=== PATIENT | female | born 1970 | race Hispanic/Latino ===

== ENCOUNTER 2018-02-20 14:14 | Emergency (ER) | payer SELFPAY ==
[2018-02-20] MEDS ORDERED: DEXTROSE 50% SYRINGE 50 ML IV STA (14:21)
[2018-02-20] MEDS ORDERED: DEXTROSE 50% SYRINGE 50 ML IV PRN (14:30)
[2018-02-20 14:40] LABS: BASOPHILS # (AUTO) 0.1 (0.0-0.1); BASOPHILS % 0.6 % (0.0-1.0); EOSINOPHILS # (AUTO) 0.2 (0.0-0.4); EOSINOPHILS % 2.9 % (0.0-6.0); HEMATOCRIT 39.9 % (34.2-44.1); HEMOGLOBIN 13.4 g/dL (12.0-16.0); LYMPHOCYTES # (AUTO) 3.3 (1.0-3.2); LYMPHOCYTES % 42.2 % (18.0-39.1); MEAN CORPUSCULAR HEMOGLOBIN 28.6 pg (28-32); MEAN CORPUSCULAR HGB CONC 33.6 g/dL (31-35); MEAN CORPUSCULAR VOLUME 85.3 fL (81-99); MONOCYTES # (AUTO) 0.8 (0.2-0.8); MONOCYTES % 9.7 % (4.4-11.3); NEUTROPHILS # (AUTO) 3.4 (2.1-6.9); NEUTROPHILS % 44.1 % (38.7-80.0); PLATELET COUNT 277 x10e3/uL (140-360); RED BLOOD COUNT 4.68 x10e6/uL (3.6-5.1); RED CELL DISTRIBUTION WIDTH 13.2 % (11.7-14.4)
[2018-02-20 14:58] LABS: ALANINE AMINOTRANSFERASE 23 IU/L (0-55); ALBUMIN 3.7 g/dL (3.5-5.0); ALKALINE PHOSPHATASE 136 IU/L (40-150); BLOOD UREA NITROGEN 9 mg/dL (7-26); BUN/CREATININE RATIO 12 (6-25); CALCIUM 9.3 mg/dL (8.4-10.2); CARBON DIOXIDE 25 mmol/L (22-29); CHLORIDE 106 mmol/L (98-107); CREATININE, SERUM 0.73 mg/dL (0.57-1.11); EST GLOMERULAR FILTRATION RATE > 60 ML/MIN (60-); SODIUM 142 mmol/L (136-145)
[2018-02-20 15:01] LABS: GLUCOSE 29 mg/dL (74-118)
[2018-02-20] MEDS ORDERED: POTASSIUM CHLORIDE 20 MEQ TAB CR PO STA (16:14)
[2018-02-20] MEDS ORDERED: POTASSIUM CHLORIDE 20 MEQ TAB CR PO NR (16:45)
== END 2018-02-20 17:04 | disposition home or self-care (01) ==
LOC: ER 14:14
DX: E11.649 Type 2 diabetes mellitus with hypoglycemia without coma (principal); E87.6 Hypokalemia; K52.9 Noninfective gastroenteritis and colitis, unspecified
CPT/HCPCS: 36415; 80053; 82948; 85025; 99284

== ENCOUNTER 2018-03-23 13:15 | Emergency (ER) | payer SELFPAY ==
[~2018-03-23] VITALS: Ht 157.5 cm; Wt 77.1 kg
[2018-03-23] MEDS ORDERED: DEXTROSE 50% SYRINGE 50 ML IV STA (13:23)
--- OUTSIDE RECORDS SUMMARY | 2018-03-23 13:26 | XMS REPORT | Continuity of Care Document ---
Author Author Jean [facility] Interface Address Unknown Phone Unavailable Problems Problem Status Onset Date Classification Date Reported Comments Source CHEST PAIN Active 10/09/2017 [facility] Discharge Diagnosis: Brain concussion 04/11/2015 04/14/2015 [facility] Discharge Diagnosis: Mild nausea 04/11/2015 04/14/2015 [facility] DIZZINESS Active 04/11/2015 [facility] Discharge Diagnosis: Gastritis 12/25/2013 12/28/2013 [facility] Discharge Diagnosis: Acute gastroenteritis 12/25/2013 12/28/2013 [facility] DIARRHEA Active 12/25/2013 [facility] Knee pain<sup>4</sup> Active 03/18/2013 Problem 10/13/2017 Data migrated from [employer] on 10/25/14. [facility] Knee pain<sup>5</sup> Active 03/18/2013 Problem 04/14/2015 Data migrated from [employer] on 10/25/14. 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 [facility] Anxiety Active Problem 10/13/2017 [facility] Constipation<sup>2</sup> Active Problem 10/13/2017 Data migrated from [employer] on 10/25/14. [facility] Gastroesophageal reflux disease<sup>3</sup> Active Problem 10/13/2017 Data migrated from [employer] on 10/25/14. [facility] Liver function tests abnormal<sup>5</sup> Active Problem 10/13/2017 Data migrated from [employer] on 10/25/14. [facility] Major depressive disorder<sup>6</sup> Active Problem 10/13/2017 Data migrated from [employer] on 10/25/14. [facility] Menorrhagia<sup>7</sup> Active Problem 10/13/2017 Data migrated from [employer] on 10/25/14. [facility] Obesity Active Problem 10/13/2017 [facility] Skin tag Active Problem 10/13/2017 [facility] Type 1 diabetes mellitus well controlled<sup>8</sup> Active Problem 10/13/2017 Data migrated from [employer] on 10/25/14. [facility] Urinary tract infectious disease<sup>9</sup> Resolved Problem 10/13/2017 Data migrated from [employer] on 12/13/14. [facility] Abdominal pain<sup>1</sup> Active Problem 04/14/2015 Data migrated from [employer] on 10/25/14. [facility] Acute bronchitis<sup>2</sup> Resolved Problem 04/14/2015 Data migrated from [employer] on 12/13/14. [facility] Constipation<sup>3</sup> Active Problem 04/14/2015 Data migrated from [employer] on 10/25/14. [facility] Gastroesophageal reflux disease<sup>4</sup> Active Problem 04/14/2015 Data migrated from [employer] on 10/25/14. [facility] Liver function tests abnormal<sup>6</sup> Active Problem 04/14/2015 Data migrated from [employer] on 10/25/14. [facility] Major depressive disorder<sup>7</sup> Active Problem 04/14/2015 Data migrated from [employer] on 10/25/14. [facility] Menorrhagia<sup>8</sup> Active Problem 04/14/2015 Data migrated from [employer] on 10/25/14. [facility] Type 1 diabetes mellitus well controlled<sup>9</sup> Active Problem 04/14/2015 Data migrated from [employer] on 10/25/14. [facility] Urinary tract infectious disease<sup>10</sup> Resolved Problem 04/14/2015 Data migrated from [employer] on 12/13/14. [facility] DMII KETO NT ST UNCNTRLD Active [facility] Medications Medication Details Route Status Patient Instructions Ordering Provider Order Date Source Insulin Lispro 8 unit, 0.08 mL, Route: SUB-Q, Drug form: SOLN, TID-Before Meals, Dosing Weight 80.909, kg, PRN Blood Glucose Results, Start date: 10/09/17 18:44:00 CDT, Duration: 30 day, Stop date: 11/08/17 18:43:0 0 CDTNotes: (Same as: Humalog ) Roll in palms of hands gently; Do not shake `vigorously. "Single Patient Use Only " WASTE: F/P - Black; E - Municipal Trash Bin Stable for 28 days at room temperature. Expires in days from Date No Longer Active 10/09/2017 [facility] Dextrose 50% Syringe 25 gm, 50 mL, Route: IVP, Drug Form: INJ, Dosing Weight 80.909, kg, PRN, PRN Blood Glucose Results, Start date: 10/09/17 18:44:00 CDT, Duration: 30 day, Stop date: 11/08/17 18:43:00 CDT No Longer Active 10/09/2017 [facility] Glucagon 1 mg, Route: IM, Drug form: PDR/INJ, PRN, Dosing Weight 80.909, kg, PRN Blood Glucose Results, Start date: 10/09/17 18:44:00 CDT, Duration: 30 day, Stop date: 11/08/17 18:43:00 CDT No Longer Active 10/09/2017 [facility] Dextrose 50% Syringe 25 gm, 50 mL, Route: IVP, Drug Form: INJ, Dosing Weight 80.909, kg, PRN, PRN Blood Glucose Results, Start date: 10/09/17 17:50:00 CDT, Duration: 30 day, Stop date: 11/08/17 17:49:00 CDT Inactive 10/09/2017 [facility] Glucagon 1 mg, Route: IM, Drug form: PDR/INJ, PRN, Dosing Weight 80.909, kg, PRN Blood Glucose Results, Start date: 10/09/17 17:50:00 CDT, Duration: 30 day, Stop date: 11/08/17 17:49:00 CDT Inactive 10/09/2017 [facility] Restoril 15 mg, 1 cap, Route: PO, Drug form: CAP, Bedtime, Dosing Weight 80.909, kg, PRN Sleep, Start date: 10/09/17 12:51:00 CDT, Duration: 30 day, Stop date: 11/08/17 12:50:00 CDTNotes: (Same As: Restoril) No Longer Active 10/09/2017 [facility] Ativan 1 mg, 1 tab, Route: PO, Drug form: TAB, TID, Dosing Weight 80.909, kg, PRN Anxiety, Start date: 10/09/17 12:51:00 CDT, Duration: 30 day, Stop date: 11/08/17 12:50:00 CDTNotes: (Same as: Ativan) No Longer Active 10/09/2017 [facility] Dextrose 50% Syringe 25 gm, 50 mL, Route: IVP, Drug Form: INJ, Dosing Weight 80.909, kg, PRN, PRN Blood Glucose Results, Start date: 10/09/17 12:48:00 CDT, Duration: 30 day, Stop date: 11/08/17 12:47:00 CDT Inactive 10/09/2017 [facility] Glucagon 1 mg, Route: IM, Drug form: PDR/INJ, PRN, Dosing Weight 80.909, kg, PRN Blood Glucose Results, Start date: 10/09/17 12:48:00 CDT, Duration: 30 day, Stop date: 11/08/17 12:47:00 CDT Inactive 10/09/2017 [facility] Saline Flush 0.9% 10 ml, Route: IVP, Drug Form: INJ, Dosing Weight 80.909, kg, PRN, PRN Line Flush, Start date: 10/09/17 12:43:00 CDT, Duration: 30 day, Stop date: 11/08/17 12:42:00 CDTNotes: (Same as: BD Posiflush) No Longer Active 10/09/2017 [facility] Acetaminophen 650 mg, 2 tab, Route: PO, Drug form: TAB, Q4H, Dosing Weight 80.909, kg, PRN Pain 1-3/Temp > 100.4 F, Start date: 10/09/17 12:43:00 CDT, Duration: 30 day, Stop date: 11/08/17 12:42:00 CDTNotes: Do not exceed 4 gm/day. (Same as: Tylenol) No Longer Active 10/09/2017 [facility] Regular Insulin, Human 100 UNT/ML Injectable Solution [Humulin R] 12 unit, SUB-Q, TID-Before Meals, 0 Refill(s) Active 10/09/2017 [facility] Tresiba FlexTouch 30 unit, SUB-Q, Daily, 0 Refill(s) Active 10/09/2017 [facility] Rosuvastatin calcium 10 MG Oral Tablet [Crestor] 10 mg=1 tab, PO, Bedtime, # 30 tab, 0 Refill(s) Active 10/09/2017 [facility] Citalopram 10 mg, PO, Daily, 0 Refill(s) Active 10/09/2017 [facility] meclizine 25 mg oral tablet 25 mg=1 tab, PO, TID, PRN as needed for dizziness, X 3 day, # 10 tab, 0 Refill(s) Active 04/11/2015 [facility] Ondansetron 4 MG Disintegrating Tablet [Zofran] 4 mg=1 tab, PO, BID, PRN Nausea and Vomiting, Dissolve tab under tongue, X 5 day, # 10 tab, 0 Refill(s) Active 04/11/2015 [facility] Reglan 10 mg, Route: IVP, Drug form: INJ, ONCE, Dosing Weight 72.727, kg, Priority: STAT, Start date: 04/11/15 16:55:00, Stop date: 04/11/15 16:55:00 Inactive 04/11/2015 [facility] Meclizine 25 mg, Route: PO, Drug form: TAB, ONCE, Dosing Weight 72.727, kg, Priority: STAT, Start date: 04/11/15 16:55:00, Stop date: 04/11/15 16:55:00 Inactive 04/11/2015 [facility] Protonix 40 mg, Route: IVP, Drug form: INJ, ONCE, Dosing Weight 72.727, kg, Priority: STAT, Start date: 04/11/15 14:53:00, Stop date: 04/11/15 14:53:00Notes: For IV push reconstitute with 10 ml 0.9% sodium chloride and push over 2 minutes. (Same as: Protonix) Inactive 04/11/2015 [facility] Ondansetron 4 mg, 2 mL, Route: IVP, Drug form: INJ, ONCE, Dosing Weight 72.727, kg, Priority: STAT, Start date: 04/11/15 14:52:00, Stop date: 04/11/15 14:52:00Notes: (Same as: Shruthi) MEDICATION WASTE Product Size: 4 mg Product Wasted: ___ mg Inactive 04/11/2015 [facility] Glucagon 1 mg, Route: IM, Drug form: PDR/INJ, PRN, Dosing Weight 72.727, kg, PRN Blood Glucose Results, Start date: 04/11/15 14:52:00, Duration: 30 day, Stop date: 05/11/15 14:51:00 No Longer Active 04/11/2015 [facility] Dextrose 50% Syringe 12.5 gm, 25 mL, Route: IVP, Drug Form: INJ, Dosing Weight 72.727, kg, PRN, PRN Blood Glucose Results, Start date: 04/11/15 14:52:00, Duration: 30 day, Stop date: 05/11/15 14:51:00 No Longer Active 04/11/2015 [facility] Saline Flush 0.9% 10 mL, Route: IVP, Drug Form: INJ, Dosing Weight 72.727, kg, PRN, PRN Line Flush, Start date: 04/11/15 14:52:00, Duration: 30 day, Stop date: 05/11/15 14:51:00Notes: (Same as: BD Posiflush) No Longer Active 04/11/2015 [facility] Sodium Chloride 0.154 MEQ/ML Injectable Solution 1,000 mL, 1,000 ml/hr, Infuse Over: 1 hr, Route: IV, 1,000, Drug form: INJ, ONCE, Priority: STAT, Dosing Weight 72.727 kg, Start date: 04/11/15 14:52:00, Duration: 1 doses or times, Stop date: 04/11/15 14:52:00 Inactive 04/11/2015 [facility] Ondansetron 4 MG Disintegrating Tablet [Zofran] 4 mg=1 tab, PO, BID, Nausea and Vomiting, Dissolve tab under tongue, # 10 tab, 0 Refill(s)Special Instructions: Dissolve tab under tongue Active 12/25/2013 [facility] tramadol hydrochloride 50 MG Oral Tablet 50 mg=1 tab, PO, Q6H, Pain, # 10 tab, 0 Refill(s) Active 12/25/2013 [facility] Famotidine 20 MG Oral Tablet [Pepcid] 20 mg=1 tab, PO, BID, # 30 tab, 0 Refill(s) Active 12/25/2013 [facility] Ciprofloxacin 500 MG Oral Tablet [Cipro] 500 mg=1 tab, PO, Q12H, # 6 tab, 0 Refill(s) Active 12/25/2013 [facility] GI cocktail 30 mL, Route: PO, Dosing Weight 68.182, kg, ONCE, STAT, Start date: 12/25/13 5:28:00, Stop date: 12/25/13 5:28:00 Inactive 12/25/2013 [facility] Sodium Chloride 0.154 MEQ/ML Injectable Solution 1,000 mL, 1,000 ml/hr, Infuse Over: 1 hr, Route: IV, 1,000, Drug form: INJ, ONCE, Priority: STAT, Dosing Weight 68.182 kg, Start date: 12/25/13 5:27:00, Duration: 1 doses or times, Stop date: 12/25/13 5:27:00 Inactive 12/25/2013 [facility] Zofran 4 mg, Route: IVP, Drug form: INJ, ONCE, Dosing Weight 68.182, kg, Priority: STAT, Start date: 12/25/13 5:26:00, Stop date: 12/25/13 5:26:00 Inactive 12/25/2013 [facility] Morphine 4 mg, Route: IVP, Drug form: INJ, ONCE, Dosing Weight 68.182, kg, Priority: STAT, Start date: 12/25/13 5:26:00, Stop date: 12/25/13 5:26:00 Inactive 12/25/2013 [facility] Pepcid 20 mg, Route: IV, ONCE, Dosing Weight 68.182, kg, Start date: 12/25/13 5:26:00, Stop date: 12/25/13 5:26:00 Inactive 12/25/2013 [facility] Sodium Chloride 0.154 MEQ/ML Injectable Solution 1,000 mL, 1,000 ml/hr, Infuse Over: 1 hr, Route: IV, ONCE, Priority: STAT, Dosing Weight 68.182 kg, Start date: 12/25/13 4:36:00, Duration: 1 doses or times, Stop date: 12/25/13 4:36:00 Inactive 12/25/2013 [facility] Zofran 4 mg, Route: IVP, Drug form: INJ, ONCE, Dosing Weight 68.182, kg, Priority: STAT, Start date: 12/25/13 4:35:00, Stop date: 12/25/13 4:35:00 Inactive 12/25/2013 [facility] Dale 7.5/325 oral tablet 1 tab, PO, Q6H, PRN, 40 tab, Pain, Substitution Allowed, Maintenance, TAB PO Active [facility] 11/12/2012 [facility] fluoxetine 10 mg oral capsule 10 mg, 1 cap, PO, Daily, 30 cap, 2, 2, Substitution Allowed, CAP PO Active [facility] 11/12/2012 [facility] ranitidine 150 mg oral tablet 150 mg, 1 tab, Route: PO, Drug form: TAB, BID, Dosing Weight 59.091, kg, Start date: 11/12/12 9:00:00, Duration: 30 day, Stop date: 12/11/12 17:00:00 PO No Longer Active [facility] 11/12/2012 [facility] fluoxetine 10 mg, 1 cap, Route: PO, Drug form: CAP, Daily, Dosing Weight 59.091, kg, Start date: 11/12/12 9:00:00, Duration: 30 day, Stop date: 12/11/12 9:00:00 PO No Longer Active [facility] 11/12/2012 [facility] Levemir FlexPen 30 unit, 0.3 mL, Route: SUB-Q, Drug form: INJ, Q12H, Dosing Weight 59.091, kg, Start date: 11/12/12 9:00:00, Duration: 30 day, Stop date: 12/11/12 21:00:00 SUB-Q No Longer Active [facility] 11/12/2012 [facility] Pepcid 20 mg, 1 tab, Route: PO, Drug form: TAB, BID, Start date: 11/12/12 9:00:00, Duration: 30 day, Stop date: 12/11/12 17:00:00 PO No Longer Active [facility] 11/12/2012 [facility] NovoLog PenFill 15 unit, 0.15 mL, Route: SUB-Q, Drug form: SOLN, TID-Before Meals, Dosing Weight 59.091, kg, Start date: 11/12/12 7:30:00, Duration: 30 day, Stop date: 12/11/12 16:30:00 SUB-Q No Longer Active [facility] 11/12/2012 [facility] temazepam 15 mg, 1 cap, Route: PO, Drug form: CAP, Bedtime, Dosing Weight 59.091, kg, Start date: 11/11/12 23:00:00, Duration: 30 day, Stop date: 12/11/12 21:00:00 PO No Longer Active [facility] 11/12/2012 [facility] [place] 7.5/325 oral tablet 1 tab, Route: PO, Drug Form: TAB, Dosing Weight 59.091, kg, Q6H, PRN Pain, Start date: 11/11/12 22:54:00, Duration: 30 day, Stop date: 12/11/12 22:53:00 PO No Longer Active [facility] 11/12/2012 [facility] acetaminophen 1,000 mg, 2 tab, Route: PO, Drug form: TAB, Q4H, Dosing Weight 59.091, kg, PRN Headache, Start date: 11/11/12 22:53:00, Duration: 30 day, Stop date: 12/11/12 22:52:00 PO No Longer Active [facility] 11/12/2012 [facility] Levemir FlexPen 30 unit, 0.3 mL, Route: SUB-Q, Drug form: INJ, ONCE, Dosing Weight 59.091, kg, Priority: NOW, Start date: 11/11/12 21:34:00, Stop date: 11/11/12 21:34:00 SUB-Q No Longer Active [facility] 11/12/2012 [facility] NovoLog PenFill 15 unit, 0.15 mL, Route: SUB-Q, Drug form: SOLN, ONCE, Dosing Weight 59.091, kg, Priority: NOW, Start date: 11/11/12 21:33:00, Stop date: 11/11/12 21:33:00 SUB-Q No Longer Active [facility] 11/12/2012 [facility] nitroglycerin 0.4 mg sublingual tablet 0.4 mg, 1 tab, Route: SL, Drug form: TAB, Q5Min, PRN Chest Pain, Start date: 11/11/12 21:01:00, Duration: 30 day, Stop date: 12/11/12 21:00:00 SL No Longer Active [facility] 11/12/2012 [facility] atropine 0.5 mg, 5 mL, Route: IVP, Drug form: INJ, PRN, PRN Bradycardia, Start date: 11/11/12 21:01:00, Duration: 30 day, Stop date: 12/11/12 21:00:00 IVP No Longer Active [facility] 11/12/2012 [facility] insulin aspart 4 unit, 0.04 mL, Route: SUB-Q, Drug form: SOLN, TID-Before Meals, Dosing Weight 59.091, kg, PRN Blood Glucose Results, Start date: 11/11/12 20:48:00, Duration: 30 day, Stop date: 12/11/12 20:47:00 SUB-Q No Longer Active [facility] 11/12/2012 [facility] glucagon 1 mg, Route: IM, Drug form: PDR/INJ, PRN, Dosing Weight 59.091, kg, PRN Blood Glucose Results, Start date: 11/11/12 20:48:00, Duration: 30 day, Stop date: 12/11/12 20:47:00 IM No Longer Active [facility] 11/12/2012 [facility] Dextrose 50% Syringe 12.5 gm, 25 mL, Route: IVP, Drug Form: INJ, Dosing Weight 59.091, kg, PRN, PRN Blood Glucose Results, Start date: 11/11/12 20:48:00, Duration: 30 day, Stop date: 12/11/12 20:47:00 IVP No Longer Active [facility] 11/12/2012 [facility] NovoLog PenFill 100 units/mL subcutaneous solution 5 unit, SUB-Q, TID-Before Meals, 3 mL, Substitution Allowed, SOLN SUB-Q Active 11/11/2012 [facility] ranitidine 150 mg oral tablet 150 mg, 1 tab, PO, BID, PRN, 60 tab, heartburn, Substitution Allowed PO Active [facility] 11/11/2012 [facility] Lantus Solostar Pen 100 units/mL subcutaneous solution 20 unit, SUB-Q, Bedtime, 10 ml, Substitution Allowed, SOLN SUB-Q Active 11/11/2012 [facility] Lantus Solostar Pen 100 units/mL subcutaneous solution 30 unit, SUB-Q, Daily, 10 ml, Substitution Allowed, SOLN SUB-Q Active 11/11/2012 [facility] fluoxetine 10 mg oral capsule 10 mg, 1 cap, PO, Daily, 60 cap, Substitution Allowed, CAP PO No Longer Active [facility] 11/11/2012 [facility] magnesium sulfate 2 gm, 50 mL, Route: IVPB, Drug form: INJ, ONCE, Dosing Weight 59.091, kg, Total dose=2 gm, Start date: 11/11/12 17:39:00, Duration: 1 doses or times, Stop date: 11/11/12 17:39:00 IVPB No Longer Active [facility] 11/11/2012 [facility] sodium phosphate + Dextrose 5% in Water IV 250 mL 30 mmol, 10 mL, Route: IVPB, ONCE, Dosing Weight 59.091, kg, Start date: 11/11/12 15:29:00, Duration: 1 doses or times, Stop date: 11/11/12 15:29:00, For PO4=1.5 - 1.9 mg/dL; Administer when K level > 3.9mEq/L.For PO4=1.5 - 1.9 mg/dL; Administer when K level > 3.9mEq/L. IVPB No Longer Active [facility] 11/11/2012 [facility] ondansetron 4 mg, Route: IVP, Drug form: INJ, ONCE, Dosing Weight 59.091, kg, Priority: STAT, Start date: 11/11/12 15:28:00, Stop date: 11/11/12 15:28:00 IVP No Longer Active [facility] 11/11/2012 [facility] NS 1,000 mL 1,000 mL, Rate: 150 ml/hr, Infuse over: 6.7 hr, Route: IV, Dosing Weight 59.091 kg, Total Volume: 1,000, Start date: 11/11/12 14:57:00, Duration: 30 day, Stop date: 12/11/12 14:56:00 IV No Longer Active [facility] 11/11/2012 [facility] NS (Bolus) IV 1,000 mL 1,000 mL, Rate: 1,000 ml/hr, Infuse over: 1 hr, Route: IV, Dosing Weight 59.091 kg, Total Volume: 1,000, Priority: STAT, Start date: 11/11/12 14:57:00, Duration: 1 doses or times, Stop date: 11/11/12 15:56:00, Bolus DoseBolus Dose IV No Longer Active [facility] 11/11/2012 [facility] Saline Flush 0.9% 5 mL, Route: IVP, Drug Form: INJ, Dosing Weight 59.091, kg, PRN, PRN Line Flush, Start date: 11/11/12 14:25:00, Duration: 30 day, Stop date: 12/11/12 14:24:00 IVP No Longer Active [facility] 11/11/2012 [facility] Dextrose 50% Syringe 12.5 gm, 25 mL, Route: IVP, Drug Form: INJ, Dosing Weight 59.091, kg, PRN, PRN Blood Glucose Results, Start date: 11/11/12 14:25:00, Duration: 30 day, Stop date: 12/11/12 14:24:00, If Blood Glucose is 40 - 60 mg/dL. For patients that are Unconscious o... IVP No Longer Active [facility] 11/11/2012 [facility] glucagon 1 mg, Route: IM, Drug form: PDR/INJ, PRN, Dosing Weight 59.091, kg, PRN Blood Glucose Results, Start date: 11/11/12 14:25:00, Duration: 30 day, Stop date: 12/11/12 14:24:00, For BG IM No Longer Active [facility] 11/11/2012 [facility] Phenergan 25 mg oral tablet 25 mg, 1 tab, PO, Q4H, PRN, 15 tab, Nausea, Substitution Allowed PO Active [facility] 09/04/2012 [facility] Ultram 50 mg oral tablet 50 mg, 1 tab, PO, Q4H, PRN, 20 tab, pain, Substitution Allowed PO Active [facility] 09/04/2012 [facility] Macrobid 100 mg oral capsule 100 mg, 1 cap, PO, BID, 14 cap, Substitution Allowed PO Active [facility] 09/04/2012 [facility] ondansetron 4 mg, Route: IVP, Drug form: INJ, ONCE, Dosing Weight 77.273, kg, Priority: STAT, Start date: 09/04/12 2:28:00, Stop date: 09/04/12 2:28:00 IVP No Longer Active [facility] 09/04/2012 [facility] ondansetron 4 mg, Route: PO, Drug form: TABDIS, ONCE, Dosing Weight 77.273, kg, Priority: STAT, Start date: 09/04/12 2:11:00, Stop date: 09/04/12 2:11:00 PO No Longer Active [facility] 09/04/2012 [facility] GI cocktail 30 ml, Route: PO, Drug Form: SUSP, Dosing Weight 77.273, kg, ONCE, Formulation #1: (Maalox 30ml - Viscous Lidocaine 10ml - Elixir 10ml), STAT, Start date: 09/04/12 2:11:00, Stop date: 09/04/12 2:11:00 PO No Longer Active [facility] 09/04/2012 [facility] Saline Flush 0.9% 5 mL, Route: IVP, Drug Form: INJ, Dosing Weight 77.273, kg, PRN, PRN Line Flush, Start date: 09/04/12 2:11:00, Duration: 24 hr, Stop date: 09/05/12 2:10:00 IVP No Longer Active [facility] 09/04/2012 [facility] Colace 100 mg oral capsule 100 mg, 1 cap, PO, Daily, 30 cap, Substitution Allowed, CAP PO Active [facility] 12/23/2011 [facility] Protonix 40 mg oral enteric coated tablet 40 mg, 1 tab, PO, Daily, 60 tab, Substitution Allowed, May substitute to another PPI less costly., ECTABMay substitute to another PPI less costly. PO Active [facility] 12/23/2011 [facility] Humulin N 100 units/mL subcutaneous injection 20 unit, 0.2 mL, SUB-Q, QAM, 1 vial, Substitution Allowed, SUSP SUB- Q Active [facility] 12/23/2011 [facility] Humulin N 20 unit, 0.2 mL, Route: SUB-Q, Drug form: INJ, QAM, Start date: 12/23/11 9:00:00, Duration: 30 day, Stop date: 01/21/12 9:00:00 SUB-Q No Longer Active [facility] 12/23/2011 [facility] Dextrose 5% with 0.45% NaCl IV 1,000 mL 1,000 mL, Rate: 30 ml/hr, Infuse over: 33.3 hr, Route: IV, Dosing Weight 60 kg, Total Volume: 1,000, Start date: 12/22/11 21:45:00, Stop date: 01/21/12 21:44:00 IV No Longer Active [facility] 12/23/2011 [facility] Humulin N 20 unit, 0.2 mL, Route: SUB-Q, Drug form: INJ, QPM, Start date: 12/22/11 17:00:00, Duration: 30 day, Stop date: 01/20/12 17:00:00 SUB-Q No Longer Active [facility] 12/22/2011 [facility] Humulin N 5 unit, 0.05 mL, Route: SUB-Q, Drug form: INJ, ONCE, Start date: 12/22/11 10:00:00, Stop date: 12/22/11 10:00:00 SUB-Q No Longer Active [facility] 12/22/2011 [facility] Sodium Chloride 0.45% IV 1,000 mL 1,000 mL, Rate: 100 ml/hr, Infuse over: 10 hr, Route: IV, Dosing Weight 60 kg, Total Volume: 1,000, Start date: 12/22/11 8:15:00, Duration: 30 day, Stop date: 01/21/12 8:14:00 IV No Longer Active [facility] 12/22/2011 [facility] Humulin N 15 unit, 0.15 mL, Route: SUB-Q, Drug form: INJ, Breakfast, Start date: 12/22/11 8:00:00, Duration: 30 day, Stop date: 01/20/12 8:00:00 SUB-Q No Longer Active [facility] 12/22/2011 [facility] Dextrose 50% in Water IV 50 mL, Route: IVP, Start date: 12/21/11 18:39:00, Duration: 30 day, Stop date: 01/20/12 18:38:00, PRN Blood Glucose Results IVP No Longer Active [facility] 12/21/2011 [facility] NovoLog FlexPen 18 unit, 0.18 mL, Route: SUB-Q, Drug form: SOLN, Sliding Scale, PRN Blood Glucose Results, Start date: 12/21/11 18:39:00, Duration: 30 day, Stop date: 01/20/12 18:38:00 SUB-Q No Longer Active [facility] 12/21/2011 [facility] glucagon 1 mg, Route: IM, Drug form: PDR/INJ, PRN, PRN Blood Glucose Results, Start date: 12/21/11 18:39:00, Duration: 30 day, Stop date: 01/20/12 18:38:00 IM No Longer Active [facility] 12/21/2011 [facility] enoxaparin 40 mg, 0.4 mL, Route: SUB-Q, Drug form: INJ, [id number], Start date: 12/21/11 12:00:00, Duration: 30 day, Stop date: 01/19/12 12:00:00 SUB-Q No Longer Active [place] 12/21/2011 [facility] Colace 100 mg oral capsule 100 mg, 1 cap, Route: PO, Drug form: CAP, Daily, Start date: 12/21/11 9:00:00, Duration: 30 day, Stop date: 01/19/12 9:00:00 PO No Longer Active [place] 12/21/2011 [facility] Citrate of Magnesia 150 mL, Route: PO, Drug Form: LIQ, ONCALL, PRN Bowel Movements, Start date: 12/21/11 8:00:00, Duration: 1 doses or times, Stop date: 12/22/11 0:00:00 PO No Longer Active [place] 12/21/2011 [facility] potassium phosphate + Sodium Chloride 0.9% IV 250 mL 14 mmol, 4.67 mL, Route: IV, ONCE, Start date: 12/21/11 2:28:00, Stop date: 12/21/11 2:28:00 IV No Longer Active [place] 12/21/2011 [facility] acetaminophen 500 mg, 1 tab, Route: PO, Drug form: TAB, Q6H, PRN Pain/Fever, Start date: 12/20/11 22:14:00, Duration: 30 day, Stop date: 01/19/12 22:13:00 PO No Longer Active [place] 12/21/2011 [facility] Saline Flush 0.9% 5 ml, Route: IVP, Drug Form: INJ, Q12H, Start date: 12/20/11 21:00:00, Duration: 30 day, Stop date: 01/19/12 9:00:00 IVP No Longer Active [place]iceo 12/21/2011 [facility] magnesium citrate 150 ml, Route: PO, Drug Form: LIQ, ONCE, Start date: 12/20/11 16:52:00, Stop date: 12/20/11 16:52:00 PO No Longer Active [place] 12/20/2011 [facility] Protonix 40 mg, 1 tab, Route: PO, Drug form: ECTAB, Daily, Start date: 12/20/11 16:30:00, Duration: 30 day, Stop date: 01/18/12 16:30:00 PO No Longer Active [place] 12/20/2011 [facility] [place] Heartburn Relief 2 tab, PO, PRN, PRN, heartburn, Substitution Allowed, Soft Stop PO Active 12/20/2011 [facility] Tylenol Cap[place] Extra Strength 500 mg oral tablet 1,000 mg, 2 tab, PO, Q4H, PRN, 120 tab, headache, Substitution Allowed PO Active 12/20/2011 [facility] Novolin N PenFill 100 units/mL subcutaneous injection 15 unit, SUB-Q, BID, 3 ml, Substitution Allowed, SUSP SUB- Q No Longer Active 12/20/2011 [facility] Novolin R PenFill 100 units/mL injectable solution per sliding scale, SUB-Q, QID-Before Meals, Substitution Allowed SUB-Q Active 12/20/2011 [facility] Zofran 4 mg, 2 mL, Route: IVP, Drug form: INJ, Q6H, PRN as needed for nausea/vomiting, Start date: 12/20/11 14:50:00, Duration: 30 day, Stop date: 01/19/12 14:49:00 IVP No Longer Active [place] 12/20/2011 [facility] chlorhexidine topical 4% soap 1 appl, Route: BATHE, Q24H, Start date: 12/20/11 14:00:00, Duration: 30 day, Stop date: 01/18/12 14:00:00 BATHE No Longer Active [facility] 12/20/2011 [facility] D5W 1/2NS 1,000 mL 1,000 mL, Rate: 100 ml/hr, Infuse over: 10 hr, Route: IV, Dosing Weight 59.091 kg, Total Volume: 1,000, Start date: 12/20/11 14:00:00, Stop date: 01/19/12 13:59:00 IV No Longer Active [place] 12/20/2011 [facility] Saline Flush 0.9% 5 ml, Route: IVP, Drug Form: INJ, PRN, PRN Line Flush, Start date: 12/20/11 13:12:00, Duration: 30 day, Stop date: 01/19/12 13:11:00 IVP No Longer Active [facility] 12/20/2011 [facility] Dextrose 50% in Water IV 50 mL, Route: IVP, Start date: 12/20/11 9:29:00, Duration: 30 day, Stop date: 01/19/12 9:28:00, PRN Blood Glucose Results IVP No Longer Active [facility] 12/20/2011 [facility] potassium phosphate + Sodium Chloride 0.9% IV 250 mL 14 mmol, 4.67 mL, Route: IVPB, PRN, PRN Abnormal Lab Result, Start date: 12/20/11 9:28:00, Duration: 1 doses or times, Stop date: Limited # of times IVPB No Longer Active [facility] 12/20/2011 [facility] potassium phosphate + Sodium Chloride 0.9% IV 250 mL 7 mmol, 2.33 mL, Route: IVPB, PRN, PRN Abnormal Lab Result, Start date: 12/20/11 9:27:00, Duration: 1 doses or times, Stop date: Limited # of times IVPB No Longer Active [facility] 12/20/2011 [facility] potassium chloride 20 mEq, 100 mL, Route: IVPB, Drug form: INJ, PRN, PRN Abnormal Lab Result, Start date: 12/20/11 9:26:00, Duration: 3 doses or times, Stop date: Limited # of times IVPB No Longer Active [facility] 12/20/2011 [facility] potassium chloride 20 mEq, 100 mL, Route: IVPB, Drug form: INJ, PRN, PRN Abnormal Lab Result, Start date: 12/20/11 9:25:00, Duration: 2 doses or times, Stop date: Limited # of times IVPB No Longer Active [facility] 12/20/2011 [facility] Novolin R 100 unit + Sodium Chloride 0.9% IV 99 mL 99 mL, Rate: Titrate per DKA protocol, Route: IV, Dosing Weight 59.091 kg, Total Volume: 100, Start date: 12/20/11 9:25:00, Duration: 30 day, Stop date: 01/19/12 9:24:00 IV No Longer Active [facility] 12/20/2011 [facility] Sodium Chloride 0.9% IV 1,000 mL 1,000 mL, Rate: 500 ml/hr, Infuse over: 2 hr, Route: IV, Dosing Weight 59.091 kg, Total Volume: 1,000, Start date: 12/20/11 9:23:00, Duration: 2 doses or times, Stop date: 12/20/11 13:22:00 IV No Longer Active [facility] 12/20/2011 [facility] NS + KCL 20mEq/L 1000ml (Premix) 1,000 mL 1,000 mL, Rate: 200 ml/hr, Infuse over: 5 hr, Route: IV, Dosing Weight 59.091 kg, Total Volume: 1,000, Start date: 12/20/11 8:46:00, Duration: 30 day, Stop date: 01/19/12 8:45:00 IV No Longer Active [facility] 12/20/2011 [facility] Sodium Chloride 0.9% (Bolus) IV 1,000 mL 1,000 mL, Rate: 1,000 ml/hr, Infuse over: 1 hr, Route: IV, Dosing Weight 59.091 kg, Total Volume: 1,000, Bolus dose, Priority: STAT, Start date: 12/20/11 8:12:00, Duration: 1 doses or times, Stop date: 12/20/11 9:11:00 IV No Longer Active [facility] 12/20/2011 [facility] Saline Flush 0.9% 5 ml, Route: IVP, Drug Form: INJ, PRN, PRN Line Flush, Start date: 12/20/11 8:12:00, Duration: 24 hr, Stop date: 12/21/11 8:11:00 IVP No Longer Active [place]iceo 12/20/2011 [facility] hydromorphone 1 mg, 1 mL, Route: IVP, Drug form: SOLN, ONCE, Priority: STAT, Start date: 12/20/11 8:12:00, Stop date: 12/20/11 8:12:00 IVP No Longer Active [facility] 12/20/2011 [facility] ondansetron 4 mg, 2 mL, Route: IVP, Drug form: INJ, ONCE, Priority: STAT, Start date: 12/20/11 8:12:00, Stop date: 12/20/11 8:12:00 IVP No Longer Active [facility] 12/20/2011 [facility] Reglan 10 mg, 2 mL, Route: IVP, Drug form: INJ, ONCE, Priority: STAT, Start date: 12/20/11 8:12:00, Stop date: 12/20/11 8:12:00 IVP No Longer Active [facility] 12/20/2011 [facility] Allergies, Adverse Reactions, Alerts Substance Category Reaction Severity Reaction type Status Date Reported Comments Source iodine Assertion Drug allergy Active [facility] Immunizations Immunization Date Given Site Status Last Updated Comments Source Hx influenza vaccine-unspecified<sup>1</sup> 03/14/2016 completed [place] Location History: work [facility] Hx influenza vaccine-unspecified<sup>2</sup> 03/18/2013 completed GE Result Comment: done. Migrated from OBS ; Data migrated from [employer] on 06/30/2015. [facility] influenza virus vaccine, inactivated<sup>3</sup> 03/18/2013 Right Deltoid completed GE Result Comment: fluzone (>3 yrs.) [[id number]]. Migrated from OBS ; Data migrated from [employer] on 06/30/2015. [facility] Results Order Name Results Value Reference Range Date Interpretation Comments Source ENDOCRINOLOGY S Preg Negative *NA* (10/10/17 5:10 AM) Negative 10/10/2017 [facility] Cardiac SPECT multi studies NM Cardiac SPECT multi studies NM Location: [facility] The patient exercised for 7 minutes and 36 seconds on Rolo protocol. The patient reached 92% of the target heart rate. Cardiolite was injected during peak stress as well as during rest. The myocardial perfusion was obtained using standard procedure. The myocardial perfusion was normal during both phases. No evidence of ischemia. Ejection fraction was 74 % with normal wall motion. IMPRESSION: Normal myocardial perfusion study. [id number] 10/10/2017 - - Read by: Sarah Merrill MD Dictated Date/time: 10/10/17 13:53 Electronically Signed by: Sarah Merrill MD 10/10/17 13:54 FINAL REPORT [facility] LIPIDS VLDL 51 10/10/2017 [facility] LIPIDS CHD Risk 3.90 3.90 - 5.80 10/10/2017 [facility] LIPIDS Chol 187 mg/dL <=199 mg/dL 10/10/2017 [facility] LIPIDS HDL 48 mg/dL >=61 mg/dL 10/10/2017 [facility] LIPIDS LDL (Calculated) 88 mg/dL <=99 mg/dL 10/10/2017 [facility] LIPIDS Trig 256 mg/dL <=149 mg/dL 10/10/2017 [facility] CARDIAC ENZYMES Total CK 216 unit/L 12 - 10/10/2017 [facility] CARDIAC ENZYMES Troponin-I null 0.00 - 0.40 10/10/2017 [facility] CARDIAC ENZYMES CK MB Index 0.9 0.0 - 2.5 10/10/2017 [facility] CARDIAC ENZYMES CK MB 2.0 ng/mL 0.5 - 3.6 10/10/2017 [facility] CARDIAC ENZYMES CK MB Index 0.9 0.0 - 2.5 10/09/2017 [facility] CARDIAC ENZYMES CK MB 2.1 ng/mL 0.5 - 3.6 10/09/2017 [facility] CARDIAC ENZYMES Troponin-I null 0.00 - 0.40 10/09/2017 [facility] CARDIAC ENZYMES Total CK 244 unit/L - 10/09/2017 [facility] CHEM PANEL eGFR 85 mL/min/1.73m2 10/09/2017 Result Comment: The eGFR is calculated using the CKD-EPI formula. In most young, healthy individuals the eGFR will be >90 mL/min/1.73m2. The eGFR declines with age. An eGFR of 60-89 may be normal in some populations, particularly the elderly, for whom the CKD-EPI formula has not been extensively validated. Use of the eGFR is not recommended in the following populations: Individuals with unstable creatinine concentrations, including patients and those with serious co-morbid conditions. Patients with extremes in muscle mass or diet. The data above are obtained from the National Kidney Disease Education Program (NKDEP) which additionally recommends that when the eGFR is used in patients with extremes of body mass index for purposes of drug dosing, the eGFR should be multiplied by the estimated BMI. [facility] CHEM PANEL CO2 26 meq/L 24 - 32 10/09/2017 [facility] CHEM PANEL Chloride Lvl 106 meq/L 95 - 109 10/09/2017 [facility] CHEM PANEL Calcium Lvl 8.9 mg/dL 8.5 - 10.5 10/09/2017 [facility] CHEM PANEL Albumin Lvl 3.7 g/dL 3.5 - 5.0 10/09/2017 [facility] CHEM PANEL Total Protein 7.7 g/dL 6.4 - 8.4 10/09/2017 [facility] CHEM PANEL ALT 25 unit/L 0 - 65 10/09/2017 [facility] CHEM PANEL AST 17 unit/L 0 - 37 10/09/2017 [facility] CHEM PANEL Alk Phos 143 unit/L 39 - 136 10/09/2017 [facility] CHEM PANEL Bili Total 0.6 mg/dL 0.2 - 1.3 10/09/2017 [facility] CHEM PANEL AGAP 13.2 meq/L 10.0 - 20.0 10/09/2017 [facility] CHEM PANEL Globulin 4.0 g/dL 2.7 - 4.2 10/09/2017 [facility] CHEM PANEL B/C Ratio 17 6 - 25 10/09/2017 [facility] CHEM PANEL A/G Ratio 0.9 0.7 - 1.6 10/09/2017 [facility] CHEM PANEL BUN 14 mg/dL 7 - 22 10/09/2017 [facility] CHEM PANEL Glucose Lvl 89 mg/dL 70 - 99 10/09/2017 [facility] CHEM PANEL Sodium Lvl 141 meq/L 135 - 145 10/09/2017 [facility] CHEM PANEL Creatinine Lvl 0.84 mg/dL 0.50 - 1.40 10/09/2017 [facility] CHEM PANEL Potassium Lvl 4.2 meq/L 3.5 - 5.1 10/09/2017 [facility] CHEM PANEL Magnesium Lvl 2.5 mg/dL 1.8 - 2.4 10/09/2017 [facility] HEMATOLOGY Basophils 0.4 % 0.0 - 1.0 10/09/2017 [facility] HEMATOLOGY Segs-Bands # 7.8 K/CMM 1.5 - 8.1 10/09/2017 [facility] Monocytes # 0.1 K/CMM 0.0 - 0.8 10/09/2017 [facility] Lymphocytes # 0.9 K/CMM 1.0 - 5.5 10/09/2017 [facility] Lymphocytes 10.3 % 20.0 - 40.0 10/09/2017 [facility] Segs 88.2 % 45.0 - 75.0 10/09/2017 [facility] Monocytes 1.0 % 2.0 - 12.0 10/09/2017 [facility] Eosinophils 0.1 % 0.0 - 4.0 10/09/2017 [facility] MCH 28.1 pg 27.0 - 31.0 10/09/2017 [facility] MCHC 33.8 g/dL 32.0 - 36.0 10/09/2017 [facility] RDW 13.4 % 11.5 - 14.5 10/09/2017 [facility] Platelet 335 K/CMM 133 - 450 10/09/2017 [facility] MPV 9.2 fL 7.4 - 10.4 10/09/2017 [facility] WBC 8.8 K/CMM 3.7 - 10.4 10/09/2017 [facility] RBC 4.68 M/CMM 4.20 - 5.40 10/09/2017 [facility] MCV 83.0 fL 80.0 - 98.0 10/09/2017 [facility] Hgb 13.1 g/dL 12.0 - 16.0 10/09/2017 [facility] Hct 38.8 % 36.0 - 48.0 10/09/2017 [facility] Ext Lower Venous Doppler Bilat US Ext Lower Venous Doppler Bilat US Patient Name: AGUEDA NEWBY : 1970. Age: 46 years. Gender: Female. MR: [id number]. Location: [facility]. Provider: Sarah Merrill MD. EXAM: Ext Lower Venous Doppler Bilat US. PROVIDED CLINICAL HISTORY: Bilateral leg pains and swelling. Elevated d-dimer. TECHNIQUE: Grayscale, color Doppler, and spectral flow evaluation of the RIGHT and LEFT lower extremity veins. COMPARISON: No relevant prior exams available at the time of interpretation. FINDINGS: Spontaneous compressible flow with normal phasic waveforms and appropriate response to augmentation in all the imaged veins, including the common femoral, femoral, popliteal, posterior tibial, and imaged portions of the central saphenous veins. No evidence of deep venous thrombosis. No Antonio cyst or other abnormal fluid collection. IMPRESSION: No evidence of DVT in the imaged RIGHT or LEFT lower extremity veins. SL: NIYA 10/09/2017 - - Read by: Jaspal Bill MD Dictated Date/time: 10/09/17 15:00 Electronically Signed by: Jaspal Bill MD 10/09/17 15:01 FINAL REPORT [facility] CARDIAC ENZYMES CK MB 0.8 ng/mL 0.5 - 3.6 04/11/2015 [facility] CARDIAC ENZYMES Total CK 73 unit/L 12 - 191 04/11/2015 [facility] CARDIAC ENZYMES Troponin-I null 0.00 - 0.40 04/11/2015 [facility] CARDIAC ENZYMES CK MB Index 1.1 0.0 - 2.5 04/11/2015 [facility] CHEM PANEL Lipase Lvl 80 unit/L 73 - 393 04/11/2015 [facility] CHEM PANEL eGFR 92 mL/min/1.73m2 04/11/2015 Result Comment: The eGFR is calculated using the CKD-EPI formula. In most young, healthy individuals the eGFR will be >90 mL/min/1.73m2. The eGFR declines with age. An eGFR of 60-89 may be normal in some populations, particularly the elderly, for whom the CKD-EPI formula has not been extensively validated. Use of the eGFR is not recommended in the following populations: Individuals with unstable creatinine concentrations, including patients and those with serious co-morbid conditions. Patients with extremes in muscle mass or diet. The data above are obtained from the National Kidney Disease Education Program (NKDEP) which additionally recommends that when the eGFR is used in patients with extremes of body mass index for purposes of drug dosing, the eGFR should be multiplied by the estimated BMI. [facility] CHEM PANEL Total Protein 6.9 g/dL 6.4 - 8.4 04/11/2015 [facility] CHEM PANEL Calcium Lvl 8.5 mg/dL 8.5 - 10.5 04/11/2015 [facility] CHEM PANEL CO2 26 meq/L 24 - 32 04/11/2015 [facility] CHEM PANEL Creatinine Lvl 0.79 mg/dL 0.50 - 1.40 04/11/2015 [facility] CHEM PANEL Bili Total 0.3 mg/dL 0.2 - 1.3 04/11/2015 [facility] CHEM PANEL Alk Phos 139 unit/L 39 - 136 04/11/2015 [facility] CHEM PANEL AST 16 unit/L 0 - 37 04/11/2015 [facility] CHEM PANEL ALT 25 unit/L 0 - 65 04/11/2015 [facility] CHEM PANEL Albumin Lvl 3.1 g/dL 3.5 - 5.0 04/11/2015 [facility] CHEM PANEL Globulin 3.8 g/dL 2.0 - 4.0 04/11/2015 [facility] CHEM PANEL A/G Ratio 0.8 0.7 - 1.6 04/11/2015 [facility] CHEM PANEL B/C Ratio 10 6 - 25 04/11/2015 [facility] CHEM PANEL AGAP 9.8 meq/L 10.0 - 20.0 04/11/2015 [facility] CHEM PANEL BUN 8 mg/dL 7 - 22 04/11/2015 [facility] CHEM PANEL Glucose Lvl 165 mg/dL 70 - 99 04/11/2015 [facility] CHEM PANEL Sodium Lvl 140 meq/L 135 - 145 04/11/2015 [facility] CHEM PANEL Potassium Lvl 3.8 meq/L 3.5 - 5.1 04/11/2015 [facility] CHEM PANEL Chloride Lvl 108 meq/L 95 - 109 04/11/2015 [facility] CHEM PANEL Ketone Quantitative 0.06 mmol/L <=0.27 mmol/L 04/11/2015 [facility] HEMATOLOGY MCH 28.1 pg 27.0 - 31.0 04/11/2015 [facility] HEMATOLOGY RDW 13.1 % 11.5 - 14.5 04/11/2015 [facility] HEMATOLOGY MCHC 33.4 g/dL 32.0 - 36.0 04/11/2015 [facility] HEMATOLOGY MPV 10.3 fL 7.4 - 10.4 04/11/2015 [facility] HEMATOLOGY Platelet 242 K/CMM 133 - 450 04/11/2015 [facility] HEMATOLOGY Hgb 12.5 g/dL 12.0 - 16.0 04/11/2015 [facility] HEMATOLOGY Hct 37.5 % 36.0 - 48.0 04/11/2015 [facility] HEMATOLOGY MCV 84.2 fL 80.0 - 98.0 04/11/2015 [facility] HEMATOLOGY WBC 5.7 K/CMM 3.7 - 10.4 04/11/2015 [facility] HEMATOLOGY RBC 4.46 M/CMM 4.20 - 5.40 04/11/2015 [facility] HEMATOLOGY Monocytes # 0.6 K/CMM 0.0 - 0.8 04/11/2015 [facility] HEMATOLOGY Eosinophils # 0.3 K/CMM 0.0 - 0.5 04/11/2015 [facility] HEMATOLOGY Segs 50.1 % 45.0 - 75.0 04/11/2015 [facility] HEMATOLOGY Lymphocytes 32.6 % 20.0 - 40.0 04/11/2015 [facility] HEMATOLOGY Monocytes 11.1 % 2.0 - 12.0 04/11/2015 [facility] HEMATOLOGY Eosinophils 5.4 % 0.0 - 4.0 04/11/2015 [facility] HEMATOLOGY Segs-Bands # 2.8 K/CMM 1.5 - 8.1 04/11/2015 [facility] HEMATOLOGY Basophils 0.8 % 0.0 - 1.0 04/11/2015 [facility] HEMATOLOGY Lymphocytes # 1.8 K/CMM 1.0 - 5.5 04/11/2015 [facility] URINE AND STOOL UA Color Ltyellow 04/11/2015 [facility] URINE AND STOOL UA Urobilinogen <=1.0 mg/dL 0.1 - 1.0 04/11/2015 [facility] URINE AND STOOL UA Turbidity Clear (04/11/15 3:38 PM) Clear 04/11/2015 [facility] URINE AND STOOL UA Spec Grav 1.010 <=1.030 04/11/2015 [facility] URINE AND STOOL UA Blood Negative (04/11/15 3:38 PM) Negative 04/11/2015 [facility] URINE AND STOOL UA Nitrite Negative (04/11/15 3:38 PM) Negative 04/11/2015 [facility] URINE AND STOOL UA Protein Negative mg/dL Negative mg/dL 04/11/2015 [facility] URINE AND STOOL UA pH 7.0 5.0 - 8.0 04/11/2015 [facility] URINE AND STOOL UA Ketones Negative mg/dL Negative mg/dL 04/11/2015 [facility] URINE AND STOOL UA Glucose 150 mg/dL Negative mg/dL 04/11/2015 [facility] URINE AND STOOL UA Bili Negative *NA* (04/11/15 3:38 PM) Negative 04/11/2015 [facility] URINE AND STOOL UA Leuk Est Negative (04/11/15 3:38 PM) Negative 04/11/2015 [facility] URINE AND STOOL UA Sq Epi Occasional /LPF Few /LPF 04/11/2015 [facility] URINE CHEM U Preg Negative (04/11/15 3:38 PM) Negative 04/11/2015 [facility] Chest 1view DX Chest 1view DX PROCEDURE: Chest 1view REASON FOR EXAM: See Clinic Indication CLINICAL INDICATION: Chest pain COMPARISON: 11/11/2012. FINDINGS: No acute process. No focal consolidation, pleural effusion, or pneumothorax. Stable cardiac silhouette and mediastinum. SL: 12 04/11/2015 - - Read by: Jj Gao MD Dictated Date/time: 04/11/15 16:54 Electronically Signed by: Jj Gao MD 04/11/15 16:55 FINAL REPORT [facility] Brain wo contrast CT Brain wo contrast CT CT scan of the head without contrast: Exam reason: Headache with Trauma seizure Multiple computerized axial tomograms of the head were obtained without contrast. Mild cortical and cerebellar volume loss with compensatory enlargement of the ventricles and subarachnoid spaces is noted. Vascular calcification is noted. There is no acute cortical infarction or hemorrhage noted. There is no mass-effect or midline shift demonstrated. The ventricles are otherwise normal in size, shape and position. The base of skull and bony calvarium are intact. IMPRESSION: No acute intracranial abnormality is noted. Senescent changes are noted intracranially. SL:12 04/11/2015 - - Read by: Donald Coker MD Dictated Date/time: 04/11/15 15:40 Electronically Signed by: Donald Coker MD 04/11/15 15:41 FINAL REPORT [facility] URINE AND STOOL Fecal Leukocyte Few 3 (12/25/13 8:00 AM) 12/25/2013 3Interpretive Data: A Value of None Seen, Rare, or Few is Normal. [facility] URINE AND STOOL UA Color Colorless 12/25/2013 [facility] URINE AND STOOL UA Urobilinogen <=1.0 mg/dL 0.1 - 1.0 12/25/2013 [facility] URINE AND STOOL UA Blood Negative (12/25/13 7:41 AM) Negative 12/25/2013 [facility] URINE AND STOOL UA Nitrite Negative (12/25/13 7:41 AM) Negative 12/25/2013 [facility] URINE AND STOOL UA Ketones Trace mg/dL Negative mg/dL 12/25/2013 [facility] URINE AND STOOL UA Bili Negative *NA* (12/25/13 7:41 AM) Negative 12/25/2013 [facility] URINE AND STOOL UA Bacteria Occasional /HPF None Seen /HPF 12/25/2013 [facility] URINE AND STOOL UA RBC 1 /HPF 0 - 2 12/25/2013 [facility] URINE AND STOOL UA Sq Epi Occasional /LPF Few /LPF 12/25/2013 [facility] URINE AND STOOL UA WBC 1 /HPF 0 - 5 12/25/2013 [facility] URINE AND STOOL UA Leuk Est Negative (12/25/13 7:41 AM) Negative 12/25/2013 [facility] URINE AND STOOL UA pH 6.0 5.0 - 8.0 12/25/2013 [facility] URINE AND STOOL UA Spec Grav 1.015 <=1.030 12/25/2013 [facility] URINE AND STOOL UA Glucose 500 mg/dL Negative mg/dL 12/25/2013 [facility] URINE AND STOOL UA Protein Negative mg/dL Negative mg/dL 12/25/2013 [facility] URINE AND STOOL UA Turbidity Clear (12/25/13 7:41 AM) Clear 12/25/2013 [facility] URINE CHEM U Preg Negative (12/25/13 7:41 AM) Negative 12/25/2013 [facility] CHEM PANEL Lipase Lvl 53 unit/L 73 - 393 12/25/2013 [facility] CHEM PANEL A/G Ratio 0.9 0.7 - 1.6 12/25/2013 [facility] CHEM PANEL B/C Ratio 16 6 - 25 12/25/2013 [facility] CHEM PANEL Globulin 3.9 g/dL 2.0 - 4.0 12/25/2013 [facility] CHEM PANEL AGAP 9.8 meq/L 10.0 - 20.0 12/25/2013 [facility] CHEM PANEL Alk Phos 129 unit/L 39 - 136 12/25/2013 [facility] CHEM PANEL Bili Total 0.6 mg/dL 0.2 - 1.3 12/25/2013 [facility] CHEM PANEL AST 12 unit/L 0 - 37 12/25/2013 [facility] CHEM PANEL ALT 19 unit/L 0 - 65 12/25/2013 [facility] CHEM PANEL Total Protein 7.6 g/dL 6.4 - 8.4 12/25/2013 [facility] CHEM PANEL Albumin Lvl 3.7 g/dL 3.5 - 5.0 12/25/2013 [facility] CHEM PANEL Calcium Lvl 9.4 mg/dL 8.5 - 10.5 12/25/2013 [facility] CHEM PANEL Potassium Lvl 3.8 meq/L 3.5 - 5.1 12/25/2013 [facility] CHEM PANEL CO2 28 meq/L 24 - 32 12/25/2013 [facility] CHEM PANEL Chloride Lvl 100 meq/L 95 - 109 12/25/2013 [facility] CHEM PANEL eGFR 79 mL/min/1.73m2 12/25/2013 1Result Comment: The eGFR is calculated using the CKD-EPI formula. In most young, healthy individuals the eGFR will be >90 mL/min/1.73m2. The eGFR declines with age. An eGFR of 60-89 may be normal in some populations, particularly the elderly, for whom the CKD-EPI formula has not been extensively validated. Use of the eGFR is not recommended in the following populations: Individuals with unstable creatinine concentrations, including patients and those with serious co-morbid conditions. Patients with extremes in muscle mass or diet. The data above are obtained from the National Kidney Disease Education Program (NKDEP) which additionally recommends that when the eGFR is used in patients with extremes of body mass index for purposes of drug dosing, the eGFR should be multiplied by the estimated BMI. [facility] CHEM PANEL Sodium Lvl 134 meq/L 135 - 145 12/25/2013 [facility] CHEM PANEL Creatinine Lvl 0.9 mg/dL 0.5 - 1.4 12/25/2013 [facility] CHEM PANEL BUN 14 mg/dL 7 - 22 12/25/2013 [facility] CHEM PANEL Glucose Lvl 354 mg/dL 70 - 99 12/25/2013 2Interpretive Data: Adult reference range values reflect the clinical guidelines of the [place] [employer]. [facility] CHEM PANEL Amylase Lvl 12 unit/L 25 - 115 12/25/2013 [facility] ENDOCRINOLOGY S Preg Negative *NA* (12/25/13 4:30 AM) Negative 12/25/2013 [facility] HEMATOLOGY Lymphocytes 11.8 % 20.0 - 40.0 12/25/2013 [facility] HEMATOLOGY Eosinophils 2.2 % 0.0 - 4.0 12/25/2013 [facility] HEMATOLOGY Monocytes 7.2 % 2.0 - 12.0 12/25/2013 [facility] HEMATOLOGY Basophils 0.3 % 0.0 - 1.0 12/25/2013 [facility] HEMATOLOGY Segs-Bands # 8.0 K/CMM 1.5 - 8.1 12/25/2013 [facility] HEMATOLOGY Lymphocytes # 1.2 K/CMM 1.0 - 5.5 12/25/2013 [facility] HEMATOLOGY Monocytes # 0.7 K/CMM 0.0 - 0.8 12/25/2013 [facility] HEMATOLOGY Eosinophils # 0.2 K/CMM 0.0 - 0.5 12/25/2013 [facility] Segs 78.5 % 45.0 - 75.0 12/25/2013 [facility] WBC 10.1 K/CMM 3.7 - 10.4 12/25/2013 [facility] RBC 4.71 M/CMM 4.20 - 5.40 12/25/2013 [facility] Platelet 263 K/CMM 133 - 450 12/25/2013 [facility] MPV 10.1 fL 7.4 - 10.4 12/25/2013 [facility] MCH 28.7 pg 27.0 - 31.0 12/25/2013 [facility] RDW 13.4 % 11.5 - 14.5 12/25/2013 [facility] MCV 84.4 fL 81.0 - 99.0 12/25/2013 [facility] MCHC 34.1 g/dL 32.0 - 36.0 12/25/2013 [facility] Hct 39.8 % 36.0 - 48.0 12/25/2013 [facility] Hgb 13.6 g/dL 12.0 - 16.0 12/25/2013 [facility] IMMUNOLOGY CDC HIV 4th GEN Negative (12/25/13 4:30 AM) Negative 12/25/2013 [facility] BEDSIDE GLUCOSE TESTING Gluc POC Lifscn 74 mg/dL 70 - 99 11/12/2012 Normal 1Interpretive Data: Upper Reportable Limit: 200 mg/dL. [facility] CHEMISTRY Glucose Lvl 38 mg/dL 70 - 99 11/12/2012 CRIT 6Interpretive Data: Adult reference range values reflect the clinical guidelines of the [place] [employer]. [facility] BEDSIDE GLUCOSE TESTING Comment1 Assess patient 11/12/2012 NA [facility] BEDSIDE GLUCOSE TESTING Gluc POC Lifscn 49 mg/dL 70 - 99 11/12/2012 LOW 2Interpretive Data: Upper Reportable Limit: 200 mg/dL. [facility] BEDSIDE GLUCOSE TESTING Comment2 Verify w/ Lab 11/12/2012 NA [facility] BEDSIDE GLUCOSE TESTING Gluc POC Lifscn null 70 - 99 11/12/2012 CRIT 3Interpretive Data: Upper Reportable Limit: 200 mg/dL. [facility] BEDSIDE GLUCOSE TESTING Comment1 Notify RN/ 11/12/2012 NA [facility] BEDSIDE GLUCOSE TESTING Comment1 Notify RN/ 11/12/2012 [facility] CHEMISTRY Hgb A1C 8.1 % <=5.6 11/12/2012 [place] 9Interpretive Data: The reference range is based on the clinical practice guidelines of the [place] [employer] for diabetes screening; levels of 5.7%-6.4% are indicative of pre-diabetes. [facility] CHEMISTRY Troponin-I null 0.00 - 0.40 11/11/2012 Normal [facility] CHEMISTRY CK MB 0.9 ng/mL 0.5 - 3.6 11/11/2012 Normal [facility] CHEMISTRY pCO2 Yoshi 42 mm[Hg] 38 - 52 11/11/2012 Normal [facility] CHEMISTRY pO2 Yoshi 51 mm[Hg] 20 - 49 11/11/2012 [facility] CHEMISTRY BE Yoshi 2 mMol/L -2-2 - 2 11/11/2012 Normal [facility] CHEMISTRY HCO3 Yoshi 27 mMol/L 22 - 26 11/11/2012 [facility] CHEMISTRY O2 Sat Yoshi 86.1 % 40.0 - 70.0 11/11/2012 [facility] CHEMISTRY pH Yoshi 7.41 7.28 - 7.42 11/11/2012 Normal [facility] CHEMISTRY Temp Yoshi 37.0 Elaine 11/11/2012 [facility] CHEMISTRY Site Yoshi Vein (11/11/2012 14:50:00) 11/11/2012 Normal [facility] CHEMISTRY FiO2 Yoshi 21.0 11/11/2012 [facility] CHEMISTRY Allens Yoshi N/A (11/11/2012 14:50:00) 11/11/2012 Normal [facility] CHEMISTRY Phosphorus 1.4 mg/dL 2.5 - 4.5 11/11/2012 CRIT 8Result Comment: Critical Result(s) called to Hellen at 11/11/2012 15:26 byAE. Read back OK. [facility] CHEMISTRY Sodium Lvl 144 meq/L 135 - 145 11/11/2012 Normal [facility] CHEMISTRY Potassium Lvl 3.5 meq/L 3.5 - 5.1 11/11/2012 Normal [facility] CHEMISTRY Chloride Lvl 107 meq/L 95 - 109 11/11/2012 Normal [facility] CHEMISTRY eGFR 92 mL/min/1.73m2 11/11/2012 NA 4Result Comment: The eGFR is calculated using the CKD-EPI formula. In most young, healthy individuals the eGFR will be >90 mL/min/1.73m2. The eGFR declines with age. An eGFR of 60-89 may be normal in some populations, particularly the elderly, for whom the CKD-EPI formula has not been extensively validated. Use of the eGFR is not recommended in the following populations: Individuals with unstable creatinine concentrations, including patients and those with serious co-morbid conditions. Patients with extremes in muscle mass or diet. The data above are obtained from the National Kidney Disease Education Program (NKDEP) which additionally recommends that when the eGFR is used in patients with extremes of body mass index for purposes of drug dosing, the eGFR should be multiplied by the estimated BMI. [facility] CHEMISTRY AST 12 unit/L 0 - 37 11/11/2012 Normal [facility] CHEMISTRY Albumin Lvl 3.4 g/dL 3.5 - 5.0 11/11/2012 LOW [facility] CHEMISTRY Total Protein 7.2 g/dL 6.4 - 8.4 11/11/2012 Normal [facility] CHEMISTRY Calcium Lvl 8.4 mg/dL 8.5 - 10.5 11/11/2012 LOW [facility] CHEMISTRY Bili Total 0.2 mg/dL 0.2 - 1.3 11/11/2012 Normal [facility] CHEMISTRY Alk Phos 107 unit/L 39 - 136 11/11/2012 Normal [facility] CHEMISTRY ALT 23 unit/L 0 - 65 11/11/2012 Normal [facility] CHEMISTRY BUN 8 mg/dL 7 - 22 11/11/2012 Normal [facility] CHEMISTRY Creatinine Lvl 0.8 mg/dL 0.5 - 1.4 11/11/2012 Normal [facility] CHEMISTRY CO2 26 meq/L 24 - 32 11/11/2012 Normal [facility] CHEMISTRY Glucose Lvl 156 mg/dL 70 - 99 11/11/2012 [place] 7Interpretive Data: Adult reference range values reflect the clinical guidelines of the [place] [employer]. [facility] CHEMISTRY A/G Ratio 0.9 0.7 - 1.6 11/11/2012 Normal [facility] CHEMISTRY Globulin 3.8 g/dL 2.0 - 4.0 11/11/2012 Normal [facility] CHEMISTRY B/C Ratio 10 6 - 25 11/11/2012 Normal [facility] CHEMISTRY AGAP 14.5 meq/L 10.0 - 20.0 11/11/2012 Normal [facility] CHEMISTRY Magnesium Lvl 1.3 mg/dL 1.8 - 2.4 11/11/2012 LOW [facility] CHEMISTRY Ketone Quantitative 0.06 mmol/L <=0.27 11/11/2012 Normal [facility] CHEMISTRY S Preg Negative *NA* (11/11/2012 14:48:00) Negative 11/11/2012 NA [facility] HEMATOLOGY WBC 7.6 K/CMM 3.7 - 10.4 11/11/2012 Normal [facility] HEMATOLOGY Hgb 12.8 g/dL 12.0 - 16.0 11/11/2012 Normal [facility] HEMATOLOGY RBC 4.38 M/CMM 4.20 - 5.40 11/11/2012 Normal [facility] HEMATOLOGY MPV 9.5 fL 7.4 - 10.4 11/11/2012 Normal [facility] HEMATOLOGY RDW 13.0 % 11.5 - 14.5 11/11/2012 Normal [facility] HEMATOLOGY Platelet 270 K/CMM 133 - 450 11/11/2012 Normal [facility] HEMATOLOGY MCV 86.6 fL 81.0 - 99.0 11/11/2012 Normal [facility] HEMATOLOGY MCHC 33.6 g/dL 32.0 - 36.0 11/11/2012 Normal [facility] HEMATOLOGY MCH 29.1 pg 27.0 - 31.0 11/11/2012 Normal [facility] HEMATOLOGY Hct 38.0 % 36.0 - 48.0 11/11/2012 Normal [facility] HEMATOLOGY Eosinophils # 0.1 K/CMM 0.0 - 0.5 11/11/2012 Normal [facility] HEMATOLOGY Basophils # 0.0 K/CMM 0.0 - 0.2 11/11/2012 Normal [facility] HEMATOLOGY Monocytes # 0.6 K/CMM 0.0 - 0.8 11/11/2012 Normal [facility] HEMATOLOGY Lymphocytes # 1.4 K/CMM 1.0 - 5.5 11/11/2012 Normal [facility] HEMATOLOGY Basophils 0.5 % 0.0 - 1.0 11/11/2012 Normal [facility] HEMATOLOGY Segs-Bands # 5.5 K/CMM 1.5 - 8.1 11/11/2012 Normal [facility] HEMATOLOGY Monocytes 7.6 % 2.0 - 12.0 11/11/2012 Normal [facility] HEMATOLOGY Eosinophils 1.0 % 0.0 - 4.0 11/11/2012 Normal [facility] HEMATOLOGY Lymphocytes 18.2 % 20.0 - 40.0 11/11/2012 LOW [facility] HEMATOLOGY Segs 72.7 % 45.0 - 75.0 11/11/2012 Normal [facility] URINALYSIS UA Sq Epi Occasional /LPF *NA* (11/11/2012 14:48:00) Few 11/11/2012 NA [facility] URINALYSIS UA Leuk Est Negative (11/11/2012 14:48:00) Negative 11/11/2012 Normal [facility] URINALYSIS UA Bili Negative *NA* (11/11/2012 14:48:00) Negative 11/11/2012 NA [facility] URINALYSIS UA Blood Negative (11/11/2012 14:48:00) Negative 11/11/2012 Normal [facility] URINALYSIS UA Nitrite Negative (11/11/2012 14:48:00) Negative 11/11/2012 Normal [facility] URINALYSIS UA WBC 1 /HPF 0 - 5 11/11/2012 Normal [facility] URINALYSIS UA Color Ltyellow 11/11/2012 NA [facility] URINALYSIS UA Urobilinogen <=1.0 mg/dL
*NA*
(11/11/2012 14:48:00) <sup> </sup> 0.1 - 1.0 11/11/2012 NA [facility] URINALYSIS UA Turbidity Clear (11/11/2012 14:48:00) Clear 11/11/2012 Normal [facility] URINALYSIS UA pH 6.0 5.0 - 8.0 11/11/2012 Normal [facility] URINALYSIS UA Ketones Trace mg/dL *ABN* (11/11/2012 14:48:00) Negative 11/11/2012 ABN [facility] URINALYSIS UA Glucose 500 mg/dL *ABN* (11/11/2012 14:48:00) Negative 11/11/2012 ABN [facility] URINALYSIS UA Protein Negative mg/dL (11/11/2012 14:48:00) Negative 11/11/2012 Normal [facility] URINALYSIS UA Spec Grav 1.023 <=1.030 11/11/2012 Normal [facility] Chest 1view Chest 1view Portable chest: The cardiac silhouette and pulmonary vasculature are within normal limits. The lungs and pleural spaces are clear. There is no significant change compared to 12/20/2011. IMPRESSION: No acute radiographic abnormality in the chest. SL:13 11/11/2012 - - Read by: Bk Bishop Dictated Date/time: 11/11/12 15:26 Electronically Signed by: Bk Bishop MD 11/11/12 15:26 FINAL REPORT [facility] CHEMISTRY BUN 11 mg/dL 7 - 22 09/04/2012 Normal [facility] CHEMISTRY Glucose Lvl 232 mg/dL 70 - 99 09/04/2012 HI 3Interpretive Data: Adult reference range values reflect the clinical guidelines of the [place] [employer]. [facility] CHEMISTRY Creatinine Lvl 0.6 mg/dL 0.5 - 1.4 09/04/2012 Normal [facility] CHEMISTRY AST 16 unit/L 0 - 37 09/04/2012 Normal [facility] CHEMISTRY Bili Total 0.5 mg/dL 0.2 - 1.3 09/04/2012 Normal [facility] CHEMISTRY Total Protein 7.4 g/dL 6.4 - 8.4 09/04/2012 Normal [facility] CHEMISTRY ALT 26 unit/L 0 - 65 09/04/2012 Normal [facility] CHEMISTRY Albumin Lvl 3.6 g/dL 3.5 - 5.0 09/04/2012 Normal [facility] CHEMISTRY Calcium Lvl 8.1 mg/dL 8.5 - 10.5 09/04/2012 LOW [facility] CHEMISTRY Alk Phos 98 unit/L 39 - 136 09/04/2012 Normal [facility] CHEMISTRY CO2 24 meq/L 24 - 32 09/04/2012 Normal [facility] CHEMISTRY eGFR 114 mL/min/1.73m2 09/04/2012 NA 2Result Comment: The eGFR is calculated using the CKD-EPI formula. In most young, healthy individuals the eGFR will be >90 mL/min/1.73m2. The eGFR declines with age. An eGFR of 60-89 may be normal in some populations, particularly the elderly, for whom the CKD-EPI formula has not been extensively validated. Use of the eGFR is not recommended in the following populations: Individuals with unstable creatinine concentrations, including patients and those with serious co-morbid conditions. Patients with extremes in muscle mass or diet. The data above are obtained from the National Kidney Disease Education Program (NKDEP) which additionally recommends that when the eGFR is used in patients with extremes of body mass index for purposes of drug dosing, the eGFR should be multiplied by the estimated BMI. [facility] CHEMISTRY Potassium Lvl 4.2 meq/L 3.5 - 5.1 09/04/2012 Normal [facility] CHEMISTRY Chloride Lvl 107 meq/L 95 - 109 09/04/2012 Normal [facility] CHEMISTRY Sodium Lvl 138 meq/L 135 - 145 09/04/2012 Normal [facility] CHEMISTRY AGAP 11.2 meq/L 10.0 - 20.0 09/04/2012 Normal [facility] CHEMISTRY B/C Ratio 18 6 - 25 09/04/2012 Normal [facility] CHEMISTRY A/G Ratio 0.9 0.7 - 1.6 09/04/2012 Normal [facility] CHEMISTRY Globulin 3.8 g/dL 2.0 - 4.0 09/04/2012 Normal [facility] CHEMISTRY Lipase Lvl 69 unit/L 73 - 393 09/04/2012 LOW [facility] HEMATOLOGY MPV 10.3 fL 7.4 - 10.4 09/04/2012 Normal [facility] HEMATOLOGY Platelet 245 K/CMM 133 - 450 09/04/2012 Normal [facility] HEMATOLOGY RDW 12.8 % 11.5 - 14.5 09/04/2012 Normal [facility] HEMATOLOGY MCHC 33.5 g/dL 32.0 - 36.0 09/04/2012 Normal [facility] HEMATOLOGY MCH 29.3 pg 27.0 - 31.0 09/04/2012 Normal [facility] HEMATOLOGY MCV 87.4 fL 81.0 - 99.0 09/04/2012 Normal [facility] HEMATOLOGY Hct 38.7 % 36.0 - 48.0 09/04/2012 Normal [facility] HEMATOLOGY Hgb 12.9 g/dL 12.0 - 16.0 09/04/2012 Normal [facility] HEMATOLOGY RBC 4.43 M/CMM 4.20 - 5.40 09/04/2012 Normal [facility] HEMATOLOGY WBC 8.0 K/CMM 3.7 - 10.4 09/04/2012 Normal [facility] HEMATOLOGY Basophils # 0.0 K/CMM 0.0 - 0.2 09/04/2012 Normal [facility] HEMATOLOGY Monocytes # 0.5 K/CMM 0.0 - 0.8 09/04/2012 Normal [facility] HEMATOLOGY Lymphocytes # 1.0 K/CMM 1.0 - 5.5 09/04/2012 Normal [facility] HEMATOLOGY Segs-Bands # 5.6 K/CMM 1.5 - 8.1 09/04/2012 Normal [facility] HEMATOLOGY Basophils 0.3 % 0.0 - 1.0 09/04/2012 Normal [facility] HEMATOLOGY Eosinophils # 0.8 K/CMM 0.0 - 0.5 09/04/2012 HI [facility] HEMATOLOGY Eosinophils 10.4 % 0.0 - 4.0 09/04/2012 HI [facility] HEMATOLOGY Monocytes 6.6 % 2.0 - 12.0 09/04/2012 Normal [facility] HEMATOLOGY Lymphocytes 12.9 % 20.0 - 40.0 09/04/2012 LOW [facility] HEMATOLOGY Segs 69.8 % 45.0 - 75.0 09/04/2012 Normal [facility] Microbiology Culture: Urine 09/04/2012 [facility] CHEMISTRY U Preg Negative (09/04/2012 00:30:00) Negative 09/04/2012 Normal [facility] URINALYSIS UA Glucose Negative mg/dL *NA* (09/04/2012 00:30:00) Negative 09/04/2012 [facility] URINALYSIS UA Protein Negative mg/dL (09/04/2012 00:30:00) Negative 09/04/2012 Normal [facility] URINALYSIS UA Trans Epi 3 /LPF <=0 09/04/2012 [facility] URINALYSIS UA Blood Small *ABN* (09/04/2012 00:30:00) Negative 09/04/2012 ABN [facility] URINALYSIS UA Bili Negative *NA* (09/04/2012 00:30:00) Negative 09/04/2012 [facility] URINALYSIS UA Ketones Negative mg/dL *NA* (09/04/2012 00:30:00) Negative 09/04/2012 [facility] URINALYSIS UA Nitrite Negative (09/04/2012 00:30:00) Negative 09/04/2012 Normal [facility] URINALYSIS UA Urobilinogen 2.0 mg/dL 0.1 - 1.0 09/04/2012 [facility] URINALYSIS UA Leuk Est Small *ABN* (09/04/2012 00:30:00) Negative 09/04/2012 ABN [facility] URINALYSIS UA RBC 2 /HPF 0 - 2 09/04/2012 Normal [facility] URINALYSIS UA Sq Epi Occasional /LPF *NA* (09/04/2012 00:30:00) Few 09/04/2012 NA [facility] URINALYSIS UA [place] Yeast Few /HPF *ABN* (09/04/2012 00:30:00) None Seen 09/04/2012 ABN [facility] URINALYSIS UA WBC 22 /HPF 0 - 5 09/04/2012 HI [facility] URINALYSIS UA pH 7.0 5.0 - 8.0 09/04/2012 Normal [facility] URINALYSIS UA Spec Grav 1.011 <=1.030 09/04/2012 Normal [facility] URINALYSIS UA Color Yellow *NA* (09/04/2012 00:30:00) Yellow 09/04/2012 NA [facility] URINALYSIS UA Turbidity Clear (09/04/2012 00:30:00) Clear 09/04/2012 Normal [facility] BEDSIDE GLUCOSE TESTING Comment1 Notify PHOEBE/ 09/04/2012 NA [facility] BEDSIDE GLUCOSE TESTING Gluc POC Lifscn 159 mg/dL 70 - 99 09/04/2012 HI 1Interpretive Data: Upper Reportable Limit: 200 mg/dL. [facility] BEDSIDE GLUCOSE TESTING Comment1 Assess patient 12/23/2011 NA [facility] BEDSIDE GLUCOSE TESTING Comment2 Notify PHOEBE/ 12/23/2011 NA [facility] BEDSIDE GLUCOSE TESTING Gluc POC Lifscn 107 mg/dL 70 - 99 12/23/2011 HI 2Interpretive Data: Upper Reportable Limit: 200 mg/dL. [facility] BEDSIDE GLUCOSE TESTING Comment2 Notify PHOEBE/ 12/23/2011 NA [facility] BEDSIDE GLUCOSE TESTING Comment1 Assess patient 12/23/2011 [facility] BEDSIDE GLUCOSE TESTING Gluc POC Lifscn 60 mg/dL 70 - 99 12/23/2011 LOW 3Interpretive Data: Upper Reportable Limit: 200 mg/dL. [facility] BEDSIDE GLUCOSE TESTING Comment2 Notify LEONCIO 12/23/2011 NA [facility] BEDSIDE GLUCOSE TESTING Comment1 Assess patient 12/23/2011 [facility] BEDSIDE GLUCOSE TESTING Gluc POC Lifscn 328 mg/dL 70 - 99 12/23/2011 HI 4Interpretive Data: Upper Reportable Limit: 200 mg/dL. [facility] CHEMISTRY Sodium Lvl 142 meq/L 135 - 145 12/23/2011 Normal [facility] CHEMISTRY BUN 8 mg/dL 7 - 12/23/2011 Normal [facility] CHEMISTRY Creatinine Lvl 0.7 mg/dL 0.5 - 1.4 12/23/2011 Normal [facility] CHEMISTRY AGAP 12.6 meq/L 10.0 - 20.0 12/23/2011 Normal [facility] CHEMISTRY CO2 27 meq/L 24 - 32 12/23/2011 Normal [facility] CHEMISTRY Calcium Lvl 8.1 mg/dL 8.5 - 10.5 12/23/2011 LOW [facility] CHEMISTRY Chloride Lvl 106 meq/L 95 - 109 12/23/2011 Normal [facility] CHEMISTRY Potassium Lvl 3.6 meq/L 3.5 - 5.1 12/23/2011 Normal [facility] CHEMISTRY Glucose Lvl 154 mg/dL 70 - 99 12/23/2011 HI 8Interpretive Data: Adult reference range values reflect the clinical guidelines of the [place] [employer]. [facility] HEMATOLOGY Eosinophils # 0.4 K/CMM 0.0 - 0.5 12/23/2011 Normal [facility] HEMATOLOGY Basophils # 0.0 K/CMM 0.0 - 0.2 12/23/2011 Normal [facility] HEMATOLOGY Monocytes # 0.6 K/CMM 0.0 - 0.8 12/23/2011 Normal [facility] HEMATOLOGY Lymphocytes # 2.7 K/CMM 1.0 - 5.5 12/23/2011 Normal [facility] HEMATOLOGY Segs 34.1 % 45.0 - 75.0 12/23/2011 LOW [facility] HEMATOLOGY Lymphocytes 48.1 % 20.0 - 40.0 12/23/2011 HI [facility] HEMATOLOGY Segs-Bands # 1.9 K/CMM 1.5 - 8.1 12/23/2011 Normal [facility] HEMATOLOGY Basophils 0.6 % 0.0 - 1.0 12/23/2011 Normal [facility] HEMATOLOGY Eosinophils 7.2 % 0.0 - 4.0 12/23/2011 HI [facility] HEMATOLOGY Monocytes 10.0 % 2.0 - 12.0 12/23/2011 Normal [facility] HEMATOLOGY MPV 9.5 fL 7.4 - 10.4 12/23/2011 Normal [facility] HEMATOLOGY Platelet 203 K/CMM 133 - 450 12/23/2011 Normal [facility] HEMATOLOGY RDW 13.4 % 11.5 - 14.5 12/23/2011 Normal [facility] HEMATOLOGY MCHC 33.9 g/dL 32.0 - 36.0 12/23/2011 Normal [facility] HEMATOLOGY MCV 87.3 fL 81.0 - 99.0 12/23/2011 Normal [facility] HEMATOLOGY Hct 32.3 % 36.0 - 48.0 12/23/2011 LOW [facility] HEMATOLOGY Hgb 11.0 g/dL 12.0 - 16.0 12/23/2011 LOW [facility] HEMATOLOGY RBC 3.71 M/CMM 4.20 - 5.40 12/23/2011 LOW [facility] HEMATOLOGY MCH 29.6 pg 27.0 - 31.0 12/23/2011 Normal [facility] HEMATOLOGY WBC 5.6 K/CMM 3.7 - 10.4 12/23/2011 Normal [facility] CHEMISTRY Phosphorus 2.9 mg/dL 2.5 - 4.5 12/22/2011 Normal [facility] CHEMISTRY Calcium Lvl 7.6 mg/dL 8.5 - 10.5 12/22/2011 LOW [facility] CHEMISTRY Creatinine Lvl 0.6 mg/dL 0.5 - 1.4 12/22/2011 Normal [facility] CHEMISTRY Glucose Lvl 399 mg/dL 70 - 99 12/22/2011 [place] 9Interpretive Data: Adult reference range values reflect the clinical guidelines of the [place] [employer]. [facility] CHEMISTRY AGAP 10.8 meq/L 10.0 - 20.0 12/22/2011 Normal [facility] CHEMISTRY CO2 22 meq/L 24 - 32 12/22/2011 LOW [facility] CHEMISTRY Potassium Lvl 3.8 meq/L 3.5 - 5.1 12/22/2011 Normal [facility] CHEMISTRY Chloride Lvl 109 meq/L 95 - 109 12/22/2011 Normal [facility] CHEMISTRY BUN 6 mg/dL 7 - 22 12/22/2011 LOW [facility] CHEMISTRY Sodium Lvl 138 meq/L 135 - 145 12/22/2011 Normal [facility] CHEMISTRY Ketone Quantitative 0.11 mmol/L <=0.27 12/21/2011 Normal [facility] CHEMISTRY Osmolality 301 mOsm/kg 280 - 300 12/21/2011 [facility] CHEMISTRY AGAP 11.9 meq/L 10.0 - 20.0 12/21/2011 Normal [facility] CHEMISTRY Calcium Lvl 7.7 mg/dL 8.5 - 10.5 12/21/2011 LOW [facility] CHEMISTRY CO2 21 meq/L 24 - 32 12/21/2011 LOW [facility] CHEMISTRY Chloride Lvl 116 meq/L 95 - 109 12/21/2011 [facility] CHEMISTRY eGFR null 12/21/2011 NA 5Result Comment: Expected eGFR for >20 yr. age group: >=60 ml/min/1.73 sq m The eGFR calculation is not valid in or for persons < 18 years of age. From National Kid[employer] Disease Education Program (NKDEP) [facility] CHEMISTRY Creatinine Lvl 0.8 mg/dL 0.5 - 1.4 12/21/2011 Normal [facility] CHEMISTRY Potassium Lvl 3.9 meq/L 3.5 - 5.1 12/21/2011 Normal [facility] CHEMISTRY Sodium Lvl 145 meq/L 135 - 145 12/21/2011 Normal [facility] CHEMISTRY Glucose Lvl 162 mg/dL 70 - 99 12/21/2011 HI 10Interpretive Data: Adult reference range values reflect the clinical guidelines of the [place] [employer]. [facility] CHEMISTRY BUN 2 mg/dL 7 - 12/21/2011 LOW [facility] CHEMISTRY Phosphorus 0.9 mg/dL 2.5 - 4.5 12/21/2011 CRIT 11Result Comment: Critical Result(s) called to charu at 12/21/2011 12:49:26 CDT byshikha. Read back OK. [facility] CHEMISTRY eGFR null 12/21/2011 NA 6Result Comment: Expected eGFR for >20 yr. age group: >=60 ml/min/1.73 sq m The eGFR calculation is not valid in or for persons < 18 years of age. From National Kid[employer] Education Program (NKDEP) [facility] CHEMISTRY Osmolality 302 mOsm/kg 280 - 300 12/21/2011 HI [facility] CHEMISTRY Osmolality 279 mOsm/kg 280 - 300 12/21/2011 LOW [facility] CHEMISTRY eGFR null 12/21/2011 NA 7Result Comment: Expected eGFR for >20 yr. age group: >=60 ml/min/1.73 sq m The eGFR calculation is not valid in or for persons < 18 years of age. From National Kid[employer] Education Program (NKDEP) [facility] CHEMISTRY Ketone Quantitative 0.07 mmol/L <=0.27 12/21/2011 Normal [facility] CHEMISTRY Phosphorus 0.9 mg/dL 2.5 - 4.5 12/21/2011 CRIT 12Result Comment: Critical Result(s) called to lori at 12/21/2011 02:11:45 CDT by natalia. Read back OK. [facility] CHEMISTRY Allens Yoshi N/A (12/21/2011 00:37:00) 12/21/2011 Normal [facility] Yoshi Vein (12/21/2011 00:37:00) 12/21/2011 Normal [facility] CHEMISTRY Temp Yoshi 37.0 Elaine 12/21/2011 NA [facility] CHEMISTRY pCO2 Yoshi 36 mm[Hg] 38 - 52 12/21/2011 LOW [facility] CHEMISTRY pH Yoshi 7.30 7.28 - 7.42 12/21/2011 Normal [facility] CHEMISTRY HCO3 Yoshi 18 mMol/L 22 - 26 12/21/2011 LOW [facility] CHEMISTRY BE Yoshi -8 mMol/L -2-2 - 2 12/21/2011 LOW [facility] CHEMISTRY pO2 Yoshi 35 mm[Hg] 20 - 49 12/21/2011 Normal [facility] CHEMISTRY O2 Sat Yoshi 75.4 % 40.0 - 70.0 12/21/2011 HI [facility] CHEMISTRY Ketone Quantitative 0.90 mmol/L <=0.27 12/21/2011 [facility] BACTERIAL - SEROLOGY MRSA by PCR Negative 1 (12/20/2011 20:20:00) 12/21/2011 Normal 1Interpretive Data: INTERPRETATION: Negative......No MRSA DNA detected by PCR Positive......MRSA DNA detected by PCR ASSAY LIMITATIONS: This is a screening test for colonization by MRSA. A positive test result indicates the patient is colonized by MRSA, but does not necessarily mean that an infection is present or that treatment is necessary. Likewise, a negative test does not exclude colonization or infection. Patients should be evaluated clinically for symptoms and signs of infection before making therapeutic decisions. Routine decolonization is discouraged and should only be considered for select patients after consultation with an infectious diseases specialist. [facility] O2 Sat Yoshi 45.9 % 40.0 - 70.0 12/20/2011 Normal [facility] CHEMISTRY FiO2 Yoshi 21.0 12/20/2011 NA [facility] Site Yoshi Vein (12/20/2011 18:00:00) 12/20/2011 Normal [facility] CHEMISTRY [place]ens Yoshi N/A (12/20/2011 18:00:00) 12/20/2011 Normal [facility] CHEMISTRY Temp Yoshi 37.0 Elaine 12/20/2011 NA [facility] CHEMISTRY HCO3 Yoshi 17 mMol/L 22 - 26 12/20/2011 LOW [facility] CHEMISTRY BE Yoshi -8 mMol/L -2-2 - 2 12/20/2011 LOW [facility] CHEMISTRY pH Yoshi 7.27 7.28 - 7.42 12/20/2011 LOW [facility] CHEMISTRY pCO2 Yoshi 40 mm[Hg] 38 - 52 12/20/2011 Normal [facility] CHEMISTRY pO2 Yoshi 21 mm[Hg] 20 - 49 12/20/2011 Normal [facility] CHEMISTRY Hgb A1C 10.1 % 12/20/2011 NA 13Interpretive Data: HbA1C% eAG(mg/dL) Interpretation 6.0 126 Very good control 6.5 140 Very good control 7.0 154 Good Control 7.5 169 Good Control 8.0 183 Marginal Control, take action to lower 8.5 197 Marginal Control, take action to lower 9.0 212 Poor Control, take action to lower 9.5 226 Poor Control, take action to lower 10.0 240 Poor Control, take action to lower [facility] CHEMISTRY HCO3 Yoshi 11 mMol/L 22 - 26 12/20/2011 LOW [facility] CHEMISTRY pCO2 Yoshi 38 mm[Hg] 38 - 52 12/20/2011 Normal [facility] CHEMISTRY pO2 Yoshi 19 mm[Hg] 20 - 49 12/20/2011 LOW [facility] CHEMISTRY pH Yoshi 7.12 7.28 - 7.42 12/20/2011 CRIT 14Result Comment: Critical Result(s) called to Dr Restrepo at _12/20/2011 13:42:02 CDT by_Kalina Aceves RRT. Read back OK. [facility] CHEMISTRY [place]ens Yoshi N/A (12/20/2011 13:30:00) 12/20/2011 Normal [facility] CHEMISTRY FiO2 Yoshi 21.0 12/20/2011 NA [facility] CHEMISTRY Temp Yoshi 37.0 Elaine 12/20/2011 [facility] CHEMISTRY O2 Sat Yoshi 32.2 % 40.0 - 70.0 12/20/2011 LOW [facility] CHEMISTRY Site Yoshi Vein (12/20/2011 13:30:00) 12/20/2011 Normal [facility] CHEMISTRY BE Yoshi -16 mMol/L -2-2 - 2 12/20/2011 LOW [facility] CHEMISTRY Lactic Acid Lvl 1.8 mMol/L 0.5 - 2.2 12/20/2011 Normal [facility] URINALYSIS UA Color Ltyellow 12/20/2011 NA [facility] URINALYSIS UA Urobilinogen <=1.0 mg/dL
*NA*
(12/20/2011 10:14:00) <sup> </sup> 0.1 - 1.0 12/20/2011 [facility] URINALYSIS UA Spec Grav 1.022 <=1.030 12/20/2011 Normal [facility] URINALYSIS UA Turbidity Clear (12/20/2011 10:14:00) Clear 12/20/2011 Normal [facility] URINALYSIS UA Sq Epi Occasional /LPF *NA* (12/20/2011 10:14:00) Few 12/20/2011 NA [facility] URINALYSIS UA WBC 1 /HPF 0 - 5 12/20/2011 Normal [facility] URINALYSIS UA Glucose 500 mg/dL *ABN* (12/20/2011 10:14:00) Negative 12/20/2011 ABN [facility] URINALYSIS UA Ketones 80 mg/dL *ABN* (12/20/2011 10:14:00) Negative 12/20/2011 ABN [facility] URINALYSIS UA Leuk Est Negative (12/20/2011 10:14:00) Negative 12/20/2011 Normal [facility] URINALYSIS UA Nitrite Negative (12/20/2011 10:14:00) Negative 12/20/2011 Normal [facility] URINALYSIS UA Blood Negative (12/20/2011 10:14:00) Negative 12/20/2011 Normal [facility] URINALYSIS UA Protein 30 mg/dL *ABN* (12/20/2011 10:14:00) Negative 12/20/2011 ABN [facility] URINALYSIS UA pH 5.0 5.0 - 8.0 12/20/2011 Normal [facility] URINALYSIS UA Bili Negative *NA* (12/20/2011 10:14:00) Negative 12/20/2011 NA [facility] CHEMISTRY FiO2 Yoshi 21.0 12/20/2011 [facility] CHEMISTRY Troponin-I null 0.00 - 0.40 12/20/2011 Normal [facility] CHEMISTRY Total CK 49 U/L 12 - 191 12/20/2011 Normal [facility] CHEMISTRY Amylase Lvl 6 U/L 25 - 115 12/20/2011 LOW [facility] CHEMISTRY Lipase Lvl 42 U/L 73 - 393 12/20/2011 LOW [facility] CHEMISTRY Globulin 4.7 g/dL 2.0 - 4.0 12/20/2011 [facility] CHEMISTRY A/G Ratio 0.9 0.7 - 1.6 12/20/2011 Normal [facility] CHEMISTRY B/C Ratio 15 6 - 25 12/20/2011 Normal [facility] CHEMISTRY Bili Total 0.4 mg/dL 0.2 - 1.3 12/20/2011 Normal [facility] CHEMISTRY ALT 25 U/L 0 - 65 12/20/2011 Normal [facility] CHEMISTRY Alk Phos 156 U/L 39 - 136 12/20/2011 [facility] CHEMISTRY AST 11 U/L 0 - 37 12/20/2011 Normal [facility] CHEMISTRY Albumin Lvl 4.4 g/dL 3.5 - 5.0 12/20/2011 Normal [facility] CHEMISTRY Total Protein 9.1 g/dL 6.4 - 8.4 12/20/2011 [facility] CHEMISTRY Magnesium Lvl 2.0 mg/dL 1.8 - 2.4 12/20/2011 Normal [facility] HEMATOLOGY MPV 10.4 fL 7.4 - 10.4 12/20/2011 Normal [facility] HEMATOLOGY Platelet 353 K/CMM 133 - 450 12/20/2011 Normal [facility] HEMATOLOGY RDW 13.0 % 11.5 - 14.5 12/20/2011 Normal [facility] HEMATOLOGY MCHC 34.5 g/dL 32.0 - 36.0 12/20/2011 Normal [facility] HEMATOLOGY MCH 30.1 pg 27.0 - 31.0 12/20/2011 Normal [facility] HEMATOLOGY Hgb 15.0 g/dL 12.0 - 16.0 12/20/2011 Normal [facility] HEMATOLOGY MCV 87.4 fL 81.0 - 99.0 12/20/2011 Normal [facility] HEMATOLOGY Hct 43.6 % 36.0 - 48.0 12/20/2011 Normal [facility] HEMATOLOGY RBC 4.99 M/CMM 4.20 - 5.40 12/20/2011 Normal [facility] HEMATOLOGY WBC 8.2 K/CMM 3.7 - 10.4 12/20/2011 Normal [facility] HEMATOLOGY Eosinophils # 0.0 K/CMM 0.0 - 0.5 12/20/2011 Normal [facility] HEMATOLOGY Basophils # 0.0 K/CMM 0.0 - 0.2 12/20/2011 Normal [facility] HEMATOLOGY Segs-Bands # 6.6 K/CMM 1.5 - 8.1 12/20/2011 Normal [facility] HEMATOLOGY Basophils 0.3 % 0.0 - 1.0 12/20/2011 Normal [facility] HEMATOLOGY Eosinophils 0.0 % 0.0 - 4.0 12/20/2011 Normal [facility] HEMATOLOGY Monocytes 4.4 % 2.0 - 12.0 12/20/2011 Normal [facility] HEMATOLOGY Monocytes # 0.4 K/CMM 0.0 - 0.8 12/20/2011 Normal [facility] HEMATOLOGY Lymphocytes # 1.2 K/CMM 1.0 - 5.5 12/20/2011 Normal [facility] HEMATOLOGY Segs 80.3 % 45.0 - 75.0 12/20/2011 [facility] HEMATOLOGY Lymphocytes 15.0 % 20.0 - 40.0 12/20/2011 LOW [facility] Vital Signs Vital Sign Value Date Comments Source Heart Rate 65 10/10/2017 [facility] Respitory Rate 18 10/10/2017 [facility] Systolic (mm Hg) 104 10/10/2017 [facility] Diastolic (mm Hg) 59 10/10/2017 [facility] Temperature Oral (F) 98.4 F 10/10/2017 [facility] Respitory Rate 17 10/10/2017 [facility] Systolic (mm Hg) 102 10/10/2017 [facility] Diastolic (mm Hg) 61 10/10/2017 [facility] Heart Rate 65 10/10/2017 [facility] Temperature Oral (F) 98.0 F 10/10/2017 [facility] Temperature Oral (F) 97.9 F 10/10/2017 [facility] Heart Rate 61 10/10/2017 [facility] Systolic (mm Hg) 114 10/10/2017 [facility] Diastolic (mm Hg) 60 10/10/2017 [facility] Respitory Rate 17 10/10/2017 [facility] Height 149.86 cm 10/09/2017 [facility] BMI Calculated 36.03 10/09/2017 [facility] Weight 80.909 10/09/2017 [facility] Temperature Oral (F) 98 F 04/11/2015 [facility] Systolic (mm Hg) 121 04/11/2015 [facility] Diastolic (mm Hg) 80 04/11/2015 [facility] Respitory Rate 18 04/11/2015 [facility] Heart Rate 65 04/11/2015 [facility] Weight 72.727 04/11/2015 [facility] BMI Calculated 28.4 04/11/2015 [facility] Height 160.02 cm 04/11/2015 [facility] Temperature Oral (F) 98.2 F 04/11/2015 [facility] Respitory Rate 18 04/11/2015 [facility] Heart Rate 70 04/11/2015 [facility] Systolic (mm Hg) 124 04/11/2015 [facility] Diastolic (mm Hg) 93 04/11/2015 [facility] Heart Rate 82 12/25/2013 [facility] Respitory Rate 16 12/25/2013 [facility] Diastolic (mm Hg) 62 12/25/2013 [facility] Systolic (mm Hg) 102 12/25/2013 [facility] Temperature Oral (F) 98.3 F 12/25/2013 [facility] Temperature Oral (F) 98.3 F 12/25/2013 [facility] Respitory Rate 18 12/25/2013 [facility] Heart Rate 74 12/25/2013 [facility] Diastolic (mm Hg) 71 12/25/2013 [facility] Systolic (mm Hg) 116 12/25/2013 [facility] Respitory Rate 16 12/25/2013 [facility] Heart Rate 70 12/25/2013 [facility] Diastolic (mm Hg) 68 12/25/2013 [facility] Systolic (mm Hg) 100 12/25/2013 [facility] Temperature Oral (F) 98.1 F 12/25/2013 [facility] Weight 68.182 12/25/2013 [facility] BMI Calculated 30.36 12/25/2013 [facility] Height 149.86 cm 12/25/2013 [facility] Respitory Rate 16 11/12/2012 [facility] Systolic (mm Hg) 92 11/12/2012 [facility] Diastolic (mm Hg) 57 11/12/2012 [facility] Temperature Oral (F) 98.4 F 11/12/2012 [facility] Heart Rate 71 11/12/2012 [facility] Heart Rate 70 11/12/2012 [facility] Systolic (mm Hg) 94 11/12/2012 [facility] Diastolic (mm Hg) 58 11/12/2012 [facility] Heart Rate 70 11/12/2012 [facility] Diastolic (mm Hg) 58 11/12/2012 [facility] Systolic (mm Hg) 94 11/12/2012 [facility] Temperature Oral (F) 97.8 F 11/12/2012 [facility] Respitory Rate 16 11/12/2012 [facility] Respitory Rate 18 11/12/2012 [facility] Temperature Oral (F) 98.1 F 11/12/2012 [facility] Weight 63.636 11/12/2012 [facility] Height 149.86 cm 11/12/2012 [facility] Weight 59.091 11/11/2012 [facility] Height 149.86 cm 11/11/2012 [facility] Weight 77.273 09/04/2012 [facility] Respitory Rate 16 12/23/2011 [facility] Temperature Oral (F) 98.7 F 12/23/2011 [facility] Heart Rate 102 12/23/2011 [facility] Systolic (mm Hg) 105 12/23/2011 [facility] Diastolic (mm Hg) 72 12/23/2011 [facility] Respitory Rate 17 12/23/2011 [facility] Systolic (mm Hg) 103 12/23/2011 [facility] Diastolic (mm Hg) 70 12/23/2011 [facility] Heart Rate 80 12/23/2011 [facility] Temperature Oral (F) 98.7 F 12/23/2011 [facility] Systolic (mm Hg) 103 12/23/2011 [facility] Diastolic (mm Hg) 68 12/23/2011 [facility] Respitory Rate 16 12/23/2011 [facility] Heart Rate 73 12/23/2011 [facility] Temperature Oral (F) 98.5 F 12/23/2011 [facility] Weight 60.000 12/21/2011 [facility] Height 149.86 cm 12/20/2011 [facility] Weight 59.091 12/20/2011 [facility] Encounters Location Location Details Encounter Type Encounter Number Reason For Visit Attending Provider ADM Date DC Date Status Source [facility] Inpatient [id number] DKA KONRADMARTINE AGUIAR 12/20/2011 12/23/2011 Active [facility] Outpatient [id number] ROUTINE SCREENING NANO LORENZANA 02/07/2012 02/07/2012 Active [facility] Emergency [id number] BRIAN RESTREPO 09/04/2012 09/04/2012 Active [facility] OU [id number] ELECTROLYTE DERANGEMENT;DM FERNANDO HENDRICKS 11/11/2012 11/12/[address] [facility] [id number] Vladislav Howell 12/25/2013 12/25/2013 [facility] [id number] Hailee Castellanos 04/11/2015 04/11/2015 [facility] Outpatient [id number] NANO LORENZANA 09/28/2016 Active [facility] Outpatient [id number] NANO LORENZANA 10/26/2016 Active [facility] Outpatient [id number] NANO LORENZANA 12/26/2016 Active [facility] [id number] Sarah Merrill 10/09/2017 10/10/2017 [facility] Outpatient [id number] SCREENING NANO LORENZANA Active [facility] Procedures Procedure Code Date Perfomer Comments Source section <sup>1</sup> [id number] 1c-section x 5 [facility] section<sup>1</sup> [id number] x 5 [facility] Tubal ligation [id number] [facility]
--- OUTSIDE RECORDS SUMMARY | 2018-03-23 13:26 | XMS REPORT | CCD ---
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
--- OUTSIDE RECORDS SUMMARY | 2018-03-23 13:26 | XMS REPORT | CCD ---
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 Medications Medication Instructions Start Date End Date Status Dextrose 50% in 50 mL, Route: IVP, Start date: 12/21/2011 12/23/2011 Discontinued Water IV 12/21/11 18:39:00, Duration: 30 day, Stop date: 01/20/12 18:38:00, PRN Blood Glucose Results NovoLog FlexPen 18 unit, 0.18 mL, Route: SUB-Q, 12/21/2011 12/23/2011 Discontinued Drug form: SOLN, Sliding Scale, PRN Blood Glucose Results, Start date: 12/21/11 18:39:00, Duration: 30 day, Stop date: 01/20/12 18:38:00 glucagon 1 mg, Route: IM, Drug form: 12/21/2011 12/23/2011 Discontinued PDR/INJ, PRN, PRN Blood Glucose Results, Start date: 12/21/11 18:39:00, Duration: 30 day, Stop date: 01/20/12 18:38:00 NovoLog FlexPen 15 unit, 0.15 mL, Route: SUB-Q, 12/21/2011 12/23/2011 Discontinued Drug form: SOLN, Sliding Scale, PRN Blood Glucose Results, Start date: 12/21/11 18:39:00, Duration: 30 day, Stop date: 01/20/12 18:38:00 NovoLog FlexPen 12 unit, 0.12 mL, Route: SUB-Q, 12/21/2011 12/23/2011 Discontinued Drug form: SOLN, Sliding Scale, PRN Blood Glucose Results, Start date: 12/21/11 18:39:00, Duration: 30 day, Stop date: 01/20/12 18:38:00 NovoLog FlexPen 9 unit, 0.09 mL, Route: SUB-Q, Drug 12/21/2011 12/23/2011 Discontinued form: SOLN, Sliding Scale, PRN Blood Glucose Results, Start date: 12/21/11 18:39:00, Duration: 30 day, Stop date: 01/20/12 18:38:00 Zofran 4 mg, 2 mL, Route: IVP, Drug form: 12/20/2011 12/23/2011 Discontinued INJ, Q6H, PRN as needed for nausea/vomiting, Start date: 12/20/11 14:50:00, Duration: 30 day, Stop date: 01/19/12 14:49:00 acetaminophen 500 mg, 1 tab, Route: PO, Drug 12/20/2011 12/23/2011 Discontinued form: TAB, Q6H, PRN Pain/Fever, Start date: 12/20/11 22:14:00, Duration: 30 day, Stop date: 01/19/12 22:13:00 potassium phosphate 7 mmol, 2.33 mL, Route: IVPB, PRN, 12/20/2011 12/21/2011 Completed + Sodium Chloride PRN Abnormal Lab Result, Start 0.9% IV 250 mL date: 12/20/11 9:27:00, Duration: 1 doses or times, Stop date: Limited # of times Dextrose 5% with 1,000 mL, Rate: 30 ml/hr, Infuse 12/22/2011 12/23/2011 Discontinued 0.45% NaCl IV 1,000 over: 33.3 hr, Route: IV, Dosing mL Weight 60 kg, Total Volume: 1,000, Start date: 12/22/11 21:45:00, Stop date: 01/21/12 21:44:00 [place] 2 tab, PO, PRN, PRN, heartburn, 12/20/2011 Ordered Heartburn Relief Substitution Allowed, Soft Stop NS + KCL 20mEq/L 1,000 mL, Rate: 200 ml/hr, Infuse 12/20/2011 12/21/2011 Discontinued 1000ml (Premix) over: 5 hr, Route: IV, Dosing 1,000 mL Weight 59.091 kg, Total Volume: 1,000, Start date: 12/20/11 8:46:00, Duration: 30 day, Stop date: 01/19/12 8:45:00 Tylenol Caplet Extra 1,000 mg, 2 tab, PO, Q4H, PRN, 120 12/20/2011 Ordered Strength 500 mg oral tab, headache, Substitution Allowed tablet potassium chloride 20 mEq, 100 mL, Route: IVPB, Drug 12/20/2011 12/23/2011 Discontinued form: INJ, PRN, PRN Abnormal Lab Result, Start date: 12/20/11 9:26:00, Duration: 3 doses or times, Stop date: Limited # of times Novolin N PenFill 15 unit, SUB-Q, BID, 3 ml, 12/20/2011 12/23/2011 Discontinued 100 units/mL Substitution Allowed, SUSP subcutaneous injection Saline Flush 0.9% 5 ml, Route: IVP, Drug Form: INJ, 12/20/2011 12/23/2011 Discontinued Q12H, Start date: 12/20/11 21:00:00, Duration: 30 day, Stop date: 01/19/12 9:00:00 Saline Flush 0.9% 5 ml, Route: IVP, Drug Form: INJ, 12/20/2011 12/23/2011 Discontinued PRN, PRN Line Flush, Start date: 12/20/11 13:12:00, Duration: 30 day, Stop date: 01/19/12 13:11:00 chlorhexidine 1 appl, Route: BATHE, Q24H, Start 12/20/2011 12/20/2011 Deleted topical 4% soap date: 12/20/11 14:00:00, Duration: 30 day, Stop date: 01/18/12 14:00:00 potassium phosphate 14 mmol, 4.67 mL, Route: IV, ONCE, 12/21/2011 12/21/2011 Completed + Sodium Chloride Start date: 12/21/11 2:28:00, Stop 0.9% IV 250 mL date: 12/21/11 2:28:00 Citrate of Magnesia 150 mL, Route: PO, Drug Form: LIQ, 12/21/2011 12/22/2011 Completed ONCALL, PRN Bowel Movements, Start date: 12/21/11 8:00:00, Duration: 1 doses or times, Stop date: 12/22/11 0:00:00 Sodium Chloride 0.9% 1,000 mL, Rate: 1,000 ml/hr, Infuse 12/20/2011 12/20/2011 Completed (Bolus) IV 1,000 mL over: 1 hr, Route: IV, Dosing Weight 59.091 kg, Total Volume: 1,000, Bolus dose, Priority: STAT, Start date: 12/20/11 8:12:00, Duration: 1 doses or times, Stop date: 12/20/11 9:11:00 Saline Flush 0.9% 5 ml, Route: IVP, Drug Form: INJ, 12/20/2011 12/20/2011 Discontinued PRN, PRN Line Flush, Start date: 12/20/11 8:12:00, Duration: 24 hr, Stop date: 12/21/11 8:11:00 Protonix 40 mg, 1 tab, Route: PO, Drug form: 12/20/2011 12/23/2011 Discontinued ECTAB, Daily, Start date: 12/20/11 16:30:00, Duration: 30 day, Stop date: 01/18/12 16:30:00 hydromorphone 1 mg, 1 mL, Route: IVP, Drug form: 12/20/2011 12/20/2011 Completed SOLN, ONCE, Priority: STAT, Start date: 12/20/11 8:12:00, Stop date: 12/20/11 8:12:00 ondansetron 4 mg, 2 mL, Route: IVP, Drug form: 12/20/2011 12/20/2011 Completed INJ, ONCE, Priority: STAT, Start date: 12/20/11 8:12:00, Stop date: 12/20/11 8:12:00 Reglan 10 mg, 2 mL, Route: IVP, Drug form: 12/20/2011 12/20/2011 Completed INJ, ONCE, Priority: STAT, Start date: 12/20/11 8:12:00, Stop date: 12/20/11 8:12:00 Colace 100 mg oral 100 mg, 1 cap, PO, Daily, 30 cap, 12/23/2011 Ordered capsule Substitution Allowed, CAP Protonix 40 mg oral 40 mg, 1 tab, PO, Daily, 60 tab, 12/23/2011 Ordered enteric coated Substitution Allowed, May tablet substitute to another PPI less costly., ECTAB May substitute to another PPI less costly. Humulin N 100 20 unit, 0.2 mL, SUB-Q, QAM, 1 12/23/2011 Ordered units/mL vial, Substitution Allowed, SUSP subcutaneous injection Humulin N 5 unit, 0.05 mL, Route: SUB-Q, Drug 12/22/2011 12/22/2011 Completed form: INJ, ONCE, Start date: 12/22/11 10:00:00, Stop date: 12/22/11 10:00:00 enoxaparin 40 mg, 0.4 mL, Route: SUB-Q, Drug 12/21/2011 12/23/2011 Discontinued form: INJ, [id number], Start date: 12/21/11 12:00:00, Duration: 30 day, Stop date: 01/19/12 12:00:00 potassium chloride 20 mEq, 100 mL, Route: IVPB, Drug 12/20/2011 12/21/2011 Completed form: INJ, PRN, PRN Abnormal Lab Result, Start date: 12/20/11 9:25:00, Duration: 2 doses or times, Stop date: Limited # of times Humulin N 20 unit, 0.2 mL, Route: SUB-Q, Drug 12/22/2011 12/22/2011 Discontinued form: INJ, QPM, Start date: 12/22/11 17:00:00, Duration: 30 day, Stop date: 01/20/12 17:00:00 NovoLog FlexPen 6 unit, 0.06 mL, Route: SUB-Q, Drug 12/21/2011 12/23/2011 Discontinued form: SOLN, Sliding Scale, PRN Blood Glucose Results, Start date: 12/21/11 18:39:00, Duration: 30 day, Stop date: 01/20/12 18:38:00 NovoLog FlexPen 3 unit, 0.03 mL, Route: SUB-Q, Drug 12/21/2011 12/23/2011 Discontinued form: SOLN, Sliding Scale, PRN Blood Glucose Results, Start date: 12/21/11 18:39:00, Duration: 30 day, Stop date: 01/20/12 18:38:00 potassium chloride 20 mEq, 100 mL, Route: IVPB, Drug 12/20/2011 12/20/2011 Completed form: INJ, PRN, PRN Abnormal Lab Result, Start date: 12/20/11 9:25:00, Duration: 1 doses or times, Stop date: Limited # of times Novolin R 100 unit + 99 mL, Rate: Titrate per DKA 12/20/2011 12/21/2011 Discontinued Sodium Chloride 0.9% protocol, Route: IV, Dosing Weight IV 99 mL 59.091 kg, Total Volume: 100, Start date: 12/20/11 9:25:00, Duration: 30 day, Stop date: 01/19/12 9:24:00 Novolin R PenFill per sliding scale, SUB-Q, 12/20/2011 Ordered 100 units/mL QID-Before Meals, Substitution injectable solution Allowed Humulin N 20 unit, 0.2 mL, Route: SUB-Q, Drug 12/23/2011 12/23/2011 Discontinued form: INJ, QAM, Start date: 12/23/11 9:00:00, Duration: 30 day, Stop date: 01/21/12 9:00:00 Humulin N 15 unit, 0.15 mL, Route: SUB-Q, 12/22/2011 12/22/2011 Discontinued Drug form: INJ, Daily, Start date: 12/22/11 17:00:00, Duration: 30 day, Stop date: 01/20/12 17:00:00 Sodium Chloride 1,000 mL, Rate: 100 ml/hr, Infuse 12/22/2011 12/22/2011 Discontinued 0.45% IV 1,000 mL over: 10 hr, Route: IV, Dosing Weight 60 kg, Total Volume: 1,000, Start date: 12/22/11 8:15:00, Duration: 30 day, Stop date: 01/21/12 8:14:00 magnesium citrate 150 ml, Route: PO, Drug Form: LIQ, 12/20/2011 12/21/2011 Completed ONCE, Start date: 12/20/11 16:52:00, Stop date: 12/20/11 16:52:00 Sodium Chloride 0.9% 1,000 mL, Rate: 500 ml/hr, Infuse 12/20/2011 12/20/2011 Completed IV 1,000 mL over: 2 hr, Route: IV, Dosing Weight 59.091 kg, Total Volume: 1,000, Start date: 12/20/11 9:23:00, Duration: 2 doses or times, Stop date: 12/20/11 13:22:00 Dextrose 50% in 50 mL, Route: IVP, Start date: 12/20/2011 12/23/2011 Discontinued Water IV 12/20/11 9:29:00, Duration: 30 day, Stop date: 01/19/12 9:28:00, PRN Blood Glucose Results Dextrose 50% in 25 mL, Route: IVP, Start date: 12/20/2011 12/23/2011 Discontinued Water IV 12/20/11 9:29:00, Duration: 30 day, Stop date: 01/19/12 9:28:00, PRN Blood Glucose Results D5W 1/2NS 1,000 mL 1,000 mL, Rate: 100 ml/hr, Infuse 12/20/2011 12/22/2011 Discontinued over: 10 hr, Route: IV, Dosing Weight 59.091 kg, Total Volume: 1,000, Start date: 12/20/11 14:00:00, Stop date: 01/19/12 13:59:00 Colace 100 mg oral 100 mg, 1 cap, Route: PO, Drug 12/21/2011 12/23/2011 Discontinued capsule form: CAP, Daily, Start date: 12/21/11 9:00:00, Duration: 30 day, Stop date: 01/19/12 9:00:00 potassium phosphate 14 mmol, 4.67 mL, Route: IVPB, PRN, 12/20/2011 12/20/2011 Completed + Sodium Chloride PRN Abnormal Lab Result, Start 0.9% IV 250 mL date: 12/20/11 9:28:00, Duration: 1 doses or times, Stop date: Limited # of times Humulin N 15 unit, 0.15 mL, Route: SUB-Q, 12/22/2011 12/22/2011 Discontinued Drug form: INJ, Breakfast, Start date: 12/22/11 8:00:00, Duration: 30 day, Stop date: 01/20/12 8:00:00 Vital Signs Most recent to oldest [Reference Range]: 1 2 3 Height 149.86 cm (12/20/2011 07:46:00) Current Weight 60.142 kg (12/23/2011 05:02:00) 62.784 kg (12/22/2011 05:00:00) 59.000 kg (12/20/2011 22:20:00) Temperature Oral [96.4-99.1 DegF] 98.7 DegF (12/23/2011 16:00:00) 98.7 DegF (12/23/2011 12:00:00) 98.5 DegF (12/23/2011 08:00:00) Systolic Blood Pressure [90-140 mmHg] 105 mmHg (12/23/2011 16:00:00) 103 mmHg (12/23/2011 12:00:00) 103 mmHg (12/23/2011 08:00:00) Diastolic Blood Pressure [60-90 mmHg] 72 mmHg (12/23/2011 16:00:00) 70 mmHg (12/23/2011 12:00:00) 68 mmHg (12/23/2011 08:00:00) Respiratory Rate [14-20 BRMIN] 16 BRMIN (12/23/2011 16:00:00) 17 BRMIN (12/23/2011 12:00:00) 16 BRMIN (12/23/2011 08:00:00) Peripheral Pulse Rate [60-100 bpm] 102 bpm *HI* (12/23/2011 16:00:00) 80 bpm (12/23/2011 12:00:00) 73 bpm (12/23/2011 08:00:00) Weight 60.000 kg (12/20/2011 21:09:00) 59.091 kg (12/20/2011 07:46:00) Results BACTERIAL - SEROLOGY Most recent to oldest [Reference Range]: 1 2 3 MRSA by PCR Negative 1 (12/20/2011 20:20:00) 1Interpretive Data: INTERPRETATION: Negative......No MRSA DNA detected [...] after consultation with an infectious diseases specialist. BEDSIDE GLUCOSE TESTING Most recent to oldest [Reference Range]: 1 2 3 Gluc POC Lifscn [70-99 mg/dL] 107 mg/dL 2 *HI* (12/23/2011 16:32:00) 60 mg/dL 3 *LOW* (12/23/2011 15:43:00) 328 mg/dL 4 *HI* (12/23/2011 11:43:00) Comment1 Assess patient *NA* (12/23/2011 16:32:00) Assess patient *NA* (12/23/2011 15:43:00) Assess patient *NA* (12/23/2011 11:43:00) Comment2 Notify RN/MD *NA* (12/23/2011 16:32:00) Notify RN/MD *NA* (12/23/2011 15:43:00) Notify RN/MD *NA* (12/23/2011 11:43:00) 2Interpretive Data: Upper Reportable Limit: 200 mg/dL. 3Interpretive Data: Upper Reportable Limit: 200 mg/dL. 4Interpretive Data: Upper Reportable Limit: 200 mg/dL. URINALYSIS Most recent to oldest [Reference Range]: 1 2 3 UA Turbidity [Clear] Clear (12/20/2011 10:14:00) UA Color Ltyellow *NA* (12/20/2011 10:14:00) UA pH [5.0-8.0] 5.0 (12/20/2011 10:14:00) UA Spec Grav [<=1.030] 1.022 (12/20/2011 10:14:00) UA Glucose [Negative mg/dL] 500 mg/dL *ABN* (12/20/2011 10:14:00) UA Blood [Negative] Negative (12/20/2011 10:14:00) UA Ketones [Negative mg/dL] 80 mg/dL *ABN* (12/20/2011 10:14:00) UA Protein [Negative mg/dL] 30 mg/dL *ABN* (12/20/2011 10:14:00) UA Urobilinogen [0.1-1.0 mg/dL] <=1.0 mg/dL *NA* (12/20/2011 10:14:00) UA Bili [Negative] Negative *NA* (12/20/2011 10:14:00) UA Leuk Est [Negative] Negative (12/20/2011 10:14:00) UA Nitrite [Negative] Negative (12/20/2011 10:14:00) UA WBC [0-5 /HPF] 1 /HPF (12/20/2011 10:14:00) UA Sq Epi [Few /LPF] Occasional /LPF *NA* (12/20/2011 10:14:00) CHEMISTRY Most recent to oldest [Reference Range]: 1 2 3 Sodium Lvl [135-145 mEq/L] 142 mEq/L (12/23/2011 04:07:00) 138 mEq/L (12/22/2011 05:42:00) 145 mEq/L (12/21/2011 15:49:00) Potassium Lvl [3.5-5.1 mEq/L] 3.6 mEq/L (12/23/2011 04:07:00) 3.8 mEq/L (12/22/2011 05:42:00) 3.9 mEq/L (12/21/2011 15:49:00) Chloride Lvl [95-109 mEq/L] 106 mEq/L (12/23/2011 04:07:00) 109 mEq/L (12/22/2011 05:42:00) 116 mEq/L *HI* (12/21/2011 15:49:00) CO2 [24-32 mEq/L] 27 mEq/L (12/23/2011 04:07:00) 22 mEq/L *LOW* (12/22/2011 05:42:00) 21 mEq/L *LOW* (12/21/2011 15:49:00) AGAP [10.0-20.0 mEq/L] 12.6 mEq/L (12/23/2011 04:07:00) 10.8 mEq/L (12/22/2011 05:42:00) 11.9 mEq/L (12/21/2011 15:49:00) Creatinine Lvl [0.5-1.4 mg/dL] 0.7 mg/dL (12/23/2011 04:07:00) 0.6 mg/dL (12/22/2011 05:42:00) 0.8 mg/dL (12/21/2011 15:49:00) eGFR >60 5 *NA* (12/21/2011 15:49:00) >60 6 *NA* (12/21/2011 12:11:00) >60 7 *NA* (12/21/2011 06:29:00) BUN [7-22 mg/dL] 8 mg/dL (12/23/2011 04:07:00) 6 mg/dL *LOW* (12/22/2011 05:42:00) 2 mg/dL *LOW* (12/21/2011 15:49:00) B/C Ratio [6-25] 15 (12/20/2011 08:11:00) Glucose Lvl [70-99 mg/dL] 154 mg/dL 8 *HI* (12/23/2011 04:07:00) 399 mg/dL 9 *HI* (12/22/2011 05:42:00) 162 mg/dL 10 *HI* (12/21/2011 15:49:00) Total Protein [6.4-8.4 g/dL] 9.1 g/dL *HI* (12/20/2011 08:11:00) Albumin Lvl [3.5-5.0 g/dL] 4.4 g/dL (12/20/2011 08:11:00) Globulin [2.0-4.0 g/dL] 4.7 g/dL *HI* (12/20/2011 08:11:00) A/G Ratio [0.7-1.6] 0.9 (12/20/2011 08:11:00) Calcium Lvl [8.5-10.5 mg/dL] 8.1 mg/dL *LOW* (12/23/2011 04:07:00) 7.6 mg/dL *LOW* (12/22/2011 05:42:00) 7.7 mg/dL *LOW* (12/21/2011 15:49:00) Phosphorus [2.5-4.5 mg/dL] 2.9 mg/dL (12/22/2011 05:42:00) 0.9 mg/dL 11 *CRIT* (12/21/2011 12:11:00) 0.9 mg/dL 12 *CRIT* (12/21/2011 01:05:00) Magnesium Lvl [1.8-2.4 mg/dL] 2.0 mg/dL (12/20/2011 08:11:00) ALT [0-65 U/L] 25 U/L (12/20/2011 08:11:00) AST [0-37 U/L] 11 U/L (12/20/2011 08:11:00) Alk Phos [39-136 U/L] 156 U/L *HI* (12/20/2011 08:11:00) Bili Total [0.2-1.3 mg/dL] 0.4 mg/dL (12/20/2011 08:11:00) Amylase Lvl [25-115 U/L] 6 U/L *LOW* (12/20/2011 08:11:00) Lipase Lvl [73-393 U/L] 42 U/L *LOW* (12/20/2011 08:11:00) Ketone Quantitative [<=0.27 mmol/L] 0.11 mmol/L (12/21/2011 15:49:00) 0.07 mmol/L (12/21/2011 03:31:00) 0.90 mmol/L *HI* (12/20/2011 23:35:00) Lactic Acid Lvl [0.5-2.2 mMol/L] 1.8 mMol/L (12/20/2011 11:56:00) Osmolality [280-300 mOsm/kg] 301 mOsm/kg *HI* (12/21/2011 15:49:00) 302 mOsm/kg *HI* (12/21/2011 12:11:00) 279 mOsm/kg *LOW* (12/21/2011 06:29:00) Total CK [12-191 U/L] 49 U/L (12/20/2011 08:11:00) Troponin-I [0.00-0.40 ng/mL] <0.02 ng/mL (12/20/2011 08:11:00) Hgb A1C 10.1 % 13 *NA* (12/20/2011 13:30:00) pH Yoshi [7.28-7.42] 7.30 (12/21/2011 00:37:00) 7.27 *LOW* (12/20/2011 18:00:00) 7.12 14 *CRIT* (12/20/2011 13:30:00) pCO2 Yoshi [38-52 mmHg] 36 mmHg *LOW* (12/21/2011 00:37:00) 40 mmHg (12/20/2011 18:00:00) 38 mmHg (12/20/2011 13:30:00) pO2 Yoshi [20-49 mmHg] 35 mmHg (12/21/2011 00:37:00) 21 mmHg (12/20/2011 18:00:00) 19 mmHg *LOW* (12/20/2011 13:30:00) HCO3 Yoshi [22-26 mMol/L] 18 mMol/L *LOW* (12/21/2011 00:37:00) 17 mMol/L *LOW* (12/20/2011 18:00:00) 11 mMol/L *LOW* (12/20/2011 13:30:00) BE Yoshi [-2-2 mMol/L] -8 mMol/L *LOW* (12/21/2011 00:37:00) -8 mMol/L *LOW* (12/20/2011 18:00:00) -16 mMol/L *LOW* (12/20/2011 13:30:00) O2 Sat Yoshi [40.0-70.0 %] 75.4 % *HI* (12/21/2011 00:37:00) 45.9 % (12/20/2011 18:00:00) 32.2 % *LOW* (12/20/2011 13:30:00) Site Yoshi Vein (12/21/2011 00:37:00) Vein (12/20/2011 18:00:00) Vein (12/20/2011 13:30:00) Allens Yoshi N/A (12/21/2011 00:37:00) N/A (12/20/2011 18:00:00) N/A (12/20/2011 13:30:00) FiO2 Yoshi 21.0 *NA* (12/20/2011 18:00:00) 21.0 *NA* (12/20/2011 13:30:00) 21.0 *NA* (12/20/2011 09:13:00) Temp Yoshi 37.0 DegC *NA* (12/21/2011 00:37:00) 37.0 DegC *NA* (12/20/2011 18:00:00) 37.0 DegC *NA* (12/20/2011 13:30:00) 5Result Comment: Expected eGFR for >20 yr. age group: >=60 ml/min/1.73 sq m The eGFR calculation is not valid in or for persons < 18 years of age. From [employer] Education [employer] (NKDEP) 6Result Comment: Expected eGFR for >20 yr. age group: >=60 ml/min/1.73 sq m The eGFR calculation is not valid in or for persons < 18 years of age. From [employer] Education [employer] (NKDEP) 7Result Comment: Expected eGFR for >20 yr. age group: >=60 ml/min/1.73 sq m The eGFR calculation is not valid in or for persons < 18 years of age. From [employer] (NKDEP) 8Interpretive Data: Adult reference range values reflect the clinical guidelines of the [place] [employer]. 9Interpretive Data: Adult reference range values reflect the clinical guidelines of the [place] [employer]. 10Interpretive Data: Adult reference range values reflect the clinical guidelines of the [place] [employer]. 11Result Comment: Critical Result(s) called to charu at 12/21/2011 12:49:26 CDT byshikha. Read back OK. 12Result Comment: Critical Result(s) called to lori at 12/21/2011 02:11:45 CDT by natalia. Read back OK. 13Interpretive Data: HbA1C% eAG(mg/dL) Interpretation 6.0 126 Very good control 6.5 140 Very good control 7.0 154 Good Control 7.5 169 Good Control 8.0 183 Marginal Control, take action to lower 8.5 197 Marginal Control, take action to lower 9.0 212 Poor Control, take action to lower 9.5 226 Poor Control, take action to lower 10.0 240 Poor Control, take action to lower 14Result Comment: Critical Result(s) called to Dr Savage at _12/20/2011 13:42:02 CDT by_Kalina Aceves RRT. Read back OK. HEMATOLOGY Most recent to oldest [Reference Range]: 1 2 3 WBC [3.7-10.4 K/CMM] 5.6 K/CMM (12/23/2011 04:07:00) 8.2 K/CMM (12/20/2011 08:11:00) RBC [4.20-5.40 M/CMM] 3.71 M/CMM *LOW* (12/23/2011 04:07:00) 4.99 M/CMM (12/20/2011 08:11:00) Hgb [12.0-16.0 g/dL] 11.0 g/dL *LOW* (12/23/2011 04:07:00) 15.0 g/dL (12/20/2011 08:11:00) Hct [36.0-48.0 %] 32.3 % *LOW* (12/23/2011 04:07:00) 43.6 % (12/20/2011 08:11:00) MCV [81.0-99.0 fL] 87.3 fL (12/23/2011 04:07:00) 87.4 fL (12/20/2011 08:11:00) MCH [27.0-31.0 pg] 29.6 pg (12/23/2011 04:07:00) 30.1 pg (12/20/2011 08:11:00) MCHC [32.0-36.0 g/dL] 33.9 g/dL (12/23/2011 04:07:00) 34.5 g/dL (12/20/2011 08:11:00) RDW [11.5-14.5 %] 13.4 % (12/23/2011 04:07:00) 13.0 % (12/20/2011 08:11:00) Platelet [133-450 K/CMM] 203 K/CMM (12/23/2011 04:07:00) 353 K/CMM (12/20/2011 08:11:00) MPV [7.4-10.4 fL] 9.5 fL (12/23/2011 04:07:00) 10.4 fL (12/20/2011 08:11:00) Segs [45.0-75.0 %] 34.1 % *LOW* (12/23/2011 04:07:00) 80.3 % *HI* (12/20/2011 08:11:00) Lymphocytes [20.0-40.0 %] 48.1 % *HI* (12/23/2011 04:07:00) 15.0 % *LOW* (12/20/2011 08:11:00) Monocytes [2.0-12.0 %] 10.0 % (12/23/2011 04:07:00) 4.4 % (12/20/2011 08:11:00) Eosinophils [0.0-4.0 %] 7.2 % *HI* (12/23/2011 04:07:00) 0.0 % (12/20/2011 08:11:00) Basophils [0.0-1.0 %] 0.6 % (12/23/2011 04:07:00) 0.3 % (12/20/2011 08:11:00) Segs-Bands # [1.5-8.1 K/CMM] 1.9 K/CMM (12/23/2011 04:07:00) 6.6 K/CMM (12/20/2011 08:11:00) Lymphocytes # [1.0-5.5 K/CMM] 2.7 K/CMM (12/23/2011 04:07:00) 1.2 K/CMM (12/20/2011 08:11:00) Monocytes # [0.0-0.8 K/CMM] 0.6 K/CMM (12/23/2011 04:07:00) 0.4 K/CMM (12/20/2011 08:11:00) Eosinophils # [0.0-0.5 K/CMM] 0.4 K/CMM (12/23/2011 04:07:00) 0.0 K/CMM (12/20/2011 08:11:00) Basophils # [0.0-0.2 K/CMM] 0.0 K/CMM (12/23/2011 04:07:00) 0.0 K/CMM (12/20/2011 08:11:00)
--- OUTSIDE RECORDS SUMMARY | 2018-03-23 13:26 | XMS REPORT | CCD ---
Author Author Auto Generated Organization [facility] Address Unknown Phone Unavailable Care Team Providers Care Director Hris Name Role Phone Stepan Savage CP Allergies, Adverse Reactions, Alerts Substance Reaction Status NKDA Active Problem List Condition Effective Dates Status Diabetes mellitus Active Diabetes mellitus type I Resolved Nausea Active Seizures due to metabolic disorder Active Medications Medication Instructions Start Date End Date Status ondansetron 4 mg, Route: PO, Drug form: TABDIS, 09/04/2012 09/04/2012 Discontinued ONCE, Dosing Weight 77.273, kg, Priority: STAT, Start date: 09/04/12 2:11:00, Stop date: 09/04/12 2:11:00 GI cocktail 30 ml, Route: PO, Drug Form: SUSP, 09/04/2012 09/04/2012 Completed Dosing Weight 77.273, kg, ONCE, Formulation #1: (Maalox 30ml - Viscous Lidocaine 10ml - Elixir 10ml), STAT, Start date: 09/04/12 2:11:00, Stop date: 09/04/12 2:11:00 Saline Flush 0.9% 5 mL, Route: IVP, Drug Form: INJ, 09/04/2012 09/04/2012 Discontinued Dosing Weight 77.273, kg, PRN, PRN Line Flush, Start date: 09/04/12 2:11:00, Duration: 24 hr, Stop date: 09/05/12 2:10:00 ondansetron 4 mg, Route: IVP, Drug form: INJ, 09/04/2012 09/04/2012 Completed ONCE, Dosing Weight 77.273, kg, Priority: STAT, Start date: 09/04/12 2:28:00, Stop date: 09/04/12 2:28:00 Ultram 50 mg oral 50 mg, 1 tab, PO, Q4H, PRN, 20 tab, 09/04/2012 Ordered tablet pain, Substitution Allowed Phenergan 25 mg oral 25 mg, 1 tab, PO, Q4H, PRN, 15 tab, 09/04/2012 Ordered tablet Nausea, Substitution Allowed Macrobid 100 mg oral 100 mg, 1 cap, PO, BID, 14 cap, 09/04/2012 Ordered capsule Substitution Allowed Vital Signs Most recent to oldest [Reference Range]: 1 Weight 77.273 kg (09/04/2012 00:28:00) Results BEDSIDE GLUCOSE TESTING Most recent to oldest [Reference Range]: 1 Gluc POC Lifscn [70-99 mg/dL] 159 mg/dL 1 *HI* (09/04/2012 00:27:00) Comment1 Notify RN/MD *NA* (09/04/2012 00:27:00) 1Interpretive Data: Upper Reportable Limit: 200 mg/dL. URINALYSIS Most recent to oldest [Reference Range]: 1 UA Turbidity [Clear] Clear (09/04/2012 00:30:00) UA Color [Yellow] Yellow *NA* (09/04/2012 00:30:00) UA pH [5.0-8.0] 7.0 (09/04/2012 00:30:00) UA Spec Grav [<=1.030] 1.011 (09/04/2012 00:30:00) UA Glucose [Negative mg/dL] Negative mg/dL *NA* (09/04/2012 00:30:00) UA Blood [Negative] Small *ABN* (09/04/2012 00:30:00) UA Ketones [Negative mg/dL] Negative mg/dL *NA* (09/04/2012 00:30:00) UA Protein [Negative mg/dL] Negative mg/dL (09/04/2012 00:30:00) UA Urobilinogen [0.1-1.0 mg/dL] 2.0 mg/dL *HI* (09/04/2012 00:30:00) UA Bili [Negative] Negative *NA* (09/04/2012 00:30:00) UA Leuk Est [Negative] Small *ABN* (09/04/2012 00:30:00) UA Nitrite [Negative] Negative (09/04/2012 00:30:00) UA WBC [0-5 /HPF] 22 /HPF *HI* (09/04/2012 00:30:00) UA RBC [0-2 /HPF] 2 /HPF (09/04/2012 00:30:00) UA Sq Epi [Few /LPF] Occasional /LPF *NA* (09/04/2012 00:30:00) UA [place] Yeast [None Seen /HPF] Few /HPF *ABN* (09/04/2012 00:30:00) UA Trans Epi [<=0 /LPF] 3 /LPF *HI* (09/04/2012 00:30:00) CHEMISTRY Most recent to oldest [Reference Range]: 1 Sodium Lvl [135-145 mEq/L] 138 mEq/L (09/04/2012 02:21:00) Potassium Lvl [3.5-5.1 mEq/L] 4.2 mEq/L (09/04/2012 02:21:00) Chloride Lvl [95-109 mEq/L] 107 mEq/L (09/04/2012 02:21:00) CO2 [24-32 mEq/L] 24 mEq/L (09/04/2012 02:21:00) AGAP [10.0-20.0 mEq/L] 11.2 mEq/L (09/04/2012 02:21:00) Creatinine Lvl [0.5-1.4 mg/dL] 0.6 mg/dL (09/04/2012 02:21:00) eGFR 114 mL/min/1.73m2 2 *NA* (09/04/2012 02:21:00) BUN [7-22 mg/dL] 11 mg/dL (09/04/2012 02:21:00) B/C Ratio [6-25] 18 (09/04/2012 02:21:00) Glucose Lvl [70-99 mg/dL] 232 mg/dL 3 *HI* (09/04/2012 02:21:00) Total Protein [6.4-8.4 g/dL] 7.4 g/dL (09/04/2012 02:21:00) Albumin Lvl [3.5-5.0 g/dL] 3.6 g/dL (09/04/2012 02:21:00) Globulin [2.0-4.0 g/dL] 3.8 g/dL (09/04/2012 02:21:00) A/G Ratio [0.7-1.6] 0.9 (09/04/2012 02:21:00) Calcium Lvl [8.5-10.5 mg/dL] 8.1 mg/dL *LOW* (09/04/2012 02:21:00) ALT [0-65 unit/L] 26 unit/L (09/04/2012 02:21:00) AST [0-37 unit/L] 16 unit/L (09/04/2012 02:21:00) Alk Phos [39-136 unit/L] 98 unit/L (09/04/2012 02:21:00) Bili Total [0.2-1.3 mg/dL] 0.5 mg/dL (09/04/2012 02:21:00) Lipase Lvl [73-393 unit/L] 69 unit/L *LOW* (09/04/2012 02:21:00) U Preg [Negative] Negative (09/04/2012 00:30:00) 2Result Comment: The eGFR is calculated using [...] from the National Kid[employer] Education Program ( NKDEP) which additionally recommends that when the eGFR is used in patients with extremes of body mass index for purposes of drug dosing, the eGFR should be mul tiplied by the estimated BMI. 3Interpretive Data: Adult reference range values reflect the clinical guidelines of the [place] [employer]. HEMATOLOGY Most recent to oldest [Reference Range]: 1 WBC [3.7-10.4 K/CMM] 8.0 K/CMM (09/04/2012 02:21:00) RBC [4.20-5.40 M/CMM] 4.43 M/CMM (09/04/2012 02:21:00) Hgb [12.0-16.0 g/dL] 12.9 g/dL (09/04/2012 02:21:00) Hct [36.0-48.0 %] 38.7 % (09/04/2012 02:21:00) MCV [81.0-99.0 fL] 87.4 fL (09/04/2012 02:21:00) MCH [27.0-31.0 pg] 29.3 pg (09/04/2012 02:21:00) MCHC [32.0-36.0 g/dL] 33.5 g/dL (09/04/2012 02:21:00) RDW [11.5-14.5 %] 12.8 % (09/04/2012 02:21:00) Platelet [133-450 K/CMM] 245 K/CMM (09/04/2012 02:21:00) MPV [7.4-10.4 fL] 10.3 fL (09/04/2012 02:21:00) Segs [45.0-75.0 %] 69.8 % (09/04/2012 02:21:00) Lymphocytes [20.0-40.0 %] 12.9 % *LOW* (09/04/2012 02:21:00) Monocytes [2.0-12.0 %] 6.6 % (09/04/2012 02:21:00) Eosinophils [0.0-4.0 %] 10.4 % *HI* (09/04/2012 02:21:00) Basophils [0.0-1.0 %] 0.3 % (09/04/2012 02:21:00) Segs-Bands # [1.5-8.1 K/CMM] 5.6 K/CMM (09/04/2012 02:21:00) Lymphocytes # [1.0-5.5 K/CMM] 1.0 K/CMM (09/04/2012 02:21:00) Monocytes # [0.0-0.8 K/CMM] 0.5 K/CMM (09/04/2012 02:21:00) Eosinophils # [0.0-0.5 K/CMM] 0.8 K/CMM *HI* (09/04/2012 02:21:00) Basophils # [0.0-0.2 K/CMM] 0.0 K/CMM (09/04/2012 02:21:00) Microbiology Reports PROCEDURE:Culture: Urine STATUS: Auth (Verified) BODY SITE: COLLECTED DATE/TIME: 09/04/2012 01:02:00 SOURCE: Urine, Clean Catch FREE TEXT SOURCE: FINAL REPORTS Final Report 10,000 - 50,000 CFU/mL Escherichia coli PRELIMINARY REPORTS Preliminary Report 10,000 - 50,000 CFU/mL Escherichia coli Susceptibility To Follow SUSCEPTIBILITY REPORT EC Antibiotic INTERP. VDIL Amikacin S Ampicillin R Ampicillin/Sulbactam R Cefazolin S Cefepime S Ceftriaxone S ESBL Confirmation - Gentamicin S Levofloxacin R Meropenem S Nitrofurantoin S Piperacillin/Tazobactam S Tetracycline S Tobramycin S Trimethoprim/Sulfamethoxazole S Procedures Procedures Date Related Diagnosis section 1 1c-section x 5
--- OUTSIDE RECORDS SUMMARY | 2018-03-23 13:26 | XMS REPORT | CCD ---
Author Author Auto Generated Organization [facility] Address Unknown Phone Unavailable Care Team Providers Care Band Singer Name Role Phone Yoel Oliver CP Allergies, Adverse Reactions, Alerts Substance Reaction Status NKDA Active Problem List Condition Effective Dates Status Anxiety depression Resolved Diabetes mellitus Active Diabetes mellitus type I Resolved Nausea Active Seizures due to metabolic disorder Active Medications Medication Instructions Start Date End Date Status Levemir FlexPen 30 unit, 0.3 mL, Route: SUB-Q, Drug 11/11/2012 11/11/2012 Completed form: INJ, ONCE, Dosing Weight 59.091, kg, Priority: NOW, Start date: 11/11/12 21:34:00, Stop date: 11/11/12 21:34:00 magnesium sulfate 2 gm, 50 mL, Route: IVPB, Drug 11/11/2012 11/11/2012 Completed form: INJ, ONCE, Dosing Weight 59.091, kg, Total dose=2 gm, Start date: 11/11/12 17:39:00, Duration: 1 doses or times, Stop date: 11/11/12 17:39:00 Saline Flush 0.9% 5 mL, Route: IVP, Drug Form: INJ, 11/11/2012 11/11/2012 Discontinued Dosing Weight 59.091, kg, PRN, PRN Line Flush, Start date: 11/11/12 14:25:00, Duration: 30 day, Stop date: 12/11/12 14:24:00 Dextrose 50% Syringe 12.5 gm, 25 mL, Route: IVP, Drug 11/11/2012 11/11/2012 Deleted Form: INJ, Dosing Weight 59.091, kg, PRN, PRN Blood Glucose Results, Start date: 11/11/12 14:25:00, Duration: 30 day, Stop date: 12/11/12 14:24:00, If Blood Glucose is 40 - 60 mg/dL. For patients that are Unconscious o... glucagon 1 mg, Route: IM, Drug form: 11/11/2012 11/11/2012 Deleted PDR/INJ, PRN, Dosing Weight 59.091, kg, PRN Blood Glucose Results, Start date: 11/11/12 14:25:00, Duration: 30 day, Stop date: 12/11/12 14:24:00, For BG < 60 mg/dL if no IV access and patient is either Unconscious or Unable... Dextrose 50% Syringe 25 gm, 50 mL, Route: IVP, Drug 11/11/2012 11/11/2012 Deleted Form: INJ, Dosing Weight 59.091, kg, PRN, PRN Blood Glucose Results, Start date: 11/11/12 14:25:00, Duration: 30 day, Stop date: 12/11/12 14:24:00, If Blood Glucose is < 40 mg/dL. For patients that are Unconscious or Vivi... temazepam 15 mg, 1 cap, Route: PO, Drug form: 11/11/2012 11/12/2012 Discontinued CAP, Bedtime, Dosing Weight 59.091, kg, Start date: 11/11/12 23:00:00, Duration: 30 day, Stop date: 12/11/12 21:00:00 [place] 7.5/325 oral 1 tab, Route: PO, Drug Form: TAB, 11/11/2012 11/12/2012 Discontinued tablet Dosing Weight 59.091, kg, Q6H, PRN Pain, Start date: 11/11/12 22:54:00, Duration: 30 day, Stop date: 12/11/12 22:53:00 ranitidine 150 mg 150 mg, 1 tab, Route: PO, Drug 11/12/2012 11/11/2012 Deleted oral tablet form: TAB, BID, Dosing Weight 59.091, kg, Start date: 11/12/12 9:00:00, Duration: 30 day, Stop date: 12/11/12 17:00:00 fluoxetine 10 mg, 1 cap, Route: PO, Drug form: 11/12/2012 11/12/2012 Discontinued CAP, Daily, Dosing Weight 59.091, kg, Start date: 11/12/12 9:00:00, Duration: 30 day, Stop date: 12/11/12 9:00:00 acetaminophen 1,000 mg, 2 tab, Route: PO, Drug 11/11/2012 11/12/2012 Discontinued form: TAB, Q4H, Dosing Weight 59.091, kg, PRN Headache, Start date: 11/11/12 22:53:00, Duration: 30 day, Stop date: 12/11/12 22:52:00 NovoLog PenFill 15 unit, 0.15 mL, Route: SUB-Q, 11/11/2012 11/11/2012 Completed Drug form: SOLN, ONCE, Dosing Weight 59.091, kg, Priority: NOW, Start date: 11/11/12 21:33:00, Stop date: 11/11/12 21:33:00 NS 1,000 mL 1,000 mL, Rate: 150 ml/hr, Infuse 11/11/2012 11/12/2012 Discontinued over: 6.7 hr, Route: IV, Dosing Weight 59.091 kg, Total Volume: 1,000, Start date: 11/11/12 14:57:00, Duration: 30 day, Stop date: 12/11/12 14:56:00 NS (Bolus) IV 1,000 1,000 mL, Rate: 1,000 ml/hr, Infuse 11/11/2012 11/11/2012 Completed mL over: 1 hr, Route: IV, Dosing Weight 59.091 kg, Total Volume: 1,000, Priority: STAT, Start date: 11/11/12 14:57:00, Duration: 1 doses or times, Stop date: 11/11/12 15:56:00, Bolus Dose Bolus Dose [place] 7.5/325 oral 1 tab, PO, Q6H, PRN, 40 tab, Pain, 11/12/2012 Ordered tablet Substitution Allowed, Maintenance, TAB NovoLog PenFill 15 unit, 0.15 mL, Route: SUB-Q, 11/12/2012 11/12/2012 Discontinued Drug form: SOLN, TID-Before Meals, Dosing Weight 59.091, kg, Start date: 11/12/12 7:30:00, Duration: 30 day, Stop date: 12/11/12 16:30:00 nitroglycerin 0.4 mg 0.4 mg, 1 tab, Route: SL, Drug 11/11/2012 11/12/2012 Discontinued sublingual tablet form: TAB, Q5Min, PRN Chest Pain, Start date: 11/11/12 21:01:00, Duration: 30 day, Stop date: 12/11/12 21:00:00 Levemir FlexPen 30 unit, 0.3 mL, Route: SUB-Q, Drug 11/12/2012 11/12/2012 Discontinued form: INJ, Q12H, Dosing Weight 59.091, kg, Start date: 11/12/12 9:00:00, Duration: 30 day, Stop date: 12/11/12 21:00:00 atropine 0.5 mg, 5 mL, Route: IVP, Drug 11/11/2012 11/12/2012 Discontinued form: INJ, PRN, PRN Bradycardia, Start date: 11/11/12 21:01:00, Duration: 30 day, Stop date: 12/11/12 21:00:00 sodium phosphate + 30 mmol, 10 mL, Route: IVPB, ONCE, 11/11/2012 11/11/2012 Completed Dextrose 5% in Water Dosing Weight 59.091, kg, Start IV 250 mL date: 11/11/12 15:29:00, Duration: 1 doses or times, Stop date: 11/11/12 15:29:00, For PO4=1.5 - 1.9 mg/dL; Administer when K level > 3.9mEq/L. For PO4=1.5 - 1.9 mg/dL; Administer when K level > 3.9mEq/L. insulin aspart 4 unit, 0.04 mL, Route: SUB-Q, Drug 11/11/2012 11/12/2012 Discontinued form: SOLN, TID-Before Meals, Dosing Weight 59.091, kg, PRN Blood Glucose Results, Start date: 11/11/12 20:48:00, Duration: 30 day, Stop date: 12/11/12 20:47:00 insulin aspart 2 unit, 0.02 mL, Route: SUB-Q, Drug 11/11/2012 11/12/2012 Discontinued form: SOLN, TID-Before Meals, Dosing Weight 59.091, kg, PRN Blood Glucose Results, Start date: 11/11/12 20:48:00, Duration: 30 day, Stop date: 12/11/12 20:47:00 insulin aspart 6 unit, 0.06 mL, Route: SUB-Q, Drug 11/11/2012 11/12/2012 Discontinued form: SOLN, TID-Before Meals, Dosing Weight 59.091, kg, PRN Blood Glucose Results, Start date: 11/11/12 20:48:00, Duration: 30 day, Stop date: 12/11/12 20:47:00 glucagon 1 mg, Route: IM, Drug form: 11/11/2012 11/12/2012 Discontinued PDR/INJ, PRN, Dosing Weight 59.091, kg, PRN Blood Glucose Results, Start date: 11/11/12 20:48:00, Duration: 30 day, Stop date: 12/11/12 20:47:00 Dextrose 50% Syringe 12.5 gm, 25 mL, Route: IVP, Drug 11/11/2012 11/12/2012 Discontinued Form: INJ, Dosing Weight 59.091, kg, PRN, PRN Blood Glucose Results, Start date: 11/11/12 20:48:00, Duration: 30 day, Stop date: 12/11/12 20:47:00 Dextrose 50% Syringe 25 gm, 50 mL, Route: IVP, Drug 11/11/2012 11/12/2012 Discontinued Form: INJ, Dosing Weight 59.091, kg, PRN, PRN Blood Glucose Results, Start date: 11/11/12 20:48:00, Duration: 30 day, Stop date: 12/11/12 20:47:00 insulin aspart 8 unit, 0.08 mL, Route: SUB-Q, Drug 11/11/2012 11/12/2012 Discontinued form: SOLN, TID-Before Meals, Dosing Weight 59.091, kg, PRN Blood Glucose Results, Start date: 11/11/12 20:48:00, Duration: 30 day, Stop date: 12/11/12 20:47:00 insulin aspart 10 unit, 0.1 mL, Route: SUB-Q, Drug 11/11/2012 11/12/2012 Discontinued form: SOLN, TID-Before Meals, Dosing Weight 59.091, kg, PRN Blood Glucose Results, Start date: 11/11/12 20:48:00, Duration: 30 day, Stop date: 12/11/12 20:47:00 fluoxetine 10 mg 10 mg, 1 cap, PO, Daily, 30 cap, 2, 11/12/2012 Ordered oral capsule 2, Substitution Allowed, CAP ondansetron 4 mg, Route: IVP, Drug form: INJ, 11/11/2012 11/11/2012 Completed ONCE, Dosing Weight 59.091, kg, Priority: STAT, Start date: 11/11/12 15:28:00, Stop date: 11/11/12 15:28:00 NovoLog PenFill 100 5 unit, SUB-Q, TID-Before Meals, 3 11/11/2012 Ordered units/mL mL, Substitution Allowed, SOLN subcutaneous solution ranitidine 150 mg 150 mg, 1 tab, PO, BID, PRN, 60 11/11/2012 Ordered oral tablet tab, heartburn, Substitution Allowed Lantus Solostar Pen 20 unit, SUB-Q, Bedtime, 10 ml, 11/11/2012 Ordered 100 units/mL Substitution Allowed, SOLN subcutaneous solution Lantus Solostar Pen 30 unit, SUB-Q, Daily, 10 ml, 11/11/2012 Ordered 100 units/mL Substitution Allowed, SOLN subcutaneous solution fluoxetine 10 mg 10 mg, 1 cap, PO, Daily, 60 cap, 11/11/2012 11/12/2012 Discontinued oral capsule Substitution Allowed, CAP Pepcid 20 mg, 1 tab, Route: PO, Drug form: 11/12/2012 11/12/2012 Discontinued TAB, BID, Start date: 11/12/12 9:00:00, Duration: 30 day, Stop date: 12/11/12 17:00:00 Vital Signs Most recent to oldest [Reference Range]: 1 2 3 Height 149.86 cm (11/11/2012 21:00:00) 149.86 cm (11/11/2012 13:43:00) Temperature Oral [96.4-99.1 DegF] 98.4 DegF (11/12/2012 12:00:00) 97.8 DegF (11/12/2012 08:00:00) 98.1 DegF (11/12/2012 04:21:00) Systolic Blood Pressure [90-140 mmHg] 92 mmHg (11/12/2012 12:00:00) 94 mmHg (11/12/2012 10:28:00) 94 mmHg (11/12/2012 10:26:00) Diastolic Blood Pressure [60-90 mmHg] 57 mmHg *LOW* (11/12/2012 12:00:00) 58 mmHg *LOW* (11/12/2012 10:28:00) 58 mmHg *LOW* (11/12/2012 10:26:00) Respiratory Rate [14-20 BRMIN] 16 BRMIN (11/12/2012 12:00:00) 16 BRMIN (11/12/2012 08:00:00) 18 BRMIN (11/12/2012 04:21:00) Peripheral Pulse Rate [60-100 bpm] 71 bpm (11/12/2012 12:00:00) 70 bpm (11/12/2012 10:28:00) 70 bpm (11/12/2012 10:26:00) Weight 63.636 kg (11/11/2012 21:00:00) 59.091 kg (11/11/2012 13:43:00) Results BEDSIDE GLUCOSE TESTING Most recent to oldest [Reference Range]: 1 2 3 Gluc POC Lifscn [70-99 mg/dL] 74 mg/dL 1 (11/12/2012 13:54:00) 49 mg/dL 2 *LOW* (11/12/2012 12:59:00) <40 mg/dL 3 *CRIT* (11/12/2012 12:39:00) Comment1 Assess patient *NA* (11/12/2012 12:59:00) Notify RN/MD *NA* (11/12/2012 12:01:00) Notify RN/MD *NA* (11/12/2012 07:19:00) Comment2 Verify w/ Lab *NA* (11/12/2012 12:59:00) 1Interpretive Data: Upper Reportable Limit: 200 mg/dL. 2Interpretive Data: Upper Reportable Limit: 200 mg/dL. 3Interpretive Data: Upper Reportable Limit: 200 mg/dL. URINALYSIS Most recent to oldest [Reference Range]: 1 2 3 UA Turbidity [Clear] Clear (11/11/2012 14:48:00) UA Color Ltyellow *NA* (11/11/2012 14:48:00) UA pH [5.0-8.0] 6.0 (11/11/2012 14:48:00) UA Spec Grav [<=1.030] 1.023 (11/11/2012 14:48:00) UA Glucose [Negative mg/dL] 500 mg/dL *ABN* (11/11/2012 14:48:00) UA Blood [Negative] Negative (11/11/2012 14:48:00) UA Ketones [Negative mg/dL] Trace mg/dL *ABN* (11/11/2012 14:48:00) UA Protein [Negative mg/dL] Negative mg/dL (11/11/2012 14:48:00) UA Urobilinogen [0.1-1.0 mg/dL] <=1.0 mg/dL *NA* (11/11/2012 14:48:00) UA Bili [Negative] Negative *NA* (11/11/2012 14:48:00) UA Leuk Est [Negative] Negative (11/11/2012 14:48:00) UA Nitrite [Negative] Negative (11/11/2012 14:48:00) UA WBC [0-5 /HPF] 1 /HPF (11/11/2012 14:48:00) UA Sq Epi [Few /LPF] Occasional /LPF *NA* (11/11/2012 14:48:00) CHEMISTRY Most recent to oldest [Reference Range]: 1 2 3 Sodium Lvl [135-145 mEq/L] 144 mEq/L (11/11/2012 14:48:00) Potassium Lvl [3.5-5.1 mEq/L] 3.5 mEq/L (11/11/2012:48:00) Chloride Lvl [95-109 mEq/L] 107 mEq/L (11/11/2012:48:00) CO2 [24-32 mEq/L] 26 mEq/L (11/11/2012:48:00) AGAP [10.0-20.0 mEq/L] 14.5 mEq/L (11/11/2012:48:00) Creatinine Lvl [0.5-1.4 mg/dL] 0.8 mg/dL (11/11/2012 14:48:00) eGFR 92 mL/min/1.73m2 4 *NA* (11/11/2012 14:48:00) BUN [7-22 mg/dL] 8 mg/dL (11/11/2012 14:48:00) B/C Ratio [6-25] 10 (11/11/2012 14:48:00) Glucose Lvl [70-99 mg/dL] 38 mg/dL 5, 6 *CRIT* (11/12/2012 13:03:00) 156 mg/dL 7 *HI* (11/11/2012 14:48:00) Total Protein [6.4-8.4 g/dL] 7.2 g/dL (11/11/2012 14:48:00) Albumin Lvl [3.5-5.0 g/dL] 3.4 g/dL *LOW* (11/11/2012:48:00) Globulin [2.0-4.0 g/dL] 3.8 g/dL (11/11/2012 14:48:00) A/G Ratio [0.7-1.6] 0.9 (11/11/2012 14:48:00) Calcium Lvl [8.5-10.5 mg/dL] 8.4 mg/dL *LOW* (11/11/2012 14:48:00) Phosphorus [2.5-4.5 mg/dL] 1.4 mg/dL 8 *CRIT* (11/11/2012 14:48:00) Magnesium Lvl [1.8-2.4 mg/dL] 1.3 mg/dL *LOW* (11/11/2012 14:48:00) ALT [0-65 unit/L] 23 unit/L (11/11/2012:48:00) AST [0-37 unit/L] 12 unit/L (11/11/2012 14:48:00) Alk Phos [39-136 unit/L] 107 unit/L (11/11/2012 14:48:00) Bili Total [0.2-1.3 mg/dL] 0.2 mg/dL (11/11/2012 14:48:00) Ketone Quantitative [<=0.27 mmol/L] 0.06 mmol/L (11/11/2012 14:48:00) CK MB [0.5-3.6 ng/mL] 0.9 ng/mL (11/11/2012 14:58:00) Troponin-I [0.00-0.40 ng/mL] <0.02 ng/mL (11/11/2012 14:58:00) Hgb A1C [<=5.6 %] 8.1 % 9 *HI* (11/11/2012 23:31:00) S Preg [Negative] Negative *NA* (11/11/2012 14:48:00) pH Yoshi [7.28-7.42] 7.41 (11/11/2012 14:50:00) pCO2 [place]oshi [38-52 mmHg] 42 mmHg (11/11/2012 14:50:00) pO2 [place] [20-49 mmHg] 51 mmHg *HI* (11/11/2012 14:50:00) HCO3 Yoshi [22-26 mMol/L] 27 mMol/L *HI* (11/11/2012 14:50:00) BE Yoshi [-2-2 mMol/L] 2 mMol/L (11/11/2012 14:50:00) O2 Sat Yoshi [40.0-70.0 %] 86.1 % *HI* (11/11/2012 14:50:00) Site Yoshi Vein (11/11/2012 14:50:00) Allens Yoshi N/A (11/11/2012 14:50:00) FiO2 Yoshi 21.0 *NA* (11/11/2012 14:50:00) Temp Yoshi 37.0 DegC *NA* (11/11/2012 14:50:00) 4Result Comment: The eGFR is calculated using [...] be mul tiplied by the estimated BMI. 5Result Comment: Critical Result(s) called to Ranjit Kumar at 11/12/2012 13:36 by hb. Read back OK. 6Interpretive Data: Adult reference range values reflect the clinical guidelines of the [place] [employer]. 7Interpretive Data: Adult reference range values reflect the clinical guidelines of the [place] [employer]. 8Result Comment: Critical Result(s) called to Hellen at 11/11/2012 15:26 byAE. Read back OK. 9Interpretive Data: The reference range is based on the clinical practice guidelines of the [place] [employer] for diabetes screening; levels of 5.7%-6.4% are indicative of pre-diabetes. HEMATOLOGY Most recent to oldest [Reference Range]: 1 2 3 WBC [3.7-10.4 K/CMM] 7.6 K/CMM (11/11/2012 14:48:00) RBC [4.20-5.40 M/CMM] 4.38 M/CMM (11/11/2012 14:48:00) Hgb [12.0-16.0 g/dL] 12.8 g/dL (11/11/2012 14:48:00) Hct [36.0-48.0 %] 38.0 % (11/11/2012 14:48:00) MCV [81.0-99.0 fL] 86.6 fL (11/11/2012 14:48:00) MCH [27.0-31.0 pg] 29.1 pg (11/11/2012 14:48:00) MCHC [32.0-36.0 g/dL] 33.6 g/dL (11/11/2012 14:48:00) RDW [11.5-14.5 %] 13.0 % (11/11/2012 14:48:00) Platelet [133-450 K/CMM] 270 K/CMM (11/11/2012 14:48:00) MPV [7.4-10.4 fL] 9.5 fL (11/11/2012 14:48:00) Segs [45.0-75.0 %] 72.7 % (11/11/2012 14:48:00) Lymphocytes [20.0-40.0 %] 18.2 % *LOW* (11/11/2012 14:48:00) Monocytes [2.0-12.0 %] 7.6 % (11/11/2012 14:48:00) Eosinophils [0.0-4.0 %] 1.0 % (11/11/2012 14:48:00) Basophils [0.0-1.0 %] 0.5 % (11/11/2012 14:48:00) Segs-Bands # [1.5-8.1 K/CMM] 5.5 K/CMM (11/11/2012 14:48:00) Lymphocytes # [1.0-5.5 K/CMM] 1.4 K/CMM (11/11/2012 14:48:00) Monocytes # [0.0-0.8 K/CMM] 0.6 K/CMM (11/11/2012 14:48:00) Eosinophils # [0.0-0.5 K/CMM] 0.1 K/CMM (11/11/2012 14:48:00) Basophils # [0.0-0.2 K/CMM] 0.0 K/CMM (11/11/2012 14:48:00)
--- OUTSIDE RECORDS SUMMARY | 2018-03-23 13:27 | XMS REPORT | Summary of Care ---
Author Organization Unknown Address Unknown Phone Unavailable Encounter [facility](JUWAN) [id number] Date(s): 12/25/13 - 12/25/13 [facility] [address] [address] Discharge Diagnosis: Gastritis Discharge Diagnosis: Acute gastroenteritis Discharge Disposition: Home Physician Attending: Vladislav Howell MD Reason for Visit DIARRHEA Vital Signs 1 2 3 Most recent to oldest [Reference Range]: 149.86 cm (12/25/13 2:29 AM) Height 98.3 DegF (12/25/13 1:14 PM) 98.3 DegF (12/25/13 12:00 PM) 98.1 DegF (12/25/13 8:00 AM) Temperature Oral [96.4-99.1 DegF] 102 mmHg (12/25/13 1:14 PM) 116 mmHg (12/25/13 12:00 PM) 100 mmHg (12/25/13 10:20 AM) Systolic Blood Pressure [90-140 mmHg] 62 mmHg (12/25/13 1:14 PM) 71 mmHg (12/25/13 12:00 PM) 68 mmHg (12/25/13 10:20 AM) Diastolic Blood Pressure [60-90 mmHg] 16 BRMIN (12/25/13 1:14 PM) 18 BRMIN (12/25/13 12:00 PM) 16 BRMIN (12/25/13 10:20 AM) Respiratory Rate [14-20 BRMIN] 82 bpm (12/25/13 1:14 PM) 74 bpm (12/25/13 12:00 PM) 70 bpm (12/25/13 10:20 AM) Peripheral Pulse Rate [60-100 bpm] 68.182 kg (12/25/13 2:29 AM) Weight 30.36 m2 (12/25/13 2:29 AM) Body Mass Index Problem List Condition Effective Dates Status Health Status Informant Anxiety Resolved depression(Confirmed ) Diabetes Active mellitus(Confirmed) Diabetes mellitus Resolved type I(Confirmed) Nausea(Confirmed) Active 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) Allergies, Adverse Reactions, Alerts Substance Reaction Severity Status NKDA Active Medications Cipro 500 mg oral tablet 500 mg=1 tab, PO, Q12H, # 6 tab, 0 Refill(s) Start Date: 12/25/13 Stop Date: 12/28/13 Status: Ordered GI cocktail 30 mL, Route: PO, Dosing Weight 68.182, kg, ONCE, STAT, Start date: 12/25/13 5:2 8:00, Stop date: 12/25/13 5:28:00 Start Date: 12/25/13 Stop Date: 12/25/13 Status: Completed morphine Sulfate 4 mg, Route: IVP, Drug form: INJ, ONCE, Dosing Weight 68.182, kg, Priority: STAT , Start date: 12/25/13 5:26:00, Stop date: 12/25/13 5:26:00 Start Date: 12/25/13 Stop Date: 12/25/13 Status: Completed NS (Bolus) IV 1,000 mL, 1,000 ml/hr, Infuse Over: 1 hr, Route: IV, 1,000, Drug form: INJ, ONCE , Priority: STAT, Dosing Weight 68.182 kg, Start date: 12/25/13 5:27:00, Duratio n: 1 doses or times, Stop date: 12/25/13 5:27:00 Start Date: 12/25/13 Stop Date: 12/25/13 Status: Completed NS (Bolus) IV 1,000 mL, 1,000 ml/hr, Infuse Over: 1 hr, Route: IV, ONCE, Priority: STAT, Dosin g Weight 68.182 kg, Start date: 12/25/13 5:27:00, Duration: 1 doses or times, St op date: 12/25/13 5:27:00 Start Date: 12/25/13 Stop Date: 12/25/13 Status: Completed Pepcid 20 mg, Route: IV, ONCE, Dosing Weight 68.182, kg, Start date: 12/25/13 5:26:00, Stop date: 12/25/13 5:26:00 Start Date: 12/25/13 Stop Date: 12/25/13 Status: Completed Pepcid 20 mg oral tablet 20 mg=1 tab, PO, BID, # 30 tab, 0 Refill(s) Start Date: 12/25/13 Status: Ordered Sodium Chloride 0.9% (Bolus) IV 1,000 mL, 1,000 ml/hr, Infuse Over: 1 hr, Route: IV, ONCE, Priority: STAT, Dosin g Weight 68.182 kg, Start date: 12/25/13 4:36:00, Duration: 1 doses or times, St op date: 12/25/13 4:36:00 Start Date: 12/25/13 Stop Date: 12/25/13 Status: Completed tramadol 50 mg oral tablet 50 mg=1 tab, PO, Q6H, Pain, # 10 tab, 0 Refill(s) Start Date: 12/25/13 Stop Date: 01/04/14 Status: Ordered Zofran 4 mg, Route: IVP, Drug form: INJ, ONCE, Dosing Weight 68.182, kg, Priority: STAT , Start date: 12/25/13 5:26:00, Stop date: 12/25/13 5:26:00 Start Date: 12/25/13 Stop Date: 12/25/13 Status: Completed Zofran 4 mg, Route: IVP, Drug form: INJ, ONCE, Dosing Weight 68.182, kg, Priority: STAT , Start date: 12/25/13 4:35:00, Stop date: 12/25/13 4:35:00 Start Date: 12/25/13 Stop Date: 12/25/13 Status: Completed Zofran ODT 4 mg oral tablet, disintegrating 4 mg=1 tab, PO, BID, Nausea and Vomiting, Dissolve tab under tongue, # 10 tab, 0 Refill(s) Special Instructions: Dissolve tab under tongue Start Date: 12/25/13 Status: Ordered Results ELECTROLYTES Most recent to 1 oldest [Reference Range]: Sodium Lvl [135-145 134 mEq/L mEq/L] *LOW* (12/25/13 4:30 AM) Potassium Lvl 3.8 mEq/L [3.5-5.1 mEq/L] (12/25/13 4:30 AM) Chloride Lvl [95-109 100 mEq/L mEq/L] (12/25/13 4:30 AM) CO2 [24-32 mEq/L] 28 mEq/L (12/25/13 4:30 AM) AGAP [10.0-20.0 9.8 mEq/L mEq/L] *LOW* (12/25/13 4:30 AM) CHEM PANEL Most recent to 1 oldest [Reference Range]: Creatinine Lvl 0.9 mg/dL [0.5-1.4 mg/dL] (12/25/13 4:30 AM) eGFR 79 mL/min/1.73m2 1 *NA* (12/25/13 4:30 AM) BUN [7-22 mg/dL] 14 mg/dL (12/25/13 4:30 AM) B/C Ratio [6-25] 16 (12/25/13 4:30 AM) Glucose Lvl [70-99 354 mg/dL 2 mg/dL] *HI* (12/25/13 4:30 AM) Total Protein 7.6 g/dL [6.4-8.4 g/dL] (12/25/13 4:30 AM) Albumin Lvl [3.5-5.0 3.7 g/dL g/dL] (12/25/13 4:30 AM) Globulin [2.0-4.0 3.9 g/dL g/dL] (12/25/13 4:30 AM) A/G Ratio [0.7-1.6] 0.9 (12/25/13 4:30 AM) Calcium Lvl 9.4 mg/dL [8.5-10.5 mg/dL] (12/25/13 4:30 AM) ALT [0-65 unit/L] 19 unit/L (12/25/13 4:30 AM) AST [0-37 unit/L] 12 unit/L (12/25/13 4:30 AM) Alk Phos [39-136 129 unit/L unit/L] (12/25/13 4:30 AM) Bili Total [0.2-1.3 0.6 mg/dL mg/dL] (12/25/13 4:30 AM) Amylase Lvl [25-115 12 unit/L unit/L] *LOW* (12/25/13 4:30 AM) Lipase Lvl [73-393 53 unit/L unit/L] *LOW* (12/25/13 4:30 AM) 1Result Comment: The eGFR is calculated using [...] be mul tiplied by the estimated BMI. 2Interpretive Data: Adult reference range values reflect the clinical guidelines of the [place] [employer]. ENDOCRINOLOGY Most recent to 1 oldest [Reference Range]: S Preg [Negative] Negative *NA* (12/25/13 4:30 AM) URINE CHEM Most recent to 1 oldest [Reference Range]: U Preg [Negative] Negative (12/25/13 7:41 AM) URINE AND STOOL Most recent to 1 oldest [Reference Range]: UA Turbidity [Clear] Clear (12/25/13 7:41 AM) UA Color Colorless *NA* (12/25/13 7:41 AM) UA pH [5.0-8.0] 6.0 (12/25/13 7:41 AM) UA Spec Grav 1.015 [<=1.030] (12/25/13 7:41 AM) UA Glucose [Negative 500 mg/dL mg/dL] *ABN* (12/25/13 7:41 AM) UA Blood [Negative] Negative (12/25/13 7:41 AM) UA Ketones [Negative Trace mg/dL mg/dL] *ABN* (12/25/13 7:41 AM) UA Protein [Negative Negative mg/dL mg/dL] (12/25/13 7:41 AM) UA Urobilinogen <=1.0 mg/dL [0.1-1.0 mg/dL] *NA* (12/25/13 7:41 AM) UA Bili [Negative] Negative *NA* (12/25/13 7:41 AM) UA Leuk Est Negative [Negative] (12/25/13 7:41 AM) UA Nitrite Negative [Negative] (12/25/13 7:41 AM) UA WBC [0-5 /HPF] 1 /HPF (12/25/13 7:41 AM) UA RBC [0-2 /HPF] 1 /HPF (12/25/13 7:41 AM) UA Bacteria [None Occasional /HPF Seen /HPF] *NA* (12/25/13 7:41 AM) UA Sq Epi [Few /LPF] Occasional /LPF *NA* (12/25/13 7:41 AM) Fecal Leukocyte Few 3 (12/25/13 8:00 AM) 3Interpretive Data: A Value of None Seen, Rare, or Few is Normal. IMMUNOLOGY Most recent to 1 oldest [Reference Range]: CDC HIV 4th GEN Negative [Negative] (12/25/13 4:30 AM) HEMATOLOGY Most recent to 1 oldest [Reference Range]: WBC [3.7-10.4 K/CMM] 10.1 K/CMM (12/25/13 4:30 AM) RBC [4.20-5.40 4.71 M/CMM M/CMM] (12/25/13 4:30 AM) Hgb [12.0-16.0 g/dL] 13.6 g/dL (12/25/13 4:30 AM) Hct [36.0-48.0 %] 39.8 % (12/25/13 4:30 AM) MCV [81.0-99.0 fL] 84.4 fL (12/25/13 4:30 AM) MCH [27.0-31.0 pg] 28.7 pg (12/25/13 4:30 AM) MCHC [32.0-36.0 34.1 g/dL g/dL] (12/25/13 4:30 AM) RDW [11.5-14.5 %] 13.4 % (12/25/13 4:30 AM) Platelet [133-450 263 K/CMM K/CMM] (12/25/13 4:30 AM) MPV [7.4-10.4 fL] 10.1 fL (12/25/13 4:30 AM) Segs [45.0-75.0 %] 78.5 % *HI* (12/25/13 4:30 AM) Lymphocytes 11.8 % [20.0-40.0 %] *LOW* (12/25/13 4:30 AM) Monocytes [2.0-12.0 7.2 % %] (12/25/13 4:30 AM) Eosinophils [0.0-4.0 2.2 % %] (12/25/13 4:30 AM) Basophils [0.0-1.0 0.3 % %] (12/25/13 4:30 AM) Segs-Bands # 8.0 K/CMM [1.5-8.1 K/CMM] (12/25/13 4:30 AM) Lymphocytes # 1.2 K/CMM [1.0-5.5 K/CMM] (12/25/13 4:30 AM) Monocytes # [0.0-0.8 0.7 K/CMM K/CMM] (12/25/13 4:30 AM) Eosinophils # 0.2 K/CMM [0.0-0.5 K/CMM] (12/25/13 4:30 AM) Medications Administered During Your Visit No data available for this section Immunizations No data available for this section
--- OUTSIDE RECORDS SUMMARY | 2018-03-23 13:27 | XMS REPORT | Summary of Care ---
Author Author [facility] Organization [facility] Address Unknown Phone Unavailable Encounter [facility](JUWAN) [id number] Date(s): 10/09/17 - 10/10/17 [facility] [address] [place] [address]- [phone] Discharge Disposition: Home or Self Care Attending Physician: Sarah Merrill MD Admitting Physician: Sarah Merrill MD Vital Signs 1 2 3 Most recent to oldest [Reference Range]: 149.86 cm (10/09/17 12:25 PM) Height 98.4 DegF (10/10/17 12:12 PM) 98.0 DegF (10/10/17 7:25 AM) 97.9 DegF (10/10/17 3:13 AM) Temperature Oral [96.4-99.1 DegF] 104/59 mmHg (10/10/17 12:12 PM) 102/61 mmHg (10/10/17 7:25 AM) 114/60 mmHg (10/10/17 3:13 AM) Blood Pressure [90-140/60-90 mmHg] 18 BRMIN (10/10/17 12:12 PM) 17 BRMIN (10/10/17 7:25 AM) 17 BRMIN (10/10/17 3:13 AM) Respiratory Rate [14-20 BRMIN] 65 bpm (10/10/17 12:12 PM) 65 bpm (10/10/17 7:25 AM) 61 bpm (10/10/17 3:13 AM) Peripheral Pulse Rate [60-100 bpm] 80.909 kg (10/09/17 12:25 PM) Weight 36.03 m2 (10/09/17 12:25 PM) Body Mass Index Problem List Condition Effective Dates Status Health Status Informant Acute bronchitis1 Resolved Anxiety Resolved depression(Confirmed ) Anxiety(Confirmed) Active Constipation2 Active Diabetes mellitus Resolved type I(Confirmed) Gastroesophageal Active reflux disease3 Knee pain4 03/18/13 Active Liver function tests Active abnormal5 Major depressive Active disorder6 Menorrhagia7 Active Obesity(Confirmed) Active Skin tag(Confirmed) Active Type 1 diabetes Active mellitus well controlled8 Urinary tract Resolved infectious disease9 1Data migrated from [employer] on 12/13/14. 2Data migrated from [employer] on 10/25/14. 3Data migrated from [employer] on 10/25/14. 4Data migrated from [employer] on 10/25/14. 5Data migrated from [employer] on 10/25/14. 6Data migrated from [employer] on 10/25/14. 7Data migrated from [employer] on 10/25/14. 8Data migrated from [employer] on 10/25/14. 9Data migrated from [employer] on 12/13/14. Allergies, Adverse Reactions, Alerts Substance Reaction Severity Status iodine Active Medications acetaminophen 650 mg, 2 tab, Route: PO, Drug form: TAB, Q4H, Dosing Weight 80.909, kg, PRN Frankie n 1-3/Temp > 100.4 F, Start date: 10/09/17 12:43:00 CDT, Duration: 30 day, Stop date: 11/08/17 12:42:00 CDT Notes: Do not exceed 4 gm/day. (Same as: Tylenol) Start Date: 10/09/17 Stop Date: 10/10/17 Status: Discontinued Ativan 1 mg, 1 tab, Route: PO, Drug form: TAB, TID, Dosing Weight 80.909, kg, PRN Anxie ty, Start date: 10/09/17 12:51:00 CDT, Duration: 30 day, Stop date: 11/08/17 12: 50:00 CDT Notes: (Same as: Ativan) Start Date: 10/09/17 Stop Date: 10/10/17 Status: Discontinued citalopram 10 mg, PO, Daily, 0 Refill(s) Start Date: 10/09/17 Status: Ordered Crestor 10 mg oral tablet 10 mg=1 tab, PO, Bedtime, # 30 tab, 0 Refill(s) Start Date: 10/09/17 Status: Ordered Dextrose 50% Syringe 25 gm, 50 mL, Route: IVP, Drug Form: INJ, Dosing Weight 80.909, kg, PRN, PRN Blo od Glucose Results, Start date: 10/09/17 12:48:00 CDT, Duration: 30 day, Stop da te: 11/08/17 12:47:00 CDT Start Date: 10/09/17 Stop Date: 10/09/17 Status: Deleted Dextrose 50% Syringe 12.5 gm, 25 mL, Route: IVP, Drug Form: INJ, Dosing Weight 80.909, kg, PRN, PRN B lood Glucose Results, Start date: 10/09/17 12:48:00 CDT, Duration: 30 day, Stop date: 11/08/17 12:47:00 CDT Start Date: 10/09/17 Stop Date: 10/09/17 Status: Deleted Dextrose 50% Syringe 25 gm, 50 mL, Route: IVP, Drug Form: INJ, Dosing Weight 80.909, kg, PRN, PRN Blo od Glucose Results, Start date: 10/09/17 17:50:00 CDT, Duration: 30 day, Stop da te: 11/08/17 17:49:00 CDT Start Date: 10/09/17 Stop Date: 10/09/17 Status: Deleted Dextrose 50% Syringe 12.5 gm, 25 mL, Route: IVP, Drug Form: INJ, Dosing Weight 80.909, kg, PRN, PRN B lood Glucose Results, Start date: 10/09/17 17:50:00 CDT, Duration: 30 day, Stop date: 11/08/17 17:49:00 CDT Start Date: 10/09/17 Stop Date: 10/09/17 Status: Deleted Dextrose 50% Syringe 25 gm, 50 mL, Route: IVP, Drug Form: INJ, Dosing Weight 80.909, kg, PRN, PRN Blo od Glucose Results, Start date: 10/09/17 18:44:00 CDT, Duration: 30 day, Stop da te: 11/08/17 18:43:00 CDT Start Date: 10/09/17 Stop Date: 10/10/17 Status: Discontinued Dextrose 50% Syringe 12.5 gm, 25 mL, Route: IVP, Drug Form: INJ, Dosing Weight 80.909, kg, PRN, PRN B lood Glucose Results, Start date: 10/09/17 18:44:00 CDT, Duration: 30 day, Stop date: 11/08/17 18:43:00 CDT Start Date: 10/09/17 Stop Date: 10/10/17 Status: Discontinued glucagon 1 mg, Route: IM, Drug form: PDR/INJ, PRN, Dosing Weight 80.909, kg, PRN Blood Gl ucose Results, Start date: 10/09/17 12:48:00 CDT, Duration: 30 day, Stop date: 0 11/08/17 12:47:00 CDT Start Date: 10/09/17 Stop Date: 10/09/17 Status: Deleted glucagon 1 mg, Route: IM, Drug form: PDR/INJ, PRN, Dosing Weight 80.909, kg, PRN Blood Gl ucose Results, Start date: 10/09/17 17:50:00 CDT, Duration: 30 day, Stop date: 0 11/08/17 17:49:00 CDT Start Date: 10/09/17 Stop Date: 10/09/17 Status: Deleted glucagon 1 mg, Route: IM, Drug form: PDR/INJ, PRN, Dosing Weight 80.909, kg, PRN Blood Gl ucose Results, Start date: 10/09/17 18:44:00 CDT, Duration: 30 day, Stop date: 0 11/08/17 18:43:00 CDT Start Date: 10/09/17 Stop Date: 10/10/17 Status: Discontinued Humulin R 100 units/mL injectable solution 12 unit, SUB-Q, TID-Before Meals, 0 Refill(s) Start Date: 10/09/17 Status: Ordered insulin lispro 8 unit, 0.08 mL, Route: SUB-Q, Drug form: SOLN, TID-Before Meals, Dosing Weight 80.909, kg, PRN Blood Glucose Results, Start date: 10/09/17 18:44:00 CDT, Durati on: 30 day, Stop date: 11/08/17 18:43:00 CDT Notes: (Same as: Humalog ) Roll in palms of hands gently; Do not shake `vigorou sly. "Single Patient Use Only " WASTE: F/P - Black; E - [employer] [address] able for 28 days at room temperature.Expires in days from Da te Start Date: 10/09/17 Stop Date: 10/10/17 Status: Discontinued insulin lispro 10 unit, 0.1 mL, Route: SUB-Q, Drug form: SOLN, TID-Before Meals, Dosing Weight 80.909, kg, PRN Blood Glucose Results, Start date: 10/09/17 18:44:00 CDT, Durati on: 30 day, Stop date: 11/08/17 18:43:00 CDT Notes: (Same as: Humalog ) Roll in palms of hands gently; Do not shake `vigorou sly. "Single Patient Use Only " WASTE: F/P - Black; E - [facility] [employer] [address] able for 28 days at room temperature.Expires in days from Da te Start Date: 10/09/17 Stop Date: 10/10/17 Status: Discontinued insulin lispro 4 unit, 0.04 mL, Route: SUB-Q, Drug form: SOLN, TID-Before Meals, Dosing Weight 80.909, kg, PRN Blood Glucose Results, Start date: 10/09/17 18:44:00 CDT, Durati on: 30 day, Stop date: 11/08/17 18:43:00 CDT Notes: (Same as: Humalog ) Roll in palms of hands gently; Do not shake `vigorou sly. "Single Patient Use Only " WASTE: F/P - Black; E - [facility] [address] [address] able for 28 days at room temperature.Expires in days from Da te Start Date: 10/09/17 Stop Date: 10/10/17 Status: Discontinued insulin lispro 6 unit, 0.06 mL, Route: SUB-Q, Drug form: SOLN, TID-Before Meals, Dosing Weight 80.909, kg, PRN Blood Glucose Results, Start date: 10/09/17 18:44:00 CDT, Durati on: 30 day, Stop date: 11/08/17 18:43:00 CDT Notes: (Same as: Humalog ) Roll in palms of hands gently; Do not shake `vigorou sly. "Single Patient Use Only " WASTE: F/P - Black; E - [facility] [address] [address] able for 28 days at room temperature.Expires in days from Da te Start Date: 10/09/17 Stop Date: 10/10/17 Status: Discontinued insulin lispro 2 unit, 0.02 mL, Route: SUB-Q, Drug form: SOLN, TID-Before Meals, Dosing Weight 80.909, kg, PRN Blood Glucose Results, Start date: 10/09/17 18:44:00 CDT, Durati on: 30 day, Stop date: 11/08/17 18:43:00 CDT Notes: (Same as: Humalog ) Roll in palms of hands gently; Do not shake `vigorou sly. "Single Patient Use Only " WASTE: F/P - Black; E - [facility] [address] [address] able for 28 days at room temperature.Expires in days from Da te Start Date: 10/09/17 Stop Date: 10/10/17 Status: Discontinued Restoril 15 mg, 1 cap, Route: PO, Drug form: CAP, Bedtime, Dosing Weight 80.909, kg, PRN Sleep, Start date: 10/09/17 12:51:00 CDT, Duration: 30 day, Stop date: 11/08/17 12:50:00 CDT Notes: (Same As: Restoril) Start Date: 10/09/17 Stop Date: 10/10/17 Status: Discontinued Saline Flush 0.9% 10 ml, Route: IVP, Drug Form: INJ, Dosing Weight 80.909, kg, PRN, PRN Line Flush , Start date: 10/09/17 12:43:00 CDT, Duration: 30 day, Stop date: 11/08/17 12:42 :00 CDT Notes: (Same as: BD Posiflush) Start Date: 10/09/17 Stop Date: 10/10/17 Status: Discontinued Tresiba FlexTouch 30 unit, SUB-Q, Daily, 0 Refill(s) Start Date: 10/09/17 Status: Ordered Results ELECTROLYTES Most recent to 1 2 oldest [Reference Range]: Sodium Lvl [135-145 141 mEq/L mEq/L] (10/09/17 1:42 PM) Potassium Lvl 4.2 mEq/L [3.5-5.1 mEq/L] (10/09/17 1:42 PM) Chloride Lvl [95-109 106 mEq/L mEq/L] (10/09/17 1:42 PM) CO2 [24-32 mEq/L] 26 mEq/L (10/09/17 1:42 PM) AGAP [10.0-20.0 13.2 mEq/L mEq/L] (10/09/17 1:42 PM) CHEM PANEL Most recent to 1 2 oldest [Reference Range]: Creatinine Lvl 0.84 mg/dL [0.50-1.40 mg/dL] (10/09/17 1:42 PM) eGFR 85 mL/min/1.73m2 1 *NA* (10/09/17 1:42 PM) BUN [7-22 mg/dL] 14 mg/dL (10/09/17 1:42 PM) B/C Ratio [6-25] 17 (10/09/17 1:42 PM) Glucose Lvl [70-99 89 mg/dL mg/dL] (10/09/17 1:42 PM) Total Protein 7.7 g/dL [6.4-8.4 g/dL] (10/09/17 1:42 PM) Albumin Lvl [3.5-5.0 3.7 g/dL g/dL] (10/09/17 1:42 PM) Globulin [2.7-4.2 4.0 g/dL g/dL] (10/09/17 1:42 PM) A/G Ratio [0.7-1.6] 0.9 (10/09/17 1:42 PM) Calcium Lvl 8.9 mg/dL [8.5-10.5 mg/dL] (10/09/17 1:42 PM) Magnesium Lvl 2.5 mg/dL [1.8-2.4 mg/dL] *HI* (10/09/17 1:42 PM) ALT [0-65 unit/L] 25 unit/L (10/09/17 1:42 PM) AST [0-37 unit/L] 17 unit/L (10/09/17 1:42 PM) Alk Phos [39-136 143 unit/L unit/L] *HI* (10/09/17 1:42 PM) Bili Total [0.2-1.3 0.6 mg/dL mg/dL] (10/09/17 1:42 PM) 1Result Comment: The eGFR is calculated using [...] be mul tiplied by the estimated BMI. CARDIAC ENZYMES Most recent to 1 2 oldest [Reference Range]: Total CK [12-191 216 unit/L 244 unit/L unit/L] *HI* *HI* (10/09/17 7:59 PM) (10/09/17 1:42 PM) CK MB [0.5-3.6 2.0 ng/mL 2.1 ng/mL ng/mL] (10/09/17 7:59 PM) (10/09/17 1:42 PM) CK MB Index 0.9 0.9 [0.0-2.5] (10/09/17 7:59 PM) (10/09/17 1:42 PM) Troponin-I <0.02 ng/mL <0.02 ng/mL [0.00-0.40 ng/mL] (10/09/17 7:59 PM) (10/09/17 1:42 PM) LIPIDS Most recent to 1 2 oldest [Reference Range]: CHD Risk [3.90-5.80] 3.90 (10/10/17 3:07 AM) Chol [<=199 mg/dL] 187 mg/dL (10/10/17 3:07 AM) Trig [<=149 mg/dL] 256 mg/dL *HI* (10/10/17 3:07 AM) HDL [>=61 mg/dL] 48 mg/dL *LOW* (10/10/17 3:07 AM) LDL (Calculated) 88 mg/dL [<=99 mg/dL] (10/10/17 3:07 AM) VLDL 51 *NA* (10/10/17 3:07 AM) ENDOCRINOLOGY Most recent to 1 2 oldest [Reference Range]: S Preg [Negative] Negative *NA* (10/10/17 5:10 AM) HEMATOLOGY Most recent to 1 2 oldest [Reference Range]: WBC [3.7-10.4 K/CMM] 8.8 K/CMM (10/09/17 1:42 PM) RBC [4.20-5.40 4.68 M/CMM M/CMM] (10/09/17 1:42 PM) Hgb [12.0-16.0 g/dL] 13.1 g/dL (10/09/17 1:42 PM) Hct [36.0-48.0 %] 38.8 % (10/09/17 1:42 PM) MCV [80.0-98.0 fL] 83.0 fL (10/09/17 1:42 PM) MCH [27.0-31.0 pg] 28.1 pg (10/09/17 1:42 PM) MCHC [32.0-36.0 33.8 g/dL g/dL] (10/09/17 1:42 PM) RDW [11.5-14.5 %] 13.4 % (10/09/17 1:42 PM) MPV [7.4-10.4 fL] 9.2 fL (10/09/17 1:42 PM) Platelet [133-450 335 K/CMM K/CMM] (10/09/17 1:42 PM) Segs [45.0-75.0 %] 88.2 % *HI* (10/09/17 1:42 PM) Lymphocytes 10.3 % [20.0-40.0 %] *LOW* (10/09/17 1:42 PM) Monocytes [2.0-12.0 1.0 % %] *LOW* (10/09/17 1:42 PM) Eosinophils [0.0-4.0 0.1 % %] (10/09/17 1:42 PM) Basophils [0.0-1.0 0.4 % %] (10/09/17 1:42 PM) Segs-Bands # 7.8 K/CMM [1.5-8.1 K/CMM] (10/09/17 1:42 PM) Lymphocytes # 0.9 K/CMM [1.0-5.5 K/CMM] *LOW* (10/09/17 1:42 PM) Monocytes # [0.0-0.8 0.1 K/CMM K/CMM] (10/09/17 1:42 PM) Immunizations Given and Recorded Vaccine Date Status Refusal Reason Hx influenza vaccine-unspecified1 03/14/16 Recorded Hx influenza vaccine-unspecified2 03/18/13 Given influenza virus vaccine, inactivated3 03/18/13 Given 1Location History: work 2Result Comment: done. Migrated from OBS ; Data migrated from [employer] on 06/30/2015. 3Result Comment: fluzone (>3 yrs.) [[id number]]. Migrated from OBS ; Data migrated from [employer] on 06/30/2015. Procedures Procedure Date Related Diagnosis Body Site Status section1 Completed Tubal ligation Completed 1c-section x 5 Social History Social History Type Response Substance Abuse Use: None. Exercise Exercise duration: 0. Employment/School Status: Employed. Work/School description: [employer].. Alcohol Current, Type Beer.1 Smoking Status Never smoker; Exposure to Tobacco Smoke None; Cigarette Smoking Last 365 Days No; Reg Smoking Cessation Counseling No entered on: 10/09/17 1socially Assessment and Plan No data available for this section
--- OUTSIDE RECORDS SUMMARY | 2018-03-23 13:27 | XMS REPORT | Summary of Care ---
Author Author [facility] Organization [facility] Address Unknown Phone Unavailable Encounter NEDA Pate(JUWAN) [id number] Date(s): 04/11/15 - 04/11/15 [facility] [address] [place] [address]- [phone] Discharge Diagnosis: Brain concussion Discharge Diagnosis: Mild nausea Discharge Disposition: Home Attending Physician: Hailee Castellanos MD Vital Signs Most recent to 1 2 oldest [Reference Range]: Height 160.02 cm (04/11/15 2:18 PM) Temperature Oral 98 DegF 98.2 DegF [96.4-99.1 DegF] (04/11/15 5:47 PM) (04/11/15 2:18 PM) Blood Pressure 121/80 mmHg 124/93 mmHg [90-140/60-90 mmHg] (04/11/15 5:47 PM) (04/11/15 2:18 PM) Respiratory Rate 18 BRMIN 18 BRMIN [14-20 BRMIN] (04/11/15 5:47 PM) (04/11/15 2:18 PM) Peripheral Pulse 65 bpm 70 bpm Rate [60-100 bpm] (04/11/15 5:47 PM) (04/11/15 2:18 PM) Weight 72.727 kg (04/11/15 2:18 PM) Body Mass Index 28.4 m2 (04/11/15 2:18 PM) Problem List Condition Effective Dates Status Health Status Informant Abdominal pain1 Active Acute bronchitis2 Resolved Anxiety Resolved depression(Confirmed ) Constipation3 Active Diabetes Active mellitus(Confirmed) Diabetes mellitus Resolved type I(Confirmed) Gastroesophageal Active reflux disease4 Knee pain5 03/18/13 Active Liver function tests Active abnormal6 Major depressive Active disorder7 Menorrhagia8 Active Nausea(Confirmed) Active 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 2Data migrated from [employer] on 12/13/14. 3Data migrated from [employer] on 10/25/14. 4Data migrated from [employer] on 10/25/14. 5Data migrated from [employer] on 10/25/14. 6Data migrated from [employer] on 10/25/14. 7Data migrated from [employer] on 10/25/14. 8Data migrated from [employer] on 10/25/14. 9Data migrated from [employer] on 10/25/14. 10Data migrated from [employer] on 12/13/14. Allergies, Adverse Reactions, Alerts Substance Reaction Severity Status NKDA Active Medications Dextrose 50% Syringe 12.5 gm, 25 mL, Route: IVP, Drug Form: INJ, Dosing Weight 72.727, kg, PRN, PRN B lood Glucose Results, Start date: 04/11/15 14:52:00, Duration: 30 day, Stop date : 05/11/15 14:51:00 Start Date: 04/11/15 Stop Date: 04/12/15 Status: Discontinued Dextrose 50% Syringe 25 gm, 50 mL, Route: IVP, Drug Form: INJ, Dosing Weight 72.727, kg, PRN, PRN Blo od Glucose Results, Start date: 04/11/15 14:52:00, Duration: 30 day, Stop date: 05/11/15 14:51:00 Start Date: 04/11/15 Stop Date: 04/12/15 Status: Discontinued glucagon 1 mg, Route: IM, Drug form: PDR/INJ, PRN, Dosing Weight 72.727, kg, PRN Blood Gl ucose Results, Start date: 04/11/15 14:52:00, Duration: 30 day, Stop date: 05/11 14:51:00 Start Date: 04/11/15 Stop Date: 04/12/15 Status: Discontinued meclizine 25 mg, Route: PO, Drug form: TAB, ONCE, Dosing Weight 72.727, kg, Priority: STAT , Start date: 04/11/15 16:55:00, Stop date: 04/11/15 16:55:00 Start Date: 04/11/15 Stop Date: 04/11/15 Status: Completed meclizine 25 mg oral tablet 25 mg=1 tab, PO, TID, PRN as needed for dizziness, X 3 day, # 10 tab, 0 Refill(s ) Start Date: 04/11/15 Stop Date: 04/14/15 Status: Ordered ondansetron 4 mg, 2 mL, Route: IVP, Drug form: INJ, ONCE, Dosing Weight 72.727, kg, Priority : STAT, Start date: 04/11/15 14:52:00, Stop date: 04/11/15 14:52:00 Notes: (Same as: Shruthi) MEDICATION WASTE Product Size: 4 mgProduct Was zoya: ___ mg Start Date: 04/11/15 Stop Date: 04/11/15 Status: Completed Protonix 40 mg, Route: IVP, Drug form: INJ, ONCE, Dosing Weight 72.727, kg, Priority: STA T, Start date: 04/11/15 14:53:00, Stop date: 04/11/15 14:53:00 Notes: For IV push reconstitute with 10 ml 0.9% sodium chloride and push over 2 minutes. (Same as: Protonix) Start Date: 04/11/15 Stop Date: 04/11/15 Status: Completed Reglan 10 mg, Route: IVP, Drug form: INJ, ONCE, Dosing Weight 72.727, kg, Priority: STA T, Start date: 04/11/15 16:55:00, Stop date: 04/11/15 16:55:00 Start Date: 04/11/15 Stop Date: 04/11/15 Status: Completed Saline Flush 0.9% 10 mL, Route: IVP, Drug Form: INJ, Dosing Weight 72.727, kg, PRN, PRN Line Flush , Start date: 04/11/15 14:52:00, Duration: 30 day, Stop date: 05/11/15 14:51:00 Notes: (Same as: BD Posiflush) Start Date: 04/11/15 Stop Date: 04/12/15 Status: Discontinued Sodium Chloride 0.9% (Bolus) IV 1,000 mL, 1,000 ml/hr, Infuse Over: 1 hr, Route: IV, 1,000, Drug form: INJ, ONCE , Priority: STAT, Dosing Weight 72.727 kg, Start date: 04/11/15 14:52:00, Durati on: 1 doses or times, Stop date: 04/11/15 14:52:00 Start Date: 04/11/15 Stop Date: 04/11/15 Status: Completed Zofran ODT 4 mg oral tablet, disintegrating 4 mg=1 tab, PO, BID, PRN Nausea and Vomiting, Dissolve tab under tongue, X 5 day , # 10 tab, 0 Refill(s) Start Date: 04/11/15 Stop Date: 04/16/15 Status: Ordered Results ELECTROLYTES Most recent to 1 oldest [Reference Range]: Sodium Lvl [135-145 140 mEq/L mEq/L] (04/11/15 3:39 PM) Potassium Lvl 3.8 mEq/L [3.5-5.1 mEq/L] (04/11/15 3:39 PM) Chloride Lvl [95-109 108 mEq/L mEq/L] (04/11/15 3:39 PM) CO2 [24-32 mEq/L] 26 mEq/L (04/11/15 3:39 PM) AGAP [10.0-20.0 9.8 mEq/L mEq/L] *LOW* (04/11/15 3:39 PM) CHEM PANEL Most recent to 1 oldest [Reference Range]: Creatinine Lvl 0.79 mg/dL [0.50-1.40 mg/dL] (04/11/15 3:39 PM) eGFR 92 mL/min/1.73m2 1 *NA* (04/11/15 3:39 PM) BUN [7-22 mg/dL] 8 mg/dL (04/11/15 3:39 PM) B/C Ratio [6-25] 10 (04/11/15 3:39 PM) Glucose Lvl [70-99 165 mg/dL mg/dL] *HI* (04/11/15 3:39 PM) Total Protein 6.9 g/dL [6.4-8.4 g/dL] (04/11/15 3:39 PM) Albumin Lvl [3.5-5.0 3.1 g/dL g/dL] *LOW* (04/11/15 3:39 PM) Globulin [2.0-4.0 3.8 g/dL g/dL] (04/11/15 3:39 PM) A/G Ratio [0.7-1.6] 0.8 (04/11/15 3:39 PM) Calcium Lvl 8.5 mg/dL [8.5-10.5 mg/dL] (04/11/15 3:39 PM) ALT [0-65 unit/L] 25 unit/L (04/11/15 3:39 PM) AST [0-37 unit/L] 16 unit/L (04/11/15 3:39 PM) Alk Phos [39-136 139 unit/L unit/L] *HI* (04/11/15 3:39 PM) Bili Total [0.2-1.3 0.3 mg/dL mg/dL] (04/11/15 3:39 PM) Lipase Lvl [73-393 80 unit/L unit/L] (04/11/15 3:39 PM) Ketone Quantitative 0.06 mmol/L [<=0.27 mmol/L] (04/11/15 3:39 PM) 1Result Comment: The eGFR is calculated [...] BMI. CARDIAC ENZYMES Most recent to 1 oldest [Reference Range]: Total CK [12-191 73 unit/L unit/L] (04/11/15 3:39 PM) CK MB [0.5-3.6 0.8 ng/mL ng/mL] (04/11/15 3:39 PM) CK MB Index 1.1 [0.0-2.5] (04/11/15 3:39 PM) Troponin-I <0.02 ng/mL [0.00-0.40 ng/mL] (04/11/15 3:39 PM) URINE CHEM Most recent to 1 oldest [Reference Range]: U Preg [Negative] Negative (04/11/15 3:38 PM) URINE AND STOOL Most recent to 1 oldest [Reference Range]: UA Turbidity [Clear] Clear (04/11/15 3:38 PM) UA Color Ltyellow *NA* (04/11/15 3:38 PM) UA pH [5.0-8.0] 7.0 (04/11/15 3:38 PM) UA Spec Grav 1.010 [<=1.030] (04/11/15 3:38 PM) UA Glucose [Negative 150 mg/dL mg/dL] *ABN* (04/11/15 3:38 PM) UA Blood [Negative] Negative (04/11/15 3:38 PM) UA Ketones [Negative Negative mg/dL mg/dL] *NA* (04/11/15 3:38 PM) UA Protein [Negative Negative mg/dL mg/dL] (04/11/15 3:38 PM) UA Urobilinogen <=1.0 mg/dL [0.1-1.0 mg/dL] *NA* (04/11/15 3:38 PM) UA Bili [Negative] Negative *NA* (04/11/15 3:38 PM) UA Leuk Est Negative [Negative] (04/11/15 3:38 PM) UA Nitrite Negative [Negative] (04/11/15 3:38 PM) UA Sq Epi [Few /LPF] Occasional /LPF *NA* (04/11/15 3:38 PM) HEMATOLOGY Most recent to 1 oldest [Reference Range]: WBC [3.7-10.4 K/CMM] 5.7 K/CMM (04/11/15 3:39 PM) RBC [4.20-5.40 4.46 M/CMM M/CMM] (04/11/15 3:39 PM) Hgb [12.0-16.0 g/dL] 12.5 g/dL (04/11/15 3:39 PM) Hct [36.0-48.0 %] 37.5 % (04/11/15 3:39 PM) MCV [80.0-98.0 fL] 84.2 fL (04/11/15 3:39 PM) MCH [27.0-31.0 pg] 28.1 pg (04/11/15 3:39 PM) MCHC [32.0-36.0 33.4 g/dL g/dL] (04/11/15 3:39 PM) RDW [11.5-14.5 %] 13.1 % (04/11/15 3:39 PM) Platelet [133-450 242 K/CMM K/CMM] (04/11/15 3:39 PM) MPV [7.4-10.4 fL] 10.3 fL (04/11/15 3:39 PM) Segs [45.0-75.0 %] 50.1 % (04/11/15 3:39 PM) Lymphocytes 32.6 % [20.0-40.0 %] (04/11/15 3:39 PM) Monocytes [2.0-12.0 11.1 % %] (04/11/15 3:39 PM) Eosinophils [0.0-4.0 5.4 % %] *HI* (04/11/15 3:39 PM) Basophils [0.0-1.0 0.8 % %] (04/11/15 3:39 PM) Segs-Bands # 2.8 K/CMM [1.5-8.1 K/CMM] (04/11/15 3:39 PM) Lymphocytes # 1.8 K/CMM [1.0-5.5 K/CMM] (04/11/15 3:39 PM) Monocytes # [0.0-0.8 0.6 K/CMM K/CMM] (04/11/15 3:39 PM) Eosinophils # 0.3 K/CMM [0.0-0.5 K/CMM] (04/11/15 3:39 PM) Immunizations No data available for this section Procedures Procedure Date Related Diagnosis Body Site section1 1c-section x 5 Social History Social History Type Response Smoking Status Never smoker; Exposure to Tobacco Smoke None; Cigarette Smoking Last 365 Days No; Reg Smoking Cessation Counseling No Assessment and Plan No data available for this section
[2018-03-23 14:10] LABS: BASOPHILS # (AUTO) 0.1 (0.0-0.1); BASOPHILS % 0.5 % (0.0-1.0); EOSINOPHILS # (AUTO) 0.3 (0.0-0.4); HEMATOCRIT 42.1 % (34.2-44.1); HEMOGLOBIN 14.2 g/dL (12.0-16.0); LYMPHOCYTES # (AUTO) 4.1 (1.0-3.2); LYMPHOCYTES % 40.8 % (18.0-39.1); MEAN CORPUSCULAR HGB CONC 33.7 g/dL (31-35); MEAN CORPUSCULAR VOLUME 86.1 fL (81-99); MONOCYTES # (AUTO) 1.1 (0.2-0.8); MONOCYTES % 10.5 % (4.4-11.3); NEUTROPHILS # (AUTO) 4.5 (2.1-6.9); NEUTROPHILS % 44.9 % (38.7-80.0); PLATELET COUNT 333 x10e3/uL (140-360); RED BLOOD COUNT 4.89 x10e6/uL (3.6-5.1); RED CELL DISTRIBUTION WIDTH 12.6 % (11.7-14.4)
[2018-03-23 14:26] LABS: ANION GAP 16.7 mmol/L (8-16); BLOOD UREA NITROGEN 10 mg/dL (7-26); BUN/CREATININE RATIO 14 (6-25); CALCIUM 9.8 mg/dL (8.4-10.2); CARBON DIOXIDE 23 mmol/L (22-29); CHLORIDE 105 mmol/L (98-107); CREATININE, SERUM 0.73 mg/dL (0.57-1.11); EST GLOMERULAR FILTRATION RATE > 60 ML/MIN (60-); POTASSIUM 3.7 mmol/L (3.5-5.1); SODIUM 141 mmol/L (136-145)
[2018-03-23 14:30] LABS: GLUCOSE 27 mg/dL (74-118)
[2018-03-23 14:52] VITALS: BP 127/79
== END 2018-03-23 14:40 | disposition home or self-care (01) ==
LOC: ER 13:20
DX: E11.649 Type 2 diabetes mellitus with hypoglycemia without coma (principal)
CPT/HCPCS: 36415; 80048; 82948; 85025; 99283

== ENCOUNTER 2019-01-07 18:32 | Emergency (ER) | payer SELFPAY ==
[~2019-01-07] VITALS: Ht 157.5 cm; Wt 77.1 kg
--- OUTSIDE RECORDS SUMMARY | 2019-01-07 18:36 | XMS REPORT | Continuity of Care Document ---
Author Author [employer] Organization [employer] Address Unknown Phone Unavailable Care Team Providers Care Doweler Name Role Phone [employer] Unavailable Unavailable Problems Problem Status Onset Date Classification Date Reported Comments Source CHEST PAIN Active 10/09/2017 [facility] Discharge Diagnosis: Brain concussion 04/11/2015 04/14/2015 [facility] Discharge Diagnosis: Mild nausea 04/11/2015 04/14/2015 [facility] DIZZINESS Active 04/11/2015 [facility] Discharge Diagnosis: Gastritis 12/25/2013 12/28/2013 [facility] Discharge Diagnosis: Acute gastroenteritis 12/25/2013 12/28/2013 [facility] DIARRHEA Active 12/25/2013 [facility] Knee pain4 Active 03/18/2013 Problem 10/13/2017 Data migrated from [employer] on 10/25/14. [facility] Knee pain5 Active 03/18/2013 Problem 04/14/2015 Data migrated from [employer] on 10/25/14. [facility] SCREENING Active 03/11/2013 [facility] HYPERGLYCEMIA Active 11/11/2012 [facility] ELECTROLYTE DERANGEMENT;DM Active 11/11/2012 [facility] OTHER Active 09/03/2012 [facility] ROUTINE SCREENING Active 02/02/2012 [facility] HYPERGLYCEMIA, NAUSEA Active 12/20/2011 [facility] DKA Active 12/20/2011 [facility] Diabetes mellitus Active Problem 11/14/2012 [facility] Nausea Active Problem 11/14/2012 [facility] Seizures due to metabolic disorder Active Problem 11/14/2012 [facility] Acute bronchitis1 Resolved Problem 10/13/2017 Data migrated from [employer] on 12/13/14. [facility] Anxiety depression Resolved Problem 10/13/2017 [facility] Anxiety Active Problem 10/13/2017 [facility] Constipation2 Active Problem 10/13/2017 Data migrated from [employer] on 10/25/14. [facility] Diabetes mellitus type I Resolved Problem 10/13/2017 [facility] Gastroesophageal reflux disease3 Active Problem 10/13/2017 Data migrated from [employer] on 10/25/14. [facility] Liver function tests abnormal5 Active Problem 10/13/2017 Data migrated from [employer] on 10/25/14. [facility] Major depressive disorder6 Active Problem 10/13/2017 Data migrated from [employer] on 10/25/14. [facility] Menorrhagia7 Active Problem 10/13/2017 Data migrated from [employer] on 10/25/14. [facility] Obesity Active Problem 10/13/2017 [facility] Skin tag Active Problem 10/13/2017 [facility] Type 1 diabetes mellitus well controlled8 Active Problem 10/13/2017 Data migrated from [employer] on 10/25/14. [facility] Urinary tract infectious disease9 Resolved Problem 10/13/2017 Data migrated from [employer] on 12/13/14. [facility] Diabetes mellitus type I Resolved Problem 11/14/2012 [facility] Diabetes mellitus Active Problem 04/14/2015 [facility] Nausea Active Problem 04/14/2015 [facility] Seizures due to metabolic disorder Active Problem 04/14/2015 [facility] Abdominal pain1 Active Problem 04/14/2015 Data migrated from [employer] on 10/25/14. [facility] Acute bronchitis2 Resolved Problem 04/14/2015 Data migrated from [employer] on 12/13/14. [facility] Constipation3 Active Problem 04/14/2015 Data migrated from [employer] on 10/25/14. [facility] Gastroesophageal reflux disease4 Active Problem 04/14/2015 Data migrated from [employer] on 10/25/14. [facility] Liver function tests abnormal6 Active Problem 04/14/2015 Data migrated from [employer] on 10/25/14. [facility] Major depressive disorder7 Active Problem 04/14/2015 Data migrated from [employer] on 10/25/14. [facility] Menorrhagia8 Active Problem 04/14/2015 Data migrated from [employer] on 10/25/14. [facility] Type 1 diabetes mellitus well controlled9 Active Problem 04/14/2015 Data migrated from [employer] on 10/25/14. [facility] Urinary tract infectious nuicxte21 Resolved Problem 04/14/2015 Data migrated from [employer] on 12/13/14. [facility] Anxiety depression Resolved Problem 11/14/2012 [facility] DMII KETO NT ST UNCNTRLD Active [facility] Medications Medication Details Route Status Patient [...] days from Date No Longer Active 10/09/2017 [facility] Dextrose 50% Syringe 25 gm, 50 mL, Route: IVP, Drug Form: INJ, Dosing Weight 80.909, kg, PRN, PRN Blood Glucose Results, Start date: 10/09/17 18:44:00 CDT, Duration: 30 day, Stop date: 11/08/17 18:43:00 CDT No Longer Active 10/09/2017 [facility] Glucagon 1 mg, Route: IM, Drug form: PDR/INJ, PRN, Dosing Weight 80.909, kg, PRN Blood Glucose Results, Start date: 10/09/17 18:44:00 CDT, Duration: 30 day, Stop date: 11/08/17 18:43:00 CDT No Longer Active 10/09/2017 [facility] Dextrose 50% Syringe 25 gm, 50 mL, Route: IVP, Drug Form: INJ, Dosing Weight 80.909, kg, PRN, PRN Blood Glucose Results, Start date: 10/09/17 17:50:00 CDT, Duration: 30 day, Stop date: 11/08/17 17:49:00 CDT Inactive 10/09/2017 [facility] Glucagon 1 mg, Route: IM, Drug form: PDR/INJ, PRN, Dosing Weight 80.909, kg, PRN Blood Glucose Results, Start date: 10/09/17 17:50:00 CDT, Duration: 30 day, Stop date: 11/08/17 17:49:00 CDT Inactive 10/09/2017 [facility] Restoril 15 mg, 1 cap, Route: PO, Drug form: CAP, Bedtime, Dosing Weight 80.909, kg, PRN Sleep, Start date: 10/09/17 12:51:00 CDT, Duration: 30 day, Stop date: 11/08/17 12:50:00 CDTNotes: (Same As: Restoril) No Longer Active 10/09/2017 [facility] Ativan 1 mg, 1 tab, Route: PO, Drug form: TAB, TID, Dosing Weight 80.909, kg, PRN Anxiety, Start date: 10/09/17 12:51:00 CDT, Duration: 30 day, Stop date: 11/08/17 12:50:00 CDTNotes: (Same as: Ativan) No Longer Active 10/09/2017 [facility] Dextrose 50% Syringe 25 gm, 50 mL, Route: IVP, Drug Form: INJ, Dosing Weight 80.909, kg, PRN, PRN Blood Glucose Results, Start date: 10/09/17 12:48:00 CDT, Duration: 30 day, Stop date: 11/08/17 12:47:00 CDT Inactive 10/09/2017 [facility] Glucagon 1 mg, Route: IM, Drug form: PDR/INJ, PRN, Dosing Weight 80.909, kg, PRN Blood Glucose Results, Start date: 10/09/17 12:48:00 CDT, Duration: 30 day, Stop date: 11/08/17 12:47:00 CDT Inactive 10/09/2017 [facility] Saline Flush 0.9% 10 ml, Route: IVP, Drug Form: INJ, Dosing Weight 80.909, kg, PRN, PRN Line Flush, Start date: 10/09/17 12:43:00 CDT, Duration: 30 day, Stop date: 11/08/17 12:42:00 CDTNotes: (Same as: BD Posiflush) No Longer Active 10/09/2017 [facility] Acetaminophen 650 mg, 2 tab, Route: PO, Drug form: TAB, Q4H, Dosing Weight 80.909, kg, PRN Pain 1-3/Temp > 100.4 F, Start date: 10/09/17 12:43:00 CDT, Duration: 30 day, Stop date: 11/08/17 12:42:00 CDTNotes: Do not exceed 4 gm/day. (Same as: Tylenol) No Longer Active 10/09/2017 [facility] Regular Insulin, Human 100 UNT/ML Injectable Solution [Humulin R] 12 unit, SUB-Q, TID-Before Meals, 0 Refill(s) Active 10/09/2017 [facility] Tresiba FlexTouch 30 unit, SUB-Q, Daily, 0 Refill(s) Active 10/09/2017 [facility] Rosuvastatin calcium 10 MG Oral Tablet [Crestor] 10 mg=1 tab, PO, Bedtime, # 30 tab, 0 Refill(s) Active 10/09/2017 [facility] Citalopram 10 mg, PO, Daily, 0 Refill(s) Active 10/09/2017 [facility] meclizine 25 mg oral tablet 25 mg=1 tab, PO, TID, PRN as needed for dizziness, X 3 day, # 10 tab, 0 Refill(s) Active 04/11/2015 [facility] Ondansetron 4 MG Disintegrating Tablet [Zofran] 4 mg=1 tab, PO, BID, PRN Nausea and Vomiting, Dissolve tab under tongue, X 5 day, # 10 tab, 0 Refill(s) Active 04/11/2015 [facility] Reglan 10 mg, Route: IVP, Drug form: INJ, ONCE, Dosing Weight 72.727, kg, Priority: STAT, Start date: 04/11/15 16:55:00, Stop date: 04/11/15 16:55:00 Inactive 04/11/2015 [facility] Meclizine 25 mg, Route: PO, Drug form: TAB, ONCE, Dosing Weight 72.727, kg, Priority: STAT, Start date: 04/11/15 16:55:00, Stop date: 04/11/15 16:55:00 Inactive 04/11/2015 [facility] Protonix 40 mg, Route: IVP, Drug form: INJ, ONCE, Dosing Weight 72.727, kg, Priority: STAT, Start date: 04/11/15 14:53:00, Stop date: 04/11/15 14:53:00Notes: For IV push reconstitute with 10 ml 0.9% sodium chloride and push over 2 minutes. (Same as: Protonix) Inactive 04/11/2015 [facility] Ondansetron 4 mg, 2 mL, Route: IVP, Drug form: INJ, ONCE, Dosing Weight 72.727, kg, Priority: STAT, Start date: 04/11/15 14:52:00, Stop date: 04/11/15 14:52:00Notes: (Same as: Zofran) MEDICATION WASTE Product Size: 4 mg Product Wasted: ___ mg Inactive 04/11/2015 [facility] Glucagon 1 mg, Route: IM, Drug form: PDR/INJ, PRN, Dosing Weight 72.727, kg, PRN Blood Glucose Results, Start date: 04/11/15 14:52:00, Duration: 30 day, Stop date: 05/11/15 14:51:00 No Longer Active 04/11/2015 [facility] Dextrose 50% Syringe 12.5 gm, 25 mL, Route: IVP, Drug Form: INJ, Dosing Weight 72.727, kg, PRN, PRN Blood Glucose Results, Start date: 04/11/15 14:52:00, Duration: 30 day, Stop date: 05/11/15 14:51:00 No Longer Active 04/11/2015 [facility] Saline Flush 0.9% 10 mL, Route: IVP, Drug Form: INJ, Dosing Weight 72.727, kg, PRN, PRN Line Flush, Start date: 04/11/15 14:52:00, Duration: 30 day, Stop date: 05/11/15 14:51:00Notes: (Same as: BD Posiflush) No Longer Active 04/11/2015 [facility] Sodium Chloride 0.154 MEQ/ML Injectable Solution 1,000 mL, 1,000 ml/hr, Infuse Over: 1 hr, Route: IV, 1,000, Drug form: INJ, ONCE, Priority: STAT, Dosing Weight 72.727 kg, Start date: 04/11/15 14:52:00, Duration: 1 doses or times, Stop date: 04/11/15 14:52:00 Inactive 04/11/2015 [facility] Ondansetron 4 MG Disintegrating Tablet [Zofran] 4 mg=1 tab, PO, BID, Nausea and Vomiting, Dissolve tab under tongue, # 10 tab, 0 Refill(s)Special Instructions: Dissolve tab under tongue Active 12/25/2013 [facility] tramadol hydrochloride 50 MG Oral Tablet 50 mg=1 tab, PO, Q6H, Pain, # 10 tab, 0 Refill(s) Active 12/25/2013 [facility] Famotidine 20 MG Oral Tablet [Pepcid] 20 mg=1 tab, PO, BID, # 30 tab, 0 Refill(s) Active 12/25/2013 [facility] Ciprofloxacin 500 MG Oral Tablet [Cipro] 500 mg=1 tab, PO, Q12H, # 6 tab, 0 Refill(s) Active 12/25/2013 [facility] GI cocktail 30 mL, Route: PO, Dosing Weight 68.182, kg, ONCE, STAT, Start date: 12/25/13 5:28:00, Stop date: 12/25/13 5:28:00 Inactive 12/25/2013 [facility] Sodium Chloride 0.154 MEQ/ML Injectable Solution 1,000 mL, 1,000 ml/hr, Infuse Over: 1 hr, Route: IV, 1,000, Drug form: INJ, ONCE, Priority: STAT, Dosing Weight 68.182 kg, Start date: 12/25/13 5:27:00, Duration: 1 doses or times, Stop date: 12/25/13 5:27:00 Inactive 12/25/2013 [facility] Zofran 4 mg, Route: IVP, Drug form: INJ, ONCE, Dosing Weight 68.182, kg, Priority: STAT, Start date: 12/25/13 5:26:00, Stop date: 12/25/13 5:26:00 Inactive 12/25/2013 [facility] Morphine 4 mg, Route: IVP, Drug form: INJ, ONCE, Dosing Weight 68.182, kg, Priority: STAT, Start date: 12/25/13 5:26:00, Stop date: 12/25/13 5:26:00 Inactive 12/25/2013 [facility] Pepcid 20 mg, Route: IV, ONCE, Dosing Weight 68.182, kg, Start date: 12/25/13 5:26:00, Stop date: 12/25/13 5:26:00 Inactive 12/25/2013 [facility] Sodium Chloride 0.154 MEQ/ML Injectable Solution 1,000 mL, 1,000 ml/hr, Infuse Over: 1 hr, Route: IV, ONCE, Priority: STAT, Dosing Weight 68.182 kg, Start date: 12/25/13 4:36:00, Duration: 1 doses or times, Stop date: 12/25/13 4:36:00 Inactive 12/25/2013 [facility] Zofran 4 mg, Route: IVP, Drug form: INJ, ONCE, Dosing Weight 68.182, kg, Priority: STAT, Start date: 12/25/13 4:35:00, Stop date: 12/25/13 4:35:00 Inactive 12/25/2013 [facility] [place] 7.5/325 oral tablet 1 tab, PO, Q6H, PRN, 40 tab, Pain, Substitution Allowed, Maintenance, TAB PO Active [facility] 11/12/2012 [facility] fluoxetine 10 mg oral capsule 10 mg, 1 cap, PO, Daily, 30 cap, 2, 2, Substitution Allowed, CAP PO Active [facility] 11/12/2012 [facility] ranitidine 150 mg oral tablet 150 mg, 1 tab, Route: PO, Drug form: TAB, BID, Dosing Weight 59.091, kg, Start date: 11/12/12 9:00:00, Duration: 30 day, Stop date: 12/11/12 17:00:00 PO No Longer Active [facility] 11/12/2012 [facility] fluoxetine 10 mg, 1 cap, Route: PO, Drug form: CAP, Daily, Dosing Weight 59.091, kg, Start date: 11/12/12 9:00:00, Duration: 30 day, Stop date: 12/11/12 9:00:00 PO No Longer Active [facility] 11/12/2012 [facility] Levemir FlexPen 30 unit, 0.3 mL, Route: SUB-Q, Drug form: INJ, Q12H, Dosing Weight 59.091, kg, Start date: 11/12/12 9:00:00, Duration: 30 day, Stop date: 12/11/12 21:00:00 SUB-Q No Longer Active [facility] 11/12/2012 [facility] Pepcid 20 mg, 1 tab, Route: PO, Drug form: TAB, BID, Start date: 11/12/12 9:00:00, Duration: 30 day, Stop date: 12/11/12 17:00:00 PO No Longer Active [facility] 11/12/2012 [facility] NovoLog PenFill 15 unit, 0.15 mL, Route: SUB-Q, Drug form: SOLN, TID-Before Meals, Dosing Weight 59.091, kg, Start date: 11/12/12 7:30:00, Duration: 30 day, Stop date: 12/11/12 16:30:00 SUB-Q No Longer Active [facility] 11/12/2012 [facility] temazepam 15 mg, 1 cap, Route: PO, Drug form: CAP, Bedtime, Dosing Weight 59.091, kg, Start date: 11/11/12 23:00:00, Duration: 30 day, Stop date: 12/11/12 21:00:00 PO No Longer Active [facility] 11/12/2012 [facility] [place] 7.5/325 oral tablet 1 tab, Route: PO, Drug Form: TAB, Dosing Weight 59.091, kg, Q6H, PRN Pain, Start date: 11/11/12 22:54:00, Duration: 30 day, Stop date: 12/11/12 22:53:00 PO No Longer Active [facility] 11/12/2012 [facility] acetaminophen 1,000 mg, 2 tab, Route: PO, Drug form: TAB, Q4H, Dosing Weight 59.091, kg, PRN Headache, Start date: 11/11/12 22:53:00, Duration: 30 day, Stop date: 12/11/12 22:52:00 PO No Longer Active [facility] 11/12/2012 [facility] Levemir FlexPen 30 unit, 0.3 mL, Route: SUB-Q, Drug form: INJ, ONCE, Dosing Weight 59.091, kg, Priority: NOW, Start date: 11/11/12 21:34:00, Stop date: 11/11/12 21:34:00 SUB-Q No Longer Active [facility] 11/12/2012 [facility] NovoLog PenFill 15 unit, 0.15 mL, Route: SUB-Q, Drug form: SOLN, ONCE, Dosing Weight 59.091, kg, Priority: NOW, Start date: 11/11/12 21:33:00, Stop date: 11/11/12 21:33:00 SUB-Q No Longer Active [facility] 11/12/2012 [facility] nitroglycerin 0.4 mg sublingual tablet 0.4 mg, 1 tab, Route: SL, Drug form: TAB, Q5Min, PRN Chest Pain, Start date: 11/11/12 21:01:00, Duration: 30 day, Stop date: 12/11/12 21:00:00 SL No Longer Active [facility] 11/12/2012 [facility] atropine 0.5 mg, 5 mL, Route: IVP, Drug form: INJ, PRN, PRN Bradycardia, Start date: 11/11/12 21:01:00, Duration: 30 day, Stop date: 12/11/12 21:00:00 IVP No Longer Active [facility] 11/12/2012 [facility] insulin aspart 4 unit, 0.04 mL, Route: SUB-Q, Drug form: SOLN, TID-Before Meals, Dosing Weight 59.091, kg, PRN Blood Glucose Results, Start date: 11/11/12 20:48:00, Duration: 30 day, Stop date: 12/11/12 20:47:00 SUB-Q No Longer Active [facility] 11/12/2012 [facility] glucagon 1 mg, Route: IM, Drug form: PDR/INJ, PRN, Dosing Weight 59.091, kg, PRN Blood Glucose Results, Start date: 11/11/12 20:48:00, Duration: 30 day, Stop date: 12/11/12 20:47:00 IM No Longer Active [facility] 11/12/2012 [facility] Dextrose 50% Syringe 12.5 gm, 25 mL, Route: IVP, Drug Form: INJ, Dosing Weight 59.091, kg, PRN, PRN Blood Glucose Results, Start date: 11/11/12 20:48:00, Duration: 30 day, Stop date: 12/11/12 20:47:00 IVP No Longer Active [facility] 11/12/2012 [facility] NovoLog PenFill 100 units/mL subcutaneous solution 5 unit, SUB-Q, TID-Before Meals, 3 mL, Substitution Allowed, SOLN SUB-Q Active 11/11/2012 [facility] ranitidine 150 mg oral tablet 150 mg, 1 tab, PO, BID, PRN, 60 tab, heartburn, Substitution Allowed PO Active [facility] 11/11/2012 [facility] Lantus Solostar Pen 100 units/mL subcutaneous solution 20 unit, SUB-Q, Bedtime, 10 ml, Substitution Allowed, SOLN SUB-Q Active 11/11/2012 [facility] Lantus Solostar Pen 100 units/mL subcutaneous solution 30 unit, SUB-Q, Daily, 10 ml, Substitution Allowed, SOLN SUB-Q Active 11/11/2012 [facility] fluoxetine 10 mg oral capsule 10 mg, 1 cap, PO, Daily, 60 cap, Substitution Allowed, CAP PO No Longer Active [facility] 11/11/2012 [facility] magnesium sulfate 2 gm, 50 mL, Route: IVPB, Drug form: INJ, ONCE, Dosing Weight 59.091, kg, Total dose=2 gm, Start date: 11/11/12 17:39:00, Duration: 1 doses or times, Stop date: 11/11/12 17:39:00 IVPB No Longer Active [facility] 11/11/2012 [facility] sodium phosphate + Dextrose 5% in Water IV 250 mL 30 mmol, 10 mL, Route: IVPB, ONCE, Dosing Weight 59.091, kg, Start date: 11/11/12 15:29:00, Duration: 1 doses or times, Stop date: 11/11/12 15:29:00, For PO4=1.5 - 1.9 mg/dL; Administer when K level > 3.9mEq/L.For PO4=1.5 - 1.9 mg/dL; Administer when K level > 3.9mEq/L. IVPB No Longer Active [facility] 11/11/2012 [facility] ondansetron 4 mg, Route: IVP, Drug form: INJ, ONCE, Dosing Weight 59.091, kg, Priority: STAT, Start date: 11/11/12 15:28:00, Stop date: 11/11/12 15:28:00 IVP No Longer Active [facility] 11/11/2012 [facility] NS 1,000 mL 1,000 mL, Rate: 150 ml/hr, Infuse over: 6.7 hr, Route: IV, Dosing Weight 59.091 kg, Total Volume: 1,000, Start date: 11/11/12 14:57:00, Duration: 30 day, Stop date: 12/11/12 14:56:00 IV No Longer Active [facility] 11/11/2012 [facility] NS (Bolus) IV 1,000 mL 1,000 mL, Rate: 1,000 ml/hr, Infuse over: 1 hr, Route: IV, Dosing Weight 59.091 kg, Total Volume: 1,000, Priority: STAT, Start date: 11/11/12 14:57:00, Duration: 1 doses or times, Stop date: 11/11/12 15:56:00, Bolus DoseBolus Dose IV No Longer Active [facility] 11/11/2012 [facility] Saline Flush 0.9% 5 mL, Route: IVP, Drug Form: INJ, Dosing Weight 59.091, kg, PRN, PRN Line Flush, Start date: 11/11/12 14:25:00, Duration: 30 day, Stop date: 12/11/12 14:24:00 IVP No Longer Active [facility] 11/11/2012 [facility] Dextrose 50% Syringe 12.5 gm, 25 mL, Route: IVP, Drug Form: INJ, Dosing Weight 59.091, kg, PRN, PRN Blood Glucose Results, Start date: 11/11/12 14:25:00, Duration: 30 day, Stop date: 12/11/12 14:24:00, If Blood Glucose is 40 - 60 mg/dL. For patients that are Unconscious o... IVP No Longer Active [facility] 11/11/2012 [facility] glucagon 1 mg, Route: IM, Drug form: PDR/INJ, PRN, Dosing Weight 59.091, kg, PRN Blood Glucose Results, Start date: 11/11/12 14:25:00, Duration: 30 day, Stop date: 12/11/12 14:24:00, For BG IM No Longer Active [facility] 11/11/2012 [facility] Phenergan 25 mg oral tablet 25 mg, 1 tab, PO, Q4H, PRN, 15 tab, Nausea, Substitution Allowed PO Active [facility] 09/04/2012 [facility] Ultram 50 mg oral tablet 50 mg, 1 tab, PO, Q4H, PRN, 20 tab, pain, Substitution Allowed PO Active [facility] 09/04/2012 [facility] Macrobid 100 mg oral capsule 100 mg, 1 cap, PO, BID, 14 cap, Substitution Allowed PO Active [facility] 09/04/2012 [facility] ondansetron 4 mg, Route: IVP, Drug form: INJ, ONCE, Dosing Weight 77.273, kg, Priority: STAT, Start date: 09/04/12 2:28:00, Stop date: 09/04/12 2:28:00 IVP No Longer Active [facility] 09/04/2012 [facility] ondansetron 4 mg, Route: PO, Drug form: TABDIS, ONCE, Dosing Weight 77.273, kg, Priority: STAT, Start date: 09/04/12 2:11:00, Stop date: 09/04/12 2:11:00 PO No Longer Active [facility] 09/04/2012 [facility] GI cocktail 30 ml, Route: PO, Drug Form: SUSP, Dosing Weight 77.273, kg, ONCE, Formulation #1: (Maalox 30ml - Viscous Lidocaine 10ml - Elixir 10ml), STAT, Start date: 09/04/12 2:11:00, Stop date: 09/04/12 2:11:00 PO No Longer Active [facility] 09/04/2012 [facility] Saline Flush 0.9% 5 mL, Route: IVP, Drug Form: INJ, Dosing Weight 77.273, kg, PRN, PRN Line Flush, Start date: 09/04/12 2:11:00, Duration: 24 hr, Stop date: 09/05/12 2:10:00 IVP No Longer Active [facility] 09/04/2012 [facility] Colace 100 mg oral capsule 100 mg, 1 cap, PO, Daily, 30 cap, Substitution Allowed, CAP PO Active [facility] 12/23/2011 [facility] Protonix 40 mg oral enteric coated tablet 40 mg, 1 tab, PO, Daily, 60 tab, Substitution Allowed, May substitute to another PPI less costly., ECTABMay substitute to another PPI less costly. PO Active [facility] 12/23/2011 [facility] Humulin N 100 units/mL subcutaneous injection 20 unit, 0.2 mL, SUB-Q, QAM, 1 vial, Substitution Allowed, SUSP SUB- Q Active [facility] 12/23/2011 [facility] Humulin N 20 unit, 0.2 mL, Route: SUB-Q, Drug form: INJ, QAM, Start date: 12/23/11 9:00:00, Duration: 30 day, Stop date: 01/21/12 9:00:00 SUB-Q No Longer Active [facility] 12/23/2011 [facility] Dextrose 5% with 0.45% NaCl IV 1,000 mL 1,000 mL, Rate: 30 ml/hr, Infuse over: 33.3 hr, Route: IV, Dosing Weight 60 kg, Total Volume: 1,000, Start date: 12/22/11 21:45:00, Stop date: 01/21/12 21:44:00 IV No Longer Active [facility] 12/23/2011 [facility] Humulin N 20 unit, 0.2 mL, Route: SUB-Q, Drug form: INJ, QPM, Start date: 12/22/11 17:00:00, Duration: 30 day, Stop date: 01/20/12 17:00:00 SUB-Q No Longer Active [facility] 12/22/2011 [facility] Humulin N 5 unit, 0.05 mL, Route: SUB-Q, Drug form: INJ, ONCE, Start date: 12/22/11 10:00:00, Stop date: 12/22/11 10:00:00 SUB-Q No Longer Active [facility] 12/22/2011 [facility] Sodium Chloride 0.45% IV 1,000 mL 1,000 mL, Rate: 100 ml/hr, Infuse over: 10 hr, Route: IV, Dosing Weight 60 kg, Total Volume: 1,000, Start date: 12/22/11 8:15:00, Duration: 30 day, Stop date: 01/21/12 8:14:00 IV No Longer Active [facility] 12/22/2011 [facility] Humulin N 15 unit, 0.15 mL, Route: SUB-Q, Drug form: INJ, Breakfast, Start date: 12/22/11 8:00:00, Duration: 30 day, Stop date: 01/20/12 8:00:00 SUB-Q No Longer Active [facility] 12/22/2011 [facility] Dextrose 50% in Water IV 50 mL, Route: IVP, Start date: 12/21/11 18:39:00, Duration: 30 day, Stop date: 01/20/12 18:38:00, PRN Blood Glucose Results IVP No Longer Active [facility] 12/21/2011 [facility] NovoLog FlexPen 18 unit, 0.18 mL, Route: SUB-Q, Drug form: SOLN, Sliding Scale, PRN Blood Glucose Results, Start date: 12/21/11 18:39:00, Duration: 30 day, Stop date: 01/20/12 18:38:00 SUB-Q No Longer Active [facility] 12/21/2011 [facility] glucagon 1 mg, Route: IM, Drug form: PDR/INJ, PRN, PRN Blood Glucose Results, Start date: 12/21/11 18:39:00, Duration: 30 day, Stop date: 01/20/12 18:38:00 IM No Longer Active [facility] 12/21/2011 [facility] enoxaparin 40 mg, 0.4 mL, Route: SUB-Q, Drug form: INJ, [id number], Start date: 12/21/11 12:00:00, Duration: 30 day, Stop date: 01/19/12 12:00:00 SUB-Q No Longer Active [facility] 12/21/2011 [facility] Colace 100 mg oral capsule 100 mg, 1 cap, Route: PO, Drug form: CAP, Daily, Start date: 12/21/11 9:00:00, Duration: 30 day, Stop date: 01/19/12 9:00:00 PO No Longer Active [facility] 12/21/2011 [facility] Citrate of Magnesia 150 mL, Route: PO, Drug Form: LIQ, ONCALL, PRN Bowel Movements, Start date: 12/21/11 8:00:00, Duration: 1 doses or times, Stop date: 12/22/11 0:00:00 PO No Longer Active [facility] 12/21/2011 [facility] potassium phosphate + Sodium Chloride 0.9% IV 250 mL 14 mmol, 4.67 mL, Route: IV, ONCE, Start date: 12/21/11 2:28:00, Stop date: 12/21/11 2:28:00 IV No Longer Active [facility] 12/21/2011 [facility] acetaminophen 500 mg, 1 tab, Route: PO, Drug form: TAB, Q6H, PRN Pain/Fever, Start date: 12/20/11 22:14:00, Duration: 30 day, Stop date: 01/19/12 22:13:00 PO No Longer Active [facility] 12/21/2011 [facility] Saline Flush 0.9% 5 ml, Route: IVP, Drug Form: INJ, Q12H, Start date: 12/20/11 21:00:00, Duration: 30 day, Stop date: 01/19/12 9:00:00 IVP No Longer Active [facility] 12/21/2011 [facility] magnesium citrate 150 ml, Route: PO, Drug Form: LIQ, ONCE, Start date: 12/20/11 16:52:00, Stop date: 12/20/11 16:52:00 PO No Longer Active [facility] 12/20/2011 [facility] Protonix 40 mg, 1 tab, Route: PO, Drug form: ECTAB, Daily, Start date: 12/20/11 16:30:00, Duration: 30 day, Stop date: 01/18/12 16:30:00 PO No Longer Active [facility] 12/20/2011 [facility] Sosa-Loami Heartburn Relief 2 tab, PO, PRN, PRN, heartburn, Substitution Allowed, Soft Stop PO Active 12/20/2011 [facility] Tylenol Caplet Extra Strength 500 mg oral tablet 1,000 mg, 2 tab, PO, Q4H, PRN, 120 tab, headache, Substitution Allowed PO Active 12/20/2011 [facility] Novolin N PenFill 100 units/mL subcutaneous injection 15 unit, SUB-Q, BID, 3 ml, Substitution Allowed, SUSP SUB- Q No Longer Active 12/20/2011 [facility] Novolin R PenFill 100 units/mL injectable solution per sliding scale, SUB-Q, QID-Before Meals, Substitution Allowed SUB-Q Active 12/20/2011 [facility] Zofran 4 mg, 2 mL, Route: IVP, Drug form: INJ, Q6H, PRN as needed for nausea/vomiting, Start date: 12/20/11 14:50:00, Duration: 30 day, Stop date: 01/19/12 14:49:00 IVP No Longer Active [facility] 12/20/2011 [facility] chlorhexidine topical 4% soap 1 appl, Route: BATHE, Q24H, Start date: 12/20/11 14:00:00, Duration: 30 day, Stop date: 01/18/12 14:00:00 BATHE No Longer Active [facility] 12/20/2011 [facility] D5W 1/2NS 1,000 mL 1,000 mL, Rate: 100 ml/hr, Infuse over: 10 hr, Route: IV, Dosing Weight 59.091 kg, Total Volume: 1,000, Start date: 12/20/11 14:00:00, Stop date: 01/19/12 13:59:00 IV No Longer Active [facility] 12/20/2011 [facility] Saline Flush 0.9% 5 ml, Route: IVP, Drug Form: INJ, PRN, PRN Line Flush, Start date: 12/20/11 13:12:00, Duration: 30 day, Stop date: 01/19/12 13:11:00 IVP No Longer Active [facility] 12/20/2011 [facility] Dextrose 50% in Water IV 50 mL, Route: IVP, Start date: 12/20/11 9:29:00, Duration: 30 day, Stop date: 01/19/12 9:28:00, PRN Blood Glucose Results IVP No Longer Active [facility] 12/20/2011 [facility] potassium phosphate + Sodium Chloride 0.9% IV 250 mL 14 mmol, 4.67 mL, Route: IVPB, PRN, PRN Abnormal Lab Result, Start date: 12/20/11 9:28:00, Duration: 1 doses or times, Stop date: Limited # of times IVPB No Longer Active [facility] 12/20/2011 [facility] potassium phosphate + Sodium Chloride 0.9% IV 250 mL 7 mmol, 2.33 mL, Route: IVPB, PRN, PRN Abnormal Lab Result, Start date: 12/20/11 9:27:00, Duration: 1 doses or times, Stop date: Limited # of times IVPB No Longer Active [facility] 12/20/2011 [facility] potassium chloride 20 mEq, 100 mL, Route: IVPB, Drug form: INJ, PRN, PRN Abnormal Lab Result, Start date: 12/20/11 9:26:00, Duration: 3 doses or times, Stop date: Limited # of times IVPB No Longer Active [facility] 12/20/2011 [facility] potassium chloride 20 mEq, 100 mL, Route: IVPB, Drug form: INJ, PRN, PRN Abnormal Lab Result, Start date: 12/20/11 9:25:00, Duration: 2 doses or times, Stop date: Limited # of times IVPB No Longer Active [facility] 12/20/2011 [facility] Novolin R 100 unit + Sodium Chloride 0.9% IV 99 mL 99 mL, Rate: Titrate per DKA protocol, Route: IV, Dosing Weight 59.091 kg, Total Volume: 100, Start date: 12/20/11 9:25:00, Duration: 30 day, Stop date: 01/19/12 9:24:00 IV No Longer Active [facility] 12/20/2011 [facility] Sodium Chloride 0.9% IV 1,000 mL 1,000 mL, Rate: 500 ml/hr, Infuse over: 2 hr, Route: IV, Dosing Weight 59.091 kg, Total Volume: 1,000, Start date: 12/20/11 9:23:00, Duration: 2 doses or times, Stop date: 12/20/11 13:22:00 IV No Longer Active [facility] 12/20/2011 [facility] NS + KCL 20mEq/L 1000ml (Premix) 1,000 mL 1,000 mL, Rate: 200 ml/hr, Infuse over: 5 hr, Route: IV, Dosing Weight 59.091 kg, Total Volume: 1,000, Start date: 12/20/11 8:46:00, Duration: 30 day, Stop date: 01/19/12 8:45:00 IV No Longer Active [facility] 12/20/2011 [facility] Sodium Chloride 0.9% (Bolus) IV 1,000 mL 1,000 mL, Rate: 1,000 ml/hr, Infuse over: 1 hr, Route: IV, Dosing Weight 59.091 kg, Total Volume: 1,000, Bolus dose, Priority: STAT, Start date: 12/20/11 8:12:00, Duration: 1 doses or times, Stop date: 12/20/11 9:11:00 IV No Longer Active [facility] 12/20/2011 [facility] Saline Flush 0.9% 5 ml, Route: IVP, Drug Form: INJ, PRN, PRN Line Flush, Start date: 12/20/11 8:12:00, Duration: 24 hr, Stop date: 12/21/11 8:11:00 IVP No Longer Active [facility] 12/20/2011 [facility] hydromorphone 1 mg, 1 mL, Route: IVP, Drug form: SOLN, ONCE, Priority: STAT, Start date: 12/20/11 8:12:00, Stop date: 12/20/11 8:12:00 IVP No Longer Active [facility] 12/20/2011 [facility] ondansetron 4 mg, 2 mL, Route: IVP, Drug form: INJ, ONCE, Priority: STAT, Start date: 12/20/11 8:12:00, Stop date: 12/20/11 8:12:00 IVP No Longer Active [facility] 12/20/2011 [facility] Reglan 10 mg, 2 mL, Route: IVP, Drug form: INJ, ONCE, Priority: STAT, Start date: 12/20/11 8:12:00, Stop date: 12/20/11 8:12:00 IVP No Longer Active [facility] 12/20/2011 [facility] Allergies, Adverse Reactions, Alerts Substance Category Reaction Severity Reaction type Status Date Reported Comments Source iodine Assertion Drug allergy Active [facility] Immunizations Immunization Date Given Site Status Last Updated Comments Source Hx influenza vaccine-unspecified<sup>1</sup> 03/14/2016 completed [facility] Location History: work [facility] Hx influenza vaccine-unspecified<sup>2</sup> 03/18/2013 completed [facility] Result Comment: done. Migrated from OBS ; Data migrated from [employer] on 06/30/2015. [facility] influenza virus vaccine, inactivated<sup>3</sup> 03/18/2013 Right Deltoid completed [facility] Result Comment: fluzone (>3 yrs.) [[id number]]. Migrated from OBS ; Data migrated from [employer] on 06/30/2015. [facility] Results Order Name Results Value Reference Range Date Interpretation Comments Source ENDOCRINOLOGY S Preg Negative *NA* (10/10/17 5:10 AM) Negative 10/10/2017 [facility] LIPIDS VLDL 51 10/10/2017 [facility] LIPIDS CHD Risk 3.90 3.90 - 5.80 10/10/2017 [facility] LIPIDS Chol 187 <=199 mg/dL 10/10/2017 [facility] LIPIDS HDL 48 >=61 mg/dL 10/10/2017 [facility] LIPIDS LDL (Calculated) 88 <=99 mg/dL 10/10/2017 [facility] LIPIDS Trig 256 <=149 mg/dL 10/10/2017 [facility] CARDIAC ENZYMES Total CK 216 12 - 191 10/10/2017 [facility] CARDIAC ENZYMES Troponin-I <0.02 0.00 - 0.40 10/10/2017 [facility] CARDIAC ENZYMES CK MB Index 0.9 0.0 - 2.5 10/10/2017 [facility] CARDIAC ENZYMES CK MB 2.0 0.5 - 3.6 10/10/2017 [facility] CARDIAC ENZYMES CK MB Index 0.9 0.0 - 2.5 10/09/2017 [facility] CARDIAC ENZYMES CK MB 2.1 0.5 - 3.6 10/09/2017 [facility] CARDIAC ENZYMES Troponin-I <0.02 0.00 - 0.40 10/09/2017 [facility] CARDIAC ENZYMES Total CK 244 12 - 191 10/09/2017 [facility] CHEM PANEL eGFR 85 10/09/2017 Result Comment: The eGFR is calculated [...] should be multiplied by the estimated BMI. [facility] CHEM PANEL CO2 26 24 - 32 10/09/2017 [facility] CHEM PANEL Chloride Lvl 106 95 - 109 10/09/2017 [facility] CHEM PANEL Calcium Lvl 8.9 8.5 - 10.5 10/09/2017 [facility] CHEM PANEL Albumin Lvl 3.7 3.5 - 5.0 10/09/2017 [facility] CHEM PANEL Total Protein 7.7 6.4 - 8.4 10/09/2017 [facility] CHEM PANEL ALT 25 0 - 65 10/09/2017 [facility] CHEM PANEL AST 17 0 - 37 10/09/2017 [facility] CHEM PANEL Alk Phos 143 39 - 136 10/09/2017 [facility] CHEM PANEL Bili Total 0.6 0.2 - 1.3 10/09/2017 [facility] CHEM PANEL AGAP 13.2 10.0 - 20.0 10/09/2017 [facility] CHEM PANEL Globulin 4.0 2.7 - 4.2 10/09/2017 [facility] CHEM PANEL B/C Ratio 17 6 - 25 10/09/2017 [facility] CHEM PANEL A/G Ratio 0.9 0.7 - 1.6 10/09/2017 [facility] CHEM PANEL BUN 14 7 - 22 10/09/2017 [facility] CHEM PANEL Glucose Lvl 89 70 - 99 10/09/2017 [facility] CHEM PANEL Sodium Lvl 141 135 - 145 10/09/2017 [facility] CHEM PANEL Creatinine Lvl 0.84 0.50 - 1.40 10/09/2017 [facility] CHEM PANEL Potassium Lvl 4.2 3.5 - 5.1 10/09/2017 [facility] CHEM PANEL Magnesium Lvl 2.5 1.8 - 2.4 10/09/2017 [facility] HEMATOLOGY Basophils 0.4 0.0 - 1.0 10/09/2017 [facility] HEMATOLOGY Segs-Bands # 7.8 1.5 - 8.1 10/09/2017 [facility] HEMATOLOGY Monocytes # 0.1 0.0 - 0.8 10/09/2017 [facility] HEMATOLOGY Lymphocytes # 0.9 1.0 - 5.5 10/09/2017 [facility] HEMATOLOGY Lymphocytes 10.3 20.0 - 40.0 10/09/2017 [facility] HEMATOLOGY Segs 88.2 45.0 - 75.0 10/09/2017 [facility] HEMATOLOGY Monocytes 1.0 2.0 - 12.0 10/09/2017 [facility] HEMATOLOGY Eosinophils 0.1 0.0 - 4.0 10/09/2017 [facility] HEMATOLOGY MCH 28.1 27.0 - 31.0 10/09/2017 [facility] HEMATOLOGY MCHC 33.8 32.0 - 36.0 10/09/2017 [facility] HEMATOLOGY RDW 13.4 11.5 - 14.5 10/09/2017 [facility] HEMATOLOGY Platelet 335 133 - 450 10/09/2017 [facility] HEMATOLOGY MPV 9.2 7.4 - 10.4 10/09/2017 [facility] HEMATOLOGY WBC 8.8 3.7 - 10.4 10/09/2017 [facility] HEMATOLOGY RBC 4.68 4.20 - 5.40 10/09/2017 [facility] HEMATOLOGY MCV 83.0 80.0 - 98.0 10/09/2017 [facility] HEMATOLOGY Hgb 13.1 12.0 - 16.0 10/09/2017 [facility] HEMATOLOGY Hct 38.8 36.0 - 48.0 10/09/2017 [facility] CARDIAC ENZYMES CK MB 0.8 0.5 - 3.6 04/11/2015 [facility] CARDIAC ENZYMES Total CK 73 12 - 191 04/11/2015 [facility] CARDIAC ENZYMES Troponin-I <0.02 0.00 - 0.40 04/11/2015 [facility] CARDIAC ENZYMES CK MB Index 1.1 0.0 - 2.5 04/11/2015 [facility] CHEM PANEL Lipase Lvl 80 73 - 393 04/11/2015 [facility] CHEM PANEL eGFR 92 04/11/2015 Result Comment: The eGFR is calculated [...] should be multiplied by the estimated BMI. [facility] CHEM PANEL Total Protein 6.9 6.4 - 8.4 04/11/2015 [facility] CHEM PANEL Calcium Lvl 8.5 8.5 - 10.5 04/11/2015 [facility] CHEM PANEL CO2 26 24 - 32 04/11/2015 [facility] CHEM PANEL Creatinine Lvl 0.79 0.50 - 1.40 04/11/2015 [facility] CHEM PANEL Bili Total 0.3 0.2 - 1.3 04/11/2015 [facility] CHEM PANEL Alk Phos 139 39 - 136 04/11/2015 [facility] CHEM PANEL AST 16 0 - 37 04/11/2015 [facility] CHEM PANEL ALT 25 0 - 65 04/11/2015 [facility] CHEM PANEL Albumin Lvl 3.1 3.5 - 5.0 04/11/2015 [facility] CHEM PANEL Globulin 3.8 2.0 - 4.0 04/11/2015 [facility] CHEM PANEL A/G Ratio 0.8 0.7 - 1.6 04/11/2015 [facility] CHEM PANEL B/C Ratio 10 6 - 25 04/11/2015 [facility] CHEM PANEL AGAP 9.8 10.0 - 20.0 04/11/2015 [facility] CHEM PANEL BUN 8 7 - 22 04/11/2015 [facility] CHEM PANEL Glucose Lvl 165 70 - 99 04/11/2015 [facility] CHEM PANEL Sodium Lvl 140 135 - 145 04/11/2015 [facility] CHEM PANEL Potassium Lvl 3.8 3.5 - 5.1 04/11/2015 [facility] CHEM PANEL Chloride Lvl 108 95 - 109 04/11/2015 [facility] CHEM PANEL Ketone Quantitative 0.06 <=0.27 mmol/L 04/11/2015 [facility] HEMATOLOGY MCH 28.1 27.0 - 31.0 04/11/2015 [facility] HEMATOLOGY RDW 13.1 11.5 - 14.5 04/11/2015 [facility] HEMATOLOGY MCHC 33.4 32.0 - 36.0 04/11/2015 [facility] HEMATOLOGY MPV 10.3 7.4 - 10.4 04/11/2015 [facility] HEMATOLOGY Platelet 242 133 - 450 04/11/2015 [facility] HEMATOLOGY Hgb 12.5 12.0 - 16.0 04/11/2015 [facility] HEMATOLOGY Hct 37.5 36.0 - 48.0 04/11/2015 [facility] HEMATOLOGY MCV 84.2 80.0 - 98.0 04/11/2015 [facility] HEMATOLOGY WBC 5.7 3.7 - 10.4 04/11/2015 [facility] HEMATOLOGY RBC 4.46 4.20 - 5.40 04/11/2015 [facility] HEMATOLOGY Monocytes # 0.6 0.0 - 0.8 04/11/2015 [facility] HEMATOLOGY Eosinophils # 0.3 0.0 - 0.5 04/11/2015 [facility] HEMATOLOGY Segs 50.1 45.0 - 75.0 04/11/2015 [facility] HEMATOLOGY Lymphocytes 32.6 20.0 - 40.0 04/11/2015 [facility] HEMATOLOGY Monocytes 11.1 2.0 - 12.0 04/11/2015 [facility] HEMATOLOGY Eosinophils 5.4 0.0 - 4.0 04/11/2015 [facility] HEMATOLOGY Segs-Bands # 2.8 1.5 - 8.1 04/11/2015 [facility] HEMATOLOGY Basophils 0.8 0.0 - 1.0 04/11/2015 [facility] HEMATOLOGY Lymphocytes # 1.8 1.0 - 5.5 04/11/2015 [facility] URINE AND STOOL UA Color Ltyellow [...] Est Negative (04/11/15 3:38 PM) Negative 04/11/2015 [facility] URINE AND STOOL UA Sq Epi Occasional /LPF Few /LPF 04/11/2015 [facility] URINE CHEM U Preg Negative (04/11/15 3:38 PM) Negative 04/11/2015 [facility] URINE AND STOOL Fecal Leukocyte Few 3 (12/25/13 8:00 AM) 12/25/2013 <sup>3</sup>Interpretive Data: A Value of None Seen, Rare, or Few is Normal. [facility] URINE AND STOOL UA Color Colorless 12/25/2013 [facility] URINE AND STOOL UA Urobilinogen <=1.0 mg/dL 0.1 - 1.0 12/25/2013 [facility] URINE AND STOOL UA Blood Negative (12/25/13 7:41 AM) Negative 12/25/2013 [facility] URINE AND STOOL UA Nitrite Negative (12/25/13 7:41 AM) Negative 12/25/2013 [facility] URINE AND STOOL UA Ketones Trace mg/dL Negative mg/dL 12/25/2013 [facility] URINE AND STOOL UA Bili Negative *NA* (12/25/13 7:41 AM) Negative 12/25/2013 [facility] URINE AND STOOL UA Bacteria Occasional /HPF None Seen /HPF 12/25/2013 [facility] URINE AND STOOL UA RBC 1 0 - 2 12/25/2013 [facility] URINE AND STOOL UA Sq Epi Occasional /LPF Few /LPF 12/25/2013 [facility] URINE AND STOOL UA WBC 1 0 - 5 12/25/2013 [facility] URINE AND STOOL UA Leuk Est Negative (12/25/13 7:41 AM) Negative 12/25/2013 [facility] URINE AND STOOL UA pH 6.0 5.0 - 8.0 12/25/2013 [facility] URINE AND STOOL UA Spec Grav 1.015 <=1.030 12/25/2013 [facility] URINE AND STOOL UA Glucose 500 mg/dL Negative mg/dL 12/25/2013 [facility] URINE AND STOOL UA Protein Negative mg/dL Negative mg/dL 12/25/2013 [facility] URINE AND STOOL UA Turbidity Clear (12/25/13 7:41 AM) Clear 12/25/2013 [facility] URINE CHEM U Preg Negative (12/25/13 7:41 AM) Negative 12/25/2013 [facility] CHEM PANEL Lipase Lvl 53 73 - 393 12/25/2013 [facility] CHEM PANEL A/G Ratio 0.9 0.7 - 1.6 12/25/2013 [facility] CHEM PANEL B/C Ratio 16 6 - 25 12/25/2013 [facility] CHEM PANEL Globulin 3.9 2.0 - 4.0 12/25/2013 [facility] CHEM PANEL AGAP 9.8 10.0 - 20.0 12/25/2013 [facility] CHEM PANEL Alk Phos 129 39 - 136 12/25/2013 [facility] CHEM PANEL Bili Total 0.6 0.2 - 1.3 12/25/2013 [facility] CHEM PANEL AST 12 0 - 37 12/25/2013 [facility] CHEM PANEL ALT 19 0 - 65 12/25/2013 [facility] CHEM PANEL Total Protein 7.6 6.4 - 8.4 12/25/2013 [facility] CHEM PANEL Albumin Lvl 3.7 3.5 - 5.0 12/25/2013 [facility] CHEM PANEL Calcium Lvl 9.4 8.5 - 10.5 12/25/2013 [facility] CHEM PANEL Potassium Lvl 3.8 3.5 - 5.1 12/25/2013 [facility] CHEM PANEL CO2 28 24 - 32 12/25/2013 [facility] CHEM PANEL Chloride Lvl 100 95 - 109 12/25/2013 [facility] CHEM PANEL eGFR 79 12/25/2013 <sup>1</sup>Result Comment: The eGFR is calculated using the CKD-EPI formula. In most young, healthy individuals the eGFR will be >90 mL/min/1.73m2. The eGFR declines with age. An eGFR of 60-89 may be normal in some populations, particularly the elderly, for whom the CKD-EPI formula has not been extensively validated. Use of the eGFR is not recommended in the following populations:& lt;br/>
Individuals with unstable creatinine concentrations, including patients [...] should be multiplied by the estimated BMI. [facility] CHEM PANEL Sodium Lvl 134 135 - 145 12/25/2013 [facility] CHEM PANEL Creatinine Lvl 0.9 0.5 - 1.4 12/25/2013 [facility] CHEM PANEL BUN 14 7 - 22 12/25/2013 [facility] CHEM PANEL Glucose Lvl 354 70 - 99 12/25/2013 <sup>2</sup>Interpretive Data: Adult reference range values reflect the clinical guidelines
of the [place] [employer]. [facility] CHEM PANEL Amylase Lvl 12 25 - 115 12/25/2013 [facility] ENDOCRINOLOGY S Preg Negative *NA* (12/25/13 4:30 AM) Negative 12/25/2013 [facility] HEMATOLOGY Lymphocytes 11.8 20.0 - 40.0 12/25/2013 [facility] HEMATOLOGY Eosinophils 2.2 0.0 - 4.0 12/25/2013 [facility] HEMATOLOGY Monocytes 7.2 2.0 - 12.0 12/25/2013 [facility] HEMATOLOGY Basophils 0.3 0.0 - 1.0 12/25/2013 [facility] HEMATOLOGY Segs-Bands # 8.0 1.5 - 8.1 12/25/2013 [facility] HEMATOLOGY Lymphocytes # 1.2 1.0 - 5.5 12/25/2013 [facility] HEMATOLOGY Monocytes # 0.7 0.0 - 0.8 12/25/2013 [facility] HEMATOLOGY Eosinophils # 0.2 0.0 - 0.5 12/25/2013 [facility] HEMATOLOGY Segs 78.5 45.0 - 75.0 12/25/2013 [facility] HEMATOLOGY WBC 10.1 3.7 - 10.4 12/25/2013 [facility] HEMATOLOGY RBC 4.71 4.20 - 5.40 12/25/2013 [facility] HEMATOLOGY Platelet 263 133 - 450 12/25/2013 [facility] HEMATOLOGY MPV 10.1 7.4 - 10.4 12/25/2013 [facility] MCH 28.7 27.0 - 31.0 12/25/2013 [facility] HEMATOLOGY RDW 13.4 11.5 - 14.5 12/25/2013 [facility] HEMATOLOGY MCV 84.4 81.0 - 99.0 12/25/2013 [facility] MCHC 34.1 32.0 - 36.0 12/25/2013 [facility] Hct 39.8 36.0 - 48.0 12/25/2013 [facility] HEMATOLOGY Hgb 13.6 12.0 - 16.0 12/25/2013 [facility] IMMUNOLOGY CDC HIV 4th GEN Negative (12/25/13 4:30 AM) Negative 12/25/2013 [facility] BEDSIDE GLUCOSE TESTING Gluc POC Lifscn 74 70 - 99 11/12/2012 Normal <sup>1</sup>Interpretive Data: Upper Reportable Limit: 200 mg/dL. [facility] CHEMISTRY Glucose Lvl 38 70 - 99 11/12/2012 CRIT <sup>5</sup>Result Comment: Critical Result(s) called to Ranjit Kumar at 11/12/2012 13:36 by hb. Read back OK.
<sup>6</sup>Interpretive Data: Adult reference range values reflect the clinical guidelines
of the [place] [employer]. [facility] BEDSIDE GLUCOSE TESTING Comment1 Assess patient 11/12/2012 NA [facility] BEDSIDE GLUCOSE TESTING Gluc POC Lifscn 49 70 - 99 11/12/2012 LOW <sup>2</sup>Interpretive Data: Upper Reportable Limit: 200 mg/dL. [facility] BEDSIDE GLUCOSE TESTING Comment2 Verify w/ Lab 11/12/2012 NA [facility] BEDSIDE GLUCOSE TESTING Gluc POC Lifscn <40 70 - 99 11/12/2012 CRIT <sup>3</sup>Interpretive Data: Upper Reportable Limit: 200 mg/dL. [facility] BEDSIDE GLUCOSE TESTING Comment1 Notify RN/ 11/12/2012 NA [facility] BEDSIDE GLUCOSE TESTING Comment1 Notify RN/ 11/12/2012 [facility] CHEMISTRY Hgb A1C 8.1 <=5.6 11/12/2012 [place] <sup>9</sup>Interpretive Data: The reference range is based on the clinical practice guidelines
of the [place] [employer] for diabetes screening;
levels of 5.7%-6.4% are indicative of pre-diabetes. [facility] CHEMISTRY Troponin-I <0.02 0.00 - 0.40 11/11/2012 Normal [facility] CHEMISTRY CK MB 0.9 0.5 - 3.6 11/11/2012 Normal [facility] CHEMISTRY pCO2 Yoshi 42 38 - 52 11/11/2012 Normal [facility] CHEMISTRY pO2 Yoshi 51 20 - 49 11/11/2012 [facility] CHEMISTRY BE Yoshi 2 -2-2 - 2 11/11/2012 Normal [facility] CHEMISTRY HCO3 Yoshi 27 22 - 26 11/11/2012 [facility] CHEMISTRY O2 Sat Yoshi 86.1 40.0 - 70.0 11/11/2012 [facility] CHEMISTRY pH Yoshi 7.41 7.28 - 7.42 11/11/2012 Normal [facility] CHEMISTRY Temp Yoshi 37.0 11/11/2012 [facility] CHEMISTRY Site Yoshi Vein (11/11/2012 14:50:00) 11/11/2012 Normal [facility] CHEMISTRY FiO2 Yoshi 21.0 11/11/2012 [facility] CHEMISTRY Allens Yoshi N/A (11/11/2012 14:50:00) 11/11/2012 Normal [facility] CHEMISTRY Phosphorus 1.4 2.5 - 4.5 11/11/2012 CRIT <sup>8</sup>Result Comment: Critical Result(s) called to Hellen at 11/11/2012 15:26 byAE. Read back OK. [facility] CHEMISTRY Sodium Lvl 144 135 - 145 11/11/2012 Normal [facility] CHEMISTRY Potassium Lvl 3.5 3.5 - 5.1 11/11/2012 Normal [facility] CHEMISTRY Chloride Lvl 107 95 - 109 11/11/2012 Normal [facility] CHEMISTRY eGFR 92 11/11/2012 NA <sup>4</sup>Result Comment: The eGFR is calculated using the CKD-EPI formula. In most young, healthy individuals the eGFR will be >90 mL/min/1.73m2. The eGFR declines with age. An eGFR of 60-89 may be normal in some populations, particularly the elderly, for whom the CKD-EPI formula has not been extensively validated. Use of the eGFR is not recommended in the following populations:& lt;br/>
Individuals with unstable creatinine concentrations, including patients [...] should be multiplied by the estimated BMI. [facility] CHEMISTRY AST 12 0 - 37 11/11/2012 Normal [facility] CHEMISTRY Albumin Lvl 3.4 3.5 - 5.0 11/11/2012 LOW [facility] CHEMISTRY Total Protein 7.2 6.4 - 8.4 11/11/2012 Normal [facility] CHEMISTRY Calcium Lvl 8.4 8.5 - 10.5 11/11/2012 LOW [facility] CHEMISTRY Bili Total 0.2 0.2 - 1.3 11/11/2012 Normal [facility] CHEMISTRY Alk Phos 107 39 - 136 11/11/2012 Normal [facility] CHEMISTRY ALT 23 0 - 65 11/11/2012 Normal [facility] CHEMISTRY BUN 8 7 - 22 11/11/2012 Normal [facility] CHEMISTRY Creatinine Lvl 0.8 0.5 - 1.4 11/11/2012 Normal [facility] CHEMISTRY CO2 26 24 - 32 11/11/2012 Normal [facility] CHEMISTRY Glucose Lvl 156 70 - 99 11/11/2012 HI <sup>7</sup>Interpretive Data: Adult reference range values reflect the clinical guidelines
of the [place] [employer]. [facility] CHEMISTRY A/G Ratio 0.9 0.7 - 1.6 11/11/2012 Normal [facility] CHEMISTRY Globulin 3.8 2.0 - 4.0 11/11/2012 Normal [facility] CHEMISTRY B/C Ratio 10 6 - 25 11/11/2012 Normal [facility] CHEMISTRY AGAP 14.5 10.0 - 20.0 11/11/2012 Normal [facility] CHEMISTRY Magnesium Lvl 1.3 1.8 - 2.4 11/11/2012 LOW [facility] CHEMISTRY Ketone Quantitative 0.06 <=0.27 11/11/2012 Normal [facility] CHEMISTRY S Preg Negative *NA* (11/11/2012 14:48:00) Negative 11/11/2012 NA [facility] HEMATOLOGY WBC 7.6 3.7 - 10.4 11/11/2012 Normal [facility] HEMATOLOGY Hgb 12.8 12.0 - 16.0 11/11/2012 Normal [facility] HEMATOLOGY RBC 4.38 4.20 - 5.40 11/11/2012 Normal [facility] HEMATOLOGY MPV 9.5 7.4 - 10.4 11/11/2012 Normal [facility] HEMATOLOGY RDW 13.0 11.5 - 14.5 11/11/2012 Normal [facility] HEMATOLOGY Platelet 270 133 - 450 11/11/2012 Normal [facility] HEMATOLOGY MCV 86.6 81.0 - 99.0 11/11/2012 Normal [facility] HEMATOLOGY MCHC 33.6 32.0 - 36.0 11/11/2012 Normal [facility] HEMATOLOGY MCH 29.1 27.0 - 31.0 11/11/2012 Normal [facility] HEMATOLOGY Hct 38.0 36.0 - 48.0 11/11/2012 Normal [facility] HEMATOLOGY Eosinophils # 0.1 0.0 - 0.5 11/11/2012 Normal [facility] HEMATOLOGY Basophils # 0.0 0.0 - 0.2 11/11/2012 Normal [facility] HEMATOLOGY Monocytes # 0.6 0.0 - 0.8 11/11/2012 Normal [facility] HEMATOLOGY Lymphocytes # 1.4 1.0 - 5.5 11/11/2012 Normal [facility] HEMATOLOGY Basophils 0.5 0.0 - 1.0 11/11/2012 Normal [facility] HEMATOLOGY Segs-Bands # 5.5 1.5 - 8.1 11/11/2012 Normal [facility] HEMATOLOGY Monocytes 7.6 2.0 - 12.0 11/11/2012 Normal [facility] HEMATOLOGY Eosinophils 1.0 0.0 - 4.0 11/11/2012 Normal [facility] HEMATOLOGY Lymphocytes 18.2 20.0 - 40.0 11/11/2012 LOW [facility] HEMATOLOGY Segs 72.7 45.0 - 75.0 11/11/2012 Normal [facility] URINALYSIS UA Sq Epi Occasional /LPF *NA* (11/11/2012 14:48:00) Few 11/11/2012 NA [facility] URINALYSIS UA Leuk Est Negative (11/11/2012 14:48:00) Negative 11/11/2012 Normal [facility] URINALYSIS UA Bili Negative *NA* (11/11/2012 14:48:00) Negative 11/11/2012 NA [facility] URINALYSIS UA Blood Negative (11/11/2012 14:48:00) Negative 11/11/2012 Normal [facility] URINALYSIS UA Nitrite Negative (11/11/2012 14:48:00) Negative 11/11/2012 Normal [facility] URINALYSIS UA WBC 1 0 - 5 11/11/2012 Normal [facility] URINALYSIS UA Color Ltyellow 11/11/2012 NA [facility] URINALYSIS UA Urobilinogen 0.1 - 1.0 11/11/2012 NA [facility] URINALYSIS UA Turbidity Clear (11/11/2012 14:48:00) Clear 11/11/2012 Normal [facility] URINALYSIS UA pH 6.0 5.0 - 8.0 11/11/2012 Normal [facility] URINALYSIS UA Ketones Trace mg/dL *ABN* (11/11/2012 14:48:00) Negative 11/11/2012 ABN [facility] URINALYSIS UA Glucose 500 mg/dL *ABN* (11/11/2012 14:48:00) Negative 11/11/2012 ABN [facility] URINALYSIS UA Protein Negative mg/dL (11/11/2012 14:48:00) Negative 11/11/2012 Normal [facility] URINALYSIS UA Spec Grav 1.023 <=1.030 11/11/2012 Normal [facility] CHEMISTRY BUN 11 7 - 22 09/04/2012 Normal [facility] CHEMISTRY Glucose Lvl 232 70 - 99 09/04/2012 HI <sup>3</sup>Interpretive Data: Adult reference range values reflect the clinical guidelines
of the [place] [employer]. [facility] CHEMISTRY Creatinine Lvl 0.6 0.5 - 1.4 09/04/2012 Normal [facility] CHEMISTRY AST 16 0 - 37 09/04/2012 Normal [facility] CHEMISTRY Bili Total 0.5 0.2 - 1.3 09/04/2012 Normal [facility] CHEMISTRY Total Protein 7.4 6.4 - 8.4 09/04/2012 Normal [facility] CHEMISTRY ALT 26 0 - 65 09/04/2012 Normal [facility] CHEMISTRY Albumin Lvl 3.6 3.5 - 5.0 09/04/2012 Normal [facility] CHEMISTRY Calcium Lvl 8.1 8.5 - 10.5 09/04/2012 LOW [facility] CHEMISTRY Alk Phos 98 39 - 136 09/04/2012 Normal [facility] CHEMISTRY CO2 24 24 - 32 09/04/2012 Normal [facility] CHEMISTRY eGFR 114 09/04/2012 NA <sup>2</sup>Result Comment: The eGFR is calculated using the CKD-EPI formula. In most young, healthy individuals the eGFR will be >90 mL/min/1.73m2. The eGFR declines with age. An eGFR of 60-89 may be normal in some populations, particularly the elderly, for whom the CKD-EPI formula has not been extensively validated. Use of the eGFR is not recommended in the following populations:& lt;br/>
Individuals with unstable creatinine concentrations, including patients [...] should be multiplied by the estimated BMI. [facility] CHEMISTRY Potassium Lvl 4.2 3.5 - 5.1 09/04/2012 Normal [facility] CHEMISTRY Chloride Lvl 107 95 - 109 09/04/2012 Normal [facility] CHEMISTRY Sodium Lvl 138 135 - 145 09/04/2012 Normal [facility] CHEMISTRY AGAP 11.2 10.0 - 20.0 09/04/2012 Normal [facility] CHEMISTRY B/C Ratio 18 6 - 25 09/04/2012 Normal [facility] CHEMISTRY A/G Ratio 0.9 0.7 - 1.6 09/04/2012 Normal [facility] CHEMISTRY Globulin 3.8 2.0 - 4.0 09/04/2012 Normal [facility] CHEMISTRY Lipase Lvl 69 73 - 393 09/04/2012 LOW [facility] HEMATOLOGY MPV 10.3 7.4 - 10.4 09/04/2012 Normal [facility] HEMATOLOGY Platelet 245 133 - 450 09/04/2012 Normal [facility] HEMATOLOGY RDW 12.8 11.5 - 14.5 09/04/2012 Normal [facility] HEMATOLOGY MCHC 33.5 32.0 - 36.0 09/04/2012 Normal [facility] HEMATOLOGY MCH 29.3 27.0 - 31.0 09/04/2012 Normal [facility] HEMATOLOGY MCV 87.4 81.0 - 99.0 09/04/2012 Normal [facility] HEMATOLOGY Hct 38.7 36.0 - 48.0 09/04/2012 Normal [facility] HEMATOLOGY Hgb 12.9 12.0 - 16.0 09/04/2012 Normal [facility] HEMATOLOGY RBC 4.43 4.20 - 5.40 09/04/2012 Normal [facility] HEMATOLOGY WBC 8.0 3.7 - 10.4 09/04/2012 Normal [facility] HEMATOLOGY Basophils # 0.0 0.0 - 0.2 09/04/2012 Normal [facility] HEMATOLOGY Monocytes # 0.5 0.0 - 0.8 09/04/2012 Normal [facility] HEMATOLOGY Lymphocytes # 1.0 1.0 - 5.5 09/04/2012 Normal [facility] HEMATOLOGY Segs-Bands # 5.6 1.5 - 8.1 09/04/2012 Normal [facility] HEMATOLOGY Basophils 0.3 0.0 - 1.0 09/04/2012 Normal [facility] HEMATOLOGY Eosinophils # 0.8 0.0 - 0.5 09/04/2012 [facility] HEMATOLOGY Eosinophils 10.4 0.0 - 4.0 09/04/2012 HI [facility] HEMATOLOGY Monocytes 6.6 2.0 - 12.0 09/04/2012 Normal [facility] HEMATOLOGY Lymphocytes 12.9 20.0 - 40.0 09/04/2012 LOW [facility] HEMATOLOGY Segs 69.8 45.0 - 75.0 09/04/2012 Normal [facility] Microbiology Culture: Urine 09/04/2012 [facility] CHEMISTRY U Preg Negative (09/04/2012 00:30:00) Negative 09/04/2012 Normal [facility] URINALYSIS UA Glucose Negative mg/dL *NA* (09/04/2012 00:30:00) Negative 09/04/2012 NA [facility] URINALYSIS UA Protein Negative mg/dL (09/04/2012 00:30:00) Negative 09/04/2012 Normal [facility] URINALYSIS UA Trans Epi 3 <=0 09/04/2012 HI [facility] URINALYSIS UA Blood Small *ABN* (09/04/2012 00:30:00) Negative 09/04/2012 ABN [facility] URINALYSIS UA Bili Negative *NA* (09/04/2012 00:30:00) Negative 09/04/2012 NA [facility] URINALYSIS UA Ketones Negative mg/dL *NA* (09/04/2012 00:30:00) Negative 09/04/2012 [facility] URINALYSIS UA Nitrite Negative (09/04/2012 00:30:00) Negative 09/04/2012 Normal [facility] URINALYSIS UA Urobilinogen 2.0 0.1 - 1.0 09/04/2012 HI [facility] URINALYSIS UA Leuk Est Small *ABN* (09/04/2012 00:30:00) Negative 09/04/2012 ABN [facility] URINALYSIS UA RBC 2 0 - 2 09/04/2012 Normal [facility] URINALYSIS UA Sq Epi Occasional /LPF *NA* (09/04/2012 00:30:00) Few 09/04/2012 NA [facility] URINALYSIS UA [place] Yeast Few /HPF *ABN* (09/04/2012 00:30:00) None Seen 09/04/2012 ABN [facility] URINALYSIS UA WBC 22 0 - 5 09/04/2012 HI [facility] URINALYSIS UA pH 7.0 5.0 - 8.0 09/04/2012 Normal [facility] URINALYSIS UA Spec Grav 1.011 <=1.030 09/04/2012 Normal [facility] URINALYSIS UA Color Yellow *NA* (09/04/2012 00:30:00) Yellow 09/04/2012 [facility] URINALYSIS UA Turbidity Clear (09/04/2012 00:30:00) Clear 09/04/2012 Normal [facility] BEDSIDE GLUCOSE TESTING Comment1 Notify LEONCIO 09/04/2012 [facility] BEDSIDE GLUCOSE TESTING Gluc POC Lifscn 159 70 - 99 09/04/2012 HI <sup>1</sup>Interpretive Data: Upper Reportable Limit: 200 mg/dL. [facility] BEDSIDE GLUCOSE TESTING Comment1 Assess patient 12/23/2011 [facility] BEDSIDE GLUCOSE TESTING Comment2 Notify LEONCIO 12/23/2011 [facility] BEDSIDE GLUCOSE TESTING Gluc POC Lif[place]n 107 70 - 99 12/23/2011 HI <sup>2</sup>Interpretive Data: Upper Reportable Limit: 200 mg/dL. [facility] BEDSIDE GLUCOSE TESTING Comment2 Notify LEONCIO 12/23/2011 [facility] BEDSIDE GLUCOSE TESTING Comment1 Assess patient 12/23/2011 [facility] BEDSIDE GLUCOSE TESTING Gluc POC Lif[place]n 60 70 - 99 12/23/2011 LOW <sup>3</sup>Interpretive Data: Upper Reportable Limit: 200 mg/dL. [facility] BEDSIDE GLUCOSE TESTING Comment2 Notify RN/ 12/23/2011 NA [facility] BEDSIDE GLUCOSE TESTING Comment1 Assess patient 12/23/2011 NA [facility] BEDSIDE GLUCOSE TESTING Gluc POC Lif[place]n 328 70 - 99 12/23/2011 HI <sup>4</sup>Interpretive Data: Upper Reportable Limit: 200 mg/dL. [facility] CHEMISTRY Sodium Lvl 142 135 - 145 12/23/2011 Normal [facility] CHEMISTRY BUN 8 7 - 22 12/23/2011 Normal [facility] CHEMISTRY Creatinine Lvl 0.7 0.5 - 1.4 12/23/2011 Normal [facility] CHEMISTRY AGAP 12.6 10.0 - 20.0 12/23/2011 Normal [facility] CHEMISTRY CO2 27 24 - 32 12/23/2011 Normal [facility] CHEMISTRY Calcium Lvl 8.1 8.5 - 10.5 12/23/2011 LOW [facility] CHEMISTRY Chloride Lvl 106 95 - 109 12/23/2011 Normal [facility] CHEMISTRY Potassium Lvl 3.6 3.5 - 5.1 12/23/2011 Normal [facility] CHEMISTRY Glucose Lvl 154 70 - 99 12/23/2011 HI <sup>8</sup>Interpretive Data: Adult reference range values reflect the clinical guidelines
of the [place] [employer]. [facility] HEMATOLOGY Eosinophils # 0.4 0.0 - 0.5 12/23/2011 Normal [facility] HEMATOLOGY Basophils # 0.0 0.0 - 0.2 12/23/2011 Normal [facility] HEMATOLOGY Monocytes # 0.6 0.0 - 0.8 12/23/2011 Normal [facility] HEMATOLOGY Lymphocytes # 2.7 1.0 - 5.5 12/23/2011 Normal [facility] HEMATOLOGY Segs 34.1 45.0 - 75.0 12/23/2011 LOW [facility] HEMATOLOGY Lymphocytes 48.1 20.0 - 40.0 12/23/2011 HI [facility] HEMATOLOGY Segs-Bands # 1.9 1.5 - 8.1 12/23/2011 Normal [facility] HEMATOLOGY Basophils 0.6 0.0 - 1.0 12/23/2011 Normal [facility] HEMATOLOGY Eosinophils 7.2 0.0 - 4.0 12/23/2011 [facility] HEMATOLOGY Monocytes 10.0 2.0 - 12.0 12/23/2011 Normal [facility] HEMATOLOGY MPV 9.5 7.4 - 10.4 12/23/2011 Normal [facility] HEMATOLOGY Platelet 203 133 - 450 12/23/2011 Normal [facility] HEMATOLOGY RDW 13.4 11.5 - 14.5 12/23/2011 Normal [facility] HEMATOLOGY MCHC 33.9 32.0 - 36.0 12/23/2011 Normal [facility] HEMATOLOGY MCV 87.3 81.0 - 99.0 12/23/2011 Normal [facility] HEMATOLOGY Hct 32.3 36.0 - 48.0 12/23/2011 LOW [facility] HEMATOLOGY Hgb 11.0 12.0 - 16.0 12/23/2011 LOW [facility] HEMATOLOGY RBC 3.71 4.20 - 5.40 12/23/2011 LOW [facility] HEMATOLOGY MCH 29.6 27.0 - 31.0 12/23/2011 Normal [facility] HEMATOLOGY WBC 5.6 3.7 - 10.4 12/23/2011 Normal [facility] CHEMISTRY Phosphorus 2.9 2.5 - 4.5 12/22/2011 Normal [facility] CHEMISTRY Calcium Lvl 7.6 8.5 - 10.5 12/22/2011 LOW [facility] CHEMISTRY Creatinine Lvl 0.6 0.5 - 1.4 12/22/2011 Normal [facility] CHEMISTRY Glucose Lvl 399 70 - 99 12/22/2011 HI <sup>9</sup>Interpretive Data: Adult reference range values reflect the clinical guidelines
of the [place] [employer]. [facility] CHEMISTRY AGAP 10.8 10.0 - 20.0 12/22/2011 Normal [facility] CHEMISTRY CO2 22 24 - 32 12/22/2011 LOW [facility] CHEMISTRY Potassium Lvl 3.8 3.5 - 5.1 12/22/2011 Normal [facility] CHEMISTRY Chloride Lvl 109 95 - 109 12/22/2011 Normal [facility] CHEMISTRY BUN 6 7 - 22 12/22/2011 LOW [facility] CHEMISTRY Sodium Lvl 138 135 - 145 12/22/2011 Normal [facility] CHEMISTRY Ketone Quantitative 0.11 <=0.27 12/21/2011 Normal [facility] CHEMISTRY Osmolality 301 280 - 300 12/21/2011 [facility] CHEMISTRY AGAP 11.9 10.0 - 20.0 12/21/2011 Normal [facility] CHEMISTRY Calcium Lvl 7.7 8.5 - 10.5 12/21/2011 LOW [facility] CHEMISTRY CO2 21 24 - 32 12/21/2011 LOW [facility] CHEMISTRY Chloride Lvl 116 95 - 109 12/21/2011 HI [facility] CHEMISTRY eGFR >60 12/21/2011 NA <sup>5</sup>Result Comment: Expected eGFR for >20 yr. age group: >=60 ml/min/1.73 sq m

The eGFR calculation is not valid in or for

persons < 18 years of age.

From [employer] (NK[employer]) [facility] CHEMISTRY Creatinine Lvl 0.8 0.5 - 1.4 12/21/2011 Normal [facility] CHEMISTRY Potassium Lvl 3.9 3.5 - 5.1 12/21/2011 Normal [facility] CHEMISTRY Sodium Lvl 145 135 - 145 12/21/2011 Normal [facility] CHEMISTRY Glucose Lvl 162 70 - 99 12/21/2011 HI <sup>10</sup>Interpretive Data: Adult reference range values reflect the clinical guidelines
of the [place] [employer]. [facility] CHEMISTRY BUN 2 7 - 12/21/2011 [facility] CHEMISTRY Phosphorus 0.9 2.5 - 4.5 12/21/2011 CRIT <sup>11</sup>Result Comment: Critical Result(s) called to charu at 12/21/2011 12:49:26 CDT byemw. Read back OK. [facility] CHEMISTRY eGFR >60 12/21/2011 NA <sup>6</sup>Result Comment: Expected eGFR for >20 yr. age group: >=60 ml/min/1.73 sq m

The eGFR calculation is not valid in or for

persons < 18 years of age.

From [employer] ([employer]) [facility] CHEMISTRY Osmolality 302 280 - 300 12/21/2011 [facility] CHEMISTRY Osmolality 279 280 - 300 12/21/2011 LOW [facility] CHEMISTRY eGFR >60 12/21/2011 NA <sup>7</sup>Result Comment: Expected eGFR for >20 yr. age group: >=60 ml/min/1.73 sq m

The eGFR calculation is not valid in or for

persons < 18 years of age.

From [employer] ([employer]) [facility] CHEMISTRY Ketone Quantitative 0.07 <=0.27 12/21/2011 Normal [facility] CHEMISTRY Phosphorus 0.9 2.5 - 4.5 12/21/2011 CRIT <sup>12</sup>Result Comment: Critical Result(s) called to lori at 12/21/2011 02:11:45 CDT by natalia. Read back OK. [facility] CHEMISTRY Allens Yoshi N/A (12/21/2011 00:37:00) 12/21/2011 Normal [facility] CHEMISTRY Site Yoshi Vein (12/21/2011 00:37:00) 12/21/2011 Normal [facility] CHEMISTRY Temp Yoshi 37.0 12/21/2011 NA [facility] CHEMISTRY pCO2 Yoshi 36 38 - 52 12/21/2011 LOW [facility] CHEMISTRY pH Yoshi 7.30 7.28 - 7.42 12/21/2011 Normal [facility] CHEMISTRY HCO3 Yoshi 18 22 - 26 12/21/2011 LOW [facility] CHEMISTRY BE Yoshi -8 -2-2 - 2 12/21/2011 LOW [facility] CHEMISTRY pO2 Yoshi 35 20 - 49 12/21/2011 Normal [facility] CHEMISTRY O2 Sat Yoshi 75.4 40.0 - 70.0 12/21/2011 HI [facility] CHEMISTRY Ketone Quantitative 0.90 <=0.27 12/21/2011 [facility] BACTERIAL - SEROLOGY MRSA by PCR Negative 1 (12/20/2011 20:20:00) 12/21/2011 Normal <sup>1</sup>Interpretive Data: INTERPRETATION:
Negative......No MRSA DNA detected by PCR
Positive......MRSA DNA detected by PCR

ASSAY LIMITA TIONS:

This is a screening test for colonization [...] after
consultation with an infectious diseases specialist. [facility] CHEMISTRY O2 Sat Yoshi 45.9 40.0 - 70.0 12/20/2011 Normal [facility] CHEMISTRY FiO2 Yoshi 21.0 12/20/2011 NA [facility] CHEMISTRY Site Yoshi Vein (12/20/2011 18:00:00) 12/20/2011 Normal [facility] CHEMISTRY Allens Yoshi N/A (12/20/2011 18:00:00) 12/20/2011 Normal [facility] CHEMISTRY Temp Yoshi 37.0 12/20/2011 NA [facility] CHEMISTRY HCO3 Yoshi 17 22 - 26 12/20/2011 LOW [facility] CHEMISTRY BE Yoshi -8 -2-2 - 2 12/20/2011 LOW [facility] CHEMISTRY pH Yoshi 7.27 7.28 - 7.42 12/20/2011 LOW [facility] CHEMISTRY pCO2 Yoshi 40 38 - 52 12/20/2011 Normal [facility] CHEMISTRY pO2 Yoshi 21 20 - 49 12/20/2011 Normal [facility] Hgb A1C 10.1 12/20/2011 NA <sup>13</sup>Interpretive Data: HbA1C% eAG(mg/dL) Interpretation
6.0 126 Very good control
6.5 140 Very good control
7.0 154 Good Control
7.5 169 Good Control
8.0 183 Marginal Control, take action to lower
8.5 197 Marginal Control, take action to lower
9.0 212 Poor Control, take action to lower
9.5 226 Poor Control, take action to lower
10.0 240 Poor Control, take action to lower [facility] CHEMISTRY HCO3 Yoshi 11 22 - 26 12/20/2011 LOW [facility] CHEMISTRY pCO2 Yoshi 38 38 - 52 12/20/2011 Normal [facility] CHEMISTRY pO2 Yoshi 19 20 - 49 12/20/2011 LOW [facility] CHEMISTRY pH Yoshi 7.12 7.28 - 7.42 12/20/2011 CRIT <sup>14</sup>Result Comment: Critical Result(s) called to Dr Restrepo at _12/20/2011 13:42:02 CDT by_Kalina Aceves RRT. Read back OK. [facility] CHEMISTRY Allens Yoshi N/A (12/20/2011 13:30:00) 12/20/2011 Normal [facility] CHEMISTRY FiO2 Yoshi 21.0 12/20/2011 NA [facility] CHEMISTRY Temp Yoshi 37.0 12/20/2011 NA [facility] CHEMISTRY O2 Sat Yoshi 32.2 40.0 - 70.0 12/20/2011 LOW [facility] CHEMISTRY Site Yoshi Vein (12/20/2011 13:30:00) 12/20/2011 Normal [facility] CHEMISTRY BE Yoshi -16 -2-2 - 2 12/20/2011 LOW [facility] CHEMISTRY Lactic Acid Lvl 1.8 0.5 - 2.2 12/20/2011 Normal [facility] URINALYSIS UA Color Ltyellow 12/20/2011 NA [facility] URINALYSIS UA Urobilinogen 0.1 - 1.0 12/20/2011 NA [facility] URINALYSIS UA Spec Grav 1.022 <=1.030 12/20/2011 Normal [facility] URINALYSIS UA Turbidity Clear (12/20/2011 10:14:00) Clear 12/20/2011 Normal [facility] URINALYSIS UA Sq Epi Occasional /LPF *NA* (12/20/2011 10:14:00) Few 12/20/2011 NA [facility] URINALYSIS UA WBC 1 0 - 5 12/20/2011 Normal [facility] URINALYSIS UA Glucose 500 mg/dL *ABN* (12/20/2011 10:14:00) Negative 12/20/2011 ABN [facility] URINALYSIS UA Ketones 80 mg/dL *ABN* (12/20/2011 10:14:00) Negative 12/20/2011 ABN [facility] URINALYSIS UA Leuk Est Negative (12/20/2011 10:14:00) Negative 12/20/2011 Normal [facility] URINALYSIS UA Nitrite Negative (12/20/2011 10:14:00) Negative 12/20/2011 Normal [facility] URINALYSIS UA Blood Negative (12/20/2011 10:14:00) Negative 12/20/2011 Normal [facility] URINALYSIS UA Protein 30 mg/dL *ABN* (12/20/2011 10:14:00) Negative 12/20/2011 ABN [facility] URINALYSIS UA pH 5.0 5.0 - 8.0 12/20/2011 Normal [facility] URINALYSIS UA Bili Negative *NA* (12/20/2011 10:14:00) Negative 12/20/2011 NA [facility] CHEMISTRY FiO2 Yoshi 21.0 12/20/2011 NA [facility] CHEMISTRY Troponin-I <0.02 0.00 - 0.40 12/20/2011 Normal [facility] CHEMISTRY Total CK 49 12 - 191 12/20/2011 Normal [facility] CHEMISTRY Amylase Lvl 6 25 - 115 12/20/2011 LOW [facility] CHEMISTRY Lipase Lvl 42 73 - 393 12/20/2011 LOW [facility] CHEMISTRY Globulin 4.7 2.0 - 4.0 12/20/2011 [facility] CHEMISTRY A/G Ratio 0.9 0.7 - 1.6 12/20/2011 Normal [facility] CHEMISTRY B/C Ratio 15 6 - 25 12/20/2011 Normal [facility] CHEMISTRY Bili Total 0.4 0.2 - 1.3 12/20/2011 Normal [facility] CHEMISTRY ALT 25 0 - 65 12/20/2011 Normal [facility] CHEMISTRY Alk Phos 156 39 - 136 12/20/2011 [facility] CHEMISTRY AST 11 0 - 37 12/20/2011 Normal [facility] CHEMISTRY Albumin Lvl 4.4 3.5 - 5.0 12/20/2011 Normal [facility] CHEMISTRY Total Protein 9.1 6.4 - 8.4 12/20/2011 [facility] CHEMISTRY Magnesium Lvl 2.0 1.8 - 2.4 12/20/2011 Normal [facility] HEMATOLOGY MPV 10.4 7.4 - 10.4 12/20/2011 Normal [facility] HEMATOLOGY Platelet 353 133 - 450 12/20/2011 Normal [facility] HEMATOLOGY RDW 13.0 11.5 - 14.5 12/20/2011 Normal [facility] HEMATOLOGY MCHC 34.5 32.0 - 36.0 12/20/2011 Normal [facility] HEMATOLOGY MCH 30.1 27.0 - 31.0 12/20/2011 Normal [facility] HEMATOLOGY Hgb 15.0 12.0 - 16.0 12/20/2011 Normal [facility] HEMATOLOGY MCV 87.4 81.0 - 99.0 12/20/2011 Normal [facility] HEMATOLOGY Hct 43.6 36.0 - 48.0 12/20/2011 Normal [facility] HEMATOLOGY RBC 4.99 4.20 - 5.40 12/20/2011 Normal [facility] HEMATOLOGY WBC 8.2 3.7 - 10.4 12/20/2011 Normal [facility] HEMATOLOGY Eosinophils # 0.0 0.0 - 0.5 12/20/2011 Normal [facility] HEMATOLOGY Basophils # 0.0 0.0 - 0.2 12/20/2011 Normal [facility] HEMATOLOGY Segs-Bands # 6.6 1.5 - 8.1 12/20/2011 Normal [facility] HEMATOLOGY Basophils 0.3 0.0 - 1.0 12/20/2011 Normal [facility] HEMATOLOGY Eosinophils 0.0 0.0 - 4.0 12/20/2011 Normal [facility] HEMATOLOGY Monocytes 4.4 2.0 - 12.0 12/20/2011 Normal [facility] HEMATOLOGY Monocytes # 0.4 0.0 - 0.8 12/20/2011 Normal [facility] HEMATOLOGY Lymphocytes # 1.2 1.0 - 5.5 12/20/2011 Normal [facility] HEMATOLOGY Segs 80.3 45.0 - 75.0 12/20/2011 HI [facility] HEMATOLOGY Lymphocytes 15.0 20.0 - 40.0 12/20/2011 LOW [facility] Pathology Reports No Data Provided for This Section Diagnostic Reports Report Value Date Source Cardiac SPECT multi studies NM Location: [facility] The patient exercised for 7 minutes [...] wall motion. IMPRESSION: Normal myocardial perfusion study. [id number] 10/10/2017 [facility] Ext Lower Venous Doppler Bilat US Patient Name: AGUEDA NEWBY : 1970. Age: 46 years. Gender: Female. MR: [id number]. Location: [facility]. Provider: Sarah Merrill MD. EXAM: Ext Lower [...] RIGHT or LEFT lower extremity veins. SL: [id number] 10/09/2017 [facility] Chest 1view DX PROCEDURE: Chest 1view REASON FOR EXAM: See Clinic Indication CLINICAL INDICATION: Chest pain COMPARISON: 11/11/2012. FINDINGS: No acute process. No focal consolidation, pleural effusion, or pneumothorax. Stable cardiac silhouette and mediastinum. SL: 12 04/11/2015 [facility] Brain wo contrast CT CT scan of [...] Senescent changes are noted intracranially. SL:12 04/11/2015 [facility] Chest 1view Portable chest: The cardiac silhouette and pulmonary vasculature are within normal limits. The lungs and pleural spaces are clear. There is no significant change compared to 12/20/2011. IMPRESSION: No acute radiographic abnormality in the chest. SL:13 11/11/2012 [facility] Consultation Notes No Data Provided for This Section Discharge Summaries No Data Provided for This Section History and Physicals No Data Provided for This Section Vital Signs Vital Sign Value Date Comments Source Heart Rate 65 10/10/2017 [facility] Respitory Rate 18 10/10/2017 [facility] Systolic (mm Hg) 104 10/10/2017 [facility] Diastolic (mm Hg) 59 10/10/2017 [facility] Temperature Oral (F) 98.4 F 10/10/2017 [facility] Respitory Rate 17 10/10/2017 [facility] Systolic (mm Hg) 102 10/10/2017 [facility] Diastolic (mm Hg) 61 10/10/2017 [facility] Heart Rate 65 10/10/2017 [facility] Temperature Oral (F) 98.0 F 10/10/2017 [facility] Temperature Oral (F) 97.9 F 10/10/2017 [facility] Heart Rate 61 10/10/2017 [facility] Systolic (mm Hg) 114 10/10/2017 [facility] Diastolic (mm Hg) 60 10/10/2017 [facility] Respitory Rate 17 10/10/2017 [facility] Height 149.86 cm 10/09/2017 [facility] BMI Calculated 36.03 10/09/2017 [facility] Weight 80.909 10/09/2017 [facility] Temperature Oral (F) 98 F 04/11/2015 [facility] Systolic (mm Hg) 121 04/11/2015 [facility] Diastolic (mm Hg) 80 04/11/2015 [facility] Respitory Rate 18 04/11/2015 [facility] Heart Rate 65 04/11/2015 [facility] Weight 72.727 04/11/2015 [facility] BMI Calculated 28.4 04/11/2015 [facility] Height 160.02 cm 04/11/2015 [facility] Temperature Oral (F) 98.2 F 04/11/2015 [facility] Respitory Rate 18 04/11/2015 [facility] Heart Rate 70 04/11/2015 [facility] Systolic (mm Hg) 124 04/11/2015 [facility] Diastolic (mm Hg) 93 04/11/2015 [facility] Heart Rate 82 12/25/2013 [facility] Respitory Rate 16 12/25/2013 [facility] Diastolic (mm Hg) 62 12/25/2013 [facility] Systolic (mm Hg) 102 12/25/2013 [facility] Temperature Oral (F) 98.3 F 12/25/2013 [facility] Temperature Oral (F) 98.3 F 12/25/2013 [facility] Respitory Rate 18 12/25/2013 [facility] Heart Rate 74 12/25/2013 [facility] Diastolic (mm Hg) 71 12/25/2013 [facility] Systolic (mm Hg) 116 12/25/2013 [facility] Respitory Rate 16 12/25/2013 [facility] Heart Rate 70 12/25/2013 [facility] Diastolic (mm Hg) 68 12/25/2013 [facility] Systolic (mm Hg) 100 12/25/2013 [facility] Temperature Oral (F) 98.1 F 12/25/2013 [facility] Weight 68.182 12/25/2013 [facility] BMI Calculated 30.36 12/25/2013 [facility] Height 149.86 cm 12/25/2013 [facility] Respitory Rate 16 11/12/2012 [facility] Systolic (mm Hg) 92 11/12/2012 [facility] Diastolic (mm Hg) 57 11/12/2012 [facility] Temperature Oral (F) 98.4 F 11/12/2012 [facility] Heart Rate 71 11/12/2012 [facility] Heart Rate 70 11/12/2012 [facility] Systolic (mm Hg) 94 11/12/2012 [facility] Diastolic (mm Hg) 58 11/12/2012 [facility] Heart Rate 70 11/12/2012 [facility] Diastolic (mm Hg) 58 11/12/2012 [facility] Systolic (mm Hg) 94 11/12/2012 [facility] Temperature Oral (F) 97.8 F 11/12/2012 [facility] Respitory Rate 16 11/12/2012 [facility] Respitory Rate 18 11/12/2012 [facility] Temperature Oral (F) 98.1 F 11/12/2012 [facility] Weight 63.636 11/12/2012 [facility] Height 149.86 cm 11/12/2012 [facility] Weight 59.091 11/11/2012 [facility] Height 149.86 cm 11/11/2012 [facility] Weight 77.273 09/04/2012 [facility] Respitory Rate 16 12/23/2011 [facility] Temperature Oral (F) 98.7 F 12/23/2011 [facility] Heart Rate 102 12/23/2011 [facility] Systolic (mm Hg) 105 12/23/2011 [facility] Diastolic (mm Hg) 72 12/23/2011 [facility] Respitory Rate 17 12/23/2011 [facility] Systolic (mm Hg) 103 12/23/2011 [facility] Diastolic (mm Hg) 70 12/23/2011 [facility] Heart Rate 80 12/23/2011 [facility] Temperature Oral (F) 98.7 F 12/23/2011 [facility] Systolic (mm Hg) 103 12/23/2011 [facility] Diastolic (mm Hg) 68 12/23/2011 [facility] Respitory Rate 16 12/23/2011 [facility] Heart Rate 73 12/23/2011 [facility] Temperature Oral (F) 98.5 F 12/23/2011 [facility] Weight 60.000 12/21/2011 [facility] Height 149.86 cm 12/20/2011 [facility] Weight 59.091 12/20/2011 [facility] Encounters Location Location Details Encounter Type Encounter Number Reason For Visit Attending Provider ADM Date DC Date Status Source [facility] Inpatient [id number] DKA KONRAD AGUIAR 12/20/2011 12/23/2011 Active [facility] Outpatient [id number] ROUTINE SCREENING NANO LORENZANA 02/07/2012 02/07/2012 Active [facility] Emergency [id number] OTHER BOUBACAR RESTREPO 09/04/2012 09/04/2012 Active [facility] OU [id number] ELECTROLYTE DERANGEMENT;DM FERNANDO HENDRICKS 11/11/2012 11/12/2012 Active [facility] [id number] Vladislav Howell 12/25/2013 12/25/2013 [facility] [id number] Hailee Castellanos 04/11/2015 04/11/2015 [facility] Outpatient [id number] KARLABRITTANY LORENZANA 09/28/2016 [facility] Outpatient [id number] NANO LORENZAAN 10/26/2016 [facility] Outpatient [id number] NANO LORENZANA 12/26/2016 [facility] Observation [id number] Sarah Merrill 10/09/2017 10/10/2017 [facility] Outpatient [id number] SCREENING NANO LORENZANA Active [facility] Procedures Procedure Code Date Perfomer Comments Source section<sup>1</sup> [id number] x 5 [facility] Tubal ligation [id number] [facility] section <sup>1</sup> [id number] 1c-section x 5 [facility] Assessment and Plan No Data Provided for This Section Plan of Care No Data Provided for This Section Social History Social History Date Source Social History TypeResponse Substance Abuse Use: None. Exercise Exercise duration: 0. Employment/School Status: Employed. Work/School description: [employer].. Alcohol Current, Type Beer.1 Smoking Status Never smoker; Exposure to Tobacco Smoke None; Cigarette Smoking Last 365 Days No; Reg Smoking Cessation Counseling No entered on: 10/09/17 1socially 10/26/2016 [facility] Family History No Data Provided for This Section Advance Directives No Data Provided for This Section Functional Status No Data Provided for This Section
[2019-01-07] MEDS ORDERED: PANTOPRAZOLE 40 MG 10ML VIAL IV ONE (19:06)
[2019-01-07] MEDS ORDERED: ONDANSETRON HCL INJ 2MG/ML 2ML 2 MG/ML VIAL IV ONE (19:06)
[2019-01-07] MEDS ORDERED: SODIUM CHLORIDE 0.9% 1000ML 1,000 ML IV ONE (19:15)
[2019-01-07 20:40] LABS: BASOPHILS % 0.2 % (0.0-1.0); EOSINOPHILS # (AUTO) 0.1 (0.0-0.4); EOSINOPHILS % 0.5 % (0.0-6.0); HEMATOCRIT 38.4 % (34.2-44.1); HEMOGLOBIN 12.9 g/dL (12.0-16.0); LYMPHOCYTES # (AUTO) 0.6 (1.0-3.2); LYMPHOCYTES % 6.2 % (18.0-39.1); MEAN CORPUSCULAR HEMOGLOBIN 28.6 pg (28-32); MEAN CORPUSCULAR HGB CONC 33.6 g/dL (31-35); MEAN CORPUSCULAR VOLUME 85.1 fL (81-99); MONOCYTES # (AUTO) 0.3 (0.2-0.8); MONOCYTES % 3.3 % (4.4-11.3); NEUTROPHILS # (AUTO) 8.2 (2.1-6.9); NEUTROPHILS % 89.6 % (38.7-80.0); PLATELET COUNT 271 x10e3/uL (140-360); RED BLOOD COUNT 4.51 x10e6/uL (3.6-5.1); RED CELL DISTRIBUTION WIDTH 12.6 % (11.7-14.4)
[2019-01-07 20:59] LABS: ALANINE AMINOTRANSFERASE 20 IU/L (0-55); ALBUMIN 3.5 g/dL (3.5-5.0); ALBUMIN/GLOBULIN RATIO 1.1 (0.8-2.0); ALKALINE PHOSPHATASE 96 IU/L (40-150); ANION GAP 11.7 mmol/L (8-16); BLOOD UREA NITROGEN 11 mg/dL (7-26); BUN/CREATININE RATIO 15 (6-25); CALCIUM 8.6 mg/dL (8.4-10.2); CARBON DIOXIDE 24 mmol/L (22-29); CHLORIDE 104 mmol/L (98-107); CREATINE KINASE 57 IU/L (29-168); CREATININE, SERUM 0.72 mg/dL (0.57-1.11); EST GLOMERULAR FILTRATION RATE > 60 ML/MIN (60-); GLUCOSE 163 mg/dL (74-118); POTASSIUM 3.7 mmol/L (3.5-5.1); SODIUM 136 mmol/L (136-145)
[2019-01-07 21:00] LABS: AMYLASE 13 U/L (25-125)
[2019-01-07 21:01] LABS: LIPASE < 4 U/L (8-78)
[2019-01-07 22:53] LABS: BILIRUBIN,URINE NEGATIVE (NEGATIVE); CLARITY,URINE CLEAR (CLEAR); COLOR,URINE YELLOW (YELLOW); KETONES,URINE NEGATIVE (NEGATIVE); LEUKOCYTE ESTERASE ,URINE NEGATIVE (NEGATIVE); NITRITE,URINE NEGATIVE (NEGATIVE); PROTEIN,URINE DIPSTICK NEGATIVE (NEGATIVE); URINE UROBILINOGEN 0.2 mg/dL (0.2 - 1)
[2019-01-07 23:05] LABS: RBC,URINE 0-5 /HPF (0-5); WBC,URINE (MAN) 0-5 /HPF (0-5)
[2019-01-07 23:06] LABS: BACTERIA,URINE RARE /HPF; EPITHELIAL CELLS,URINE RARE /LPF
== END 2019-01-08 00:07 | disposition home or self-care (01) ==
LOC: ER 18:32
DX: R10.13 Epigastric pain (principal); R11.2 Nausea with vomiting, unspecified; R51 Headache; K29.00 Acute gastritis without bleeding
CPT/HCPCS: 36415; 80053; 81001; 82150; 82550; 82553; 82948; 83690; 84484; 85025; 93005; 96374; 96375; 99284; C9113; J2405; J7030